=== PATIENT | male | born 1965 | race Two or more races ===

== ENCOUNTER 2020-07-07 10:06 | Outpatient (REF) | payer OTHER, SELFPAY | END 2020-07-07 10:07 | disposition home or self-care (01) | LOC: HO.LAB 10:06 | PROVIDERS: Visit Provider Internal Medicine | DX: Z20.822 Contact with and (suspected) exposure to COVID-19 (principal) | CPT/HCPCS: 36415; C9803; U0003; U0005 ==

== ENCOUNTER 2020-07-20 12:20 | Outpatient (REF) | payer OTHER, SELFPAY | END 2020-07-20 12:21 | disposition home or self-care (01) | LOC: HO.LAB 12:20 | PROVIDERS: Visit Provider Internal Medicine | DX: Z20.822 Contact with and (suspected) exposure to COVID-19 (principal) | CPT/HCPCS: 36415; C9803; U0003; U0005 ==

== ENCOUNTER 2020-08-21 09:00 | Outpatient (REF) | payer OTHER, SELFPAY ==
[2020-08-26 14:45] LABS: FIT Int Ctl YES; FIT1 NEGATIVE (NEGATIVE); FIT2 NEGATIVE (NEGATIVE)
== END 2020-08-21 09:01 | disposition home or self-care (01) ==
LOC: HO.LNP 09:00
PROVIDERS: Visit Provider Internal Medicine Gastroenterology
DX: R19.5 Other fecal abnormalities (principal)
CPT/HCPCS: 82274

== ENCOUNTER → 2021-01-26 15:12 | Outpatient (BNVA) | payer OTHER, SELFPAY | PROVIDERS: Referring Provider Nurse Practitioner Family; Visit Provider Nurse Practitioner Family | DX: Z12.11 Encounter for screening for malignant neoplasm of colon (principal) | CPT/HCPCS: 99202 ==

== ENCOUNTER 2021-03-04 10:09 | Day surgery (SDC) | payer OTHER, SELFPAY ==
[2021-02-26 14:09] VITALS: BMI 26.2
--- NOTE | 2021-03-04 10:23 | MHC.SHP ---
Pre-Procedural Eval Section A Date of Service: 03/04/21 Section B Chief Complaint: screening Relevant Family History (Specify if Yes): No Relevant Social History: None Present Medications: see Short Stay Collaborative assessment Medical History: Significant History (DM) History of Previous Operations: Relevant previous surgery/procedure and date(s) (hernia ) Allergies: Allergies Allergy/AdvReac Type Severity Reaction Status Date / Time No Known Allergies Allergy Verified 01/26/21 15:24 Review of Systems Sugical H&P ROS: Negative: Constitution, Cardiovascular, Respiratory, Neurological, Psychiatric, Hem-Onc, Allergic/Immunologic, Gastrointestinal, Genitourinary, Musculoskeletal, Integumentary, Endocrine and Eyes/Ears/Nose/Throat Exam Surgical H&P Exam: Normal: HEENT, Normal: Heart, Normal: Lungs, Normal: Extremities, Normal: Abdomen, Normal: Skin and Normal: Neurological Plan Diagnosis/Plan: Unchanged I have reviewed the history and physical and performed a pertinent physical examination on my patient. No changes have occurred unless specified.
--- NOTE | 2021-03-04 10:34 | HO.ANESPROP2 ---
[facility] Past Medical History Medical History (Updated 02/26/21 @ 14:09 by Nani Peters RN) Diabetes Elevated cholesterol History of COVID-19 Functional capacity: independent ambulation Family History Family History (Updated 01/26/21 @ 15:35 by Key Colbert) Mother HTN (hypertension) Diabetes Heart disease Family history of problems with anesthesia: No Surgical History Surgical History H/O colonoscopy Hernia History of Problems with Anesthesia: No Social History Social History Household Members: Family Alcohol intake: current Alcohol intake frequency: holidays/special occasions only Patient Tobacco Use Status: Never used Tobacco Use of substances other than those prescribed or required for medical reasons: No Advance Directives Information Provided: Yes (informational brochure mailed) Advance Directives on File: No Meds Allergies Allergy/AdvReac Type Severity Reaction Status Date / Time No Known Allergies Allergy Verified 01/26/21 15:24 Home Medications Medication Instructions Recorded Confirmed Last Taken Type metformin 500 mg tablet,extended 1,000 mg PO BID 01/26/21 02/26/21 Unknown History release 24 hr rosuvastatin 10 mg tablet 10 mg PO BEDTIME 01/26/21 02/26/21 Unknown History Exam Exam Date and Time: March 04, 2021 1034 Height,Weight and Vital Signs: Height 6 ft 3 in Weight 95.254 kg Airway Mallampati Class: II TM Dist: >3cm Neck ROM: Full Heart: RRR Lungs: CTA Assessment and Plan Final Anesthetic Review Family History of Problems with Anesthesia: No History of Problems with Anesthesia: No
[2021-03-04 10:40] VITALS: BP 119/84; PULSE 72; RESP 16; TEMP 36.2; O2SAT 97
[2021-03-04 10:43] LABS: Glucose, Whole Blood 135 mg/dL (60-115)
[2021-03-04] MEDS: Lactated Ringers 1,000 ML 999 ML IV (10:48)
--- NOTE | 2021-03-04 10:51 | PM.OP ---
Brief Operative Note Date of Service: 03/04/21 Pre-op diagnosis: colon screening Post-op diagnosis: same Procedure: see op note Surgeon: Raul Xie MD Anesthesia: MAC Was an Audio Visual Technician used for this Procedure?: No Estimated blood loss (mL): 0 Condition: stable Disposition: PACU
--- NOTE | 2021-03-04 10:51 | W.PM.OPN ---
Operative Note Operative Note Date of Service: 03/04/21 Narrative: Operative Information Procedure Description: Colonoscopy COLONOSCOPY Instrument: Olympus variable stiffness pediatric scope 190L Colonoscopy Monitoring: Vital signs and clinical assessment, continuous EKG monitoring, Pulse oximetry, Carbon Dioxide monitoring and blood pressure monitoring were done throughout the procedure. Colon withdrawal time was 13 minutes. Procedure: The patient was placed in the left lateral decubitis position and pre-procedure medications were administered. After a digital rectal examination of the ano-rectum, the video colonoscope was inserted into the rectum and advanced through the colon to the cecum/TI. The colonoscope was slowly withdrawn in a retrograde panoramic fashion and the colon mucosa was carefully examined including a retroflexed view of the rectum. Findings and interventions are described below. Procedure Difficulty:easy Findings: Terminal Ileum-normal Cecum:normal Ascending Colon: normal Transverse Colon -normal Descending Colon:normal Sigmoid Colon: x 3 sessile polyps 9-10 mm removed with cold snare and retrieved Rectum: Retroflexion with small internal hemorrhoids, grade I Anorectum - normal Colon preparation: [place] Bowel Preparation Scale Right colon; 2 (some staining of cecum not fully cleanable) Transverse colon: 3 Left colon; 3 (0 = Unprepared colon segment with mucosa not seen due to solid stool that cannot be cleared. 1 = Portion of mucosa of the colon segment seen, but other areas of the colon segment not well seen due to staining, residual stool and/or opaque liquid. 2 = Minor amount of residual staining, small fragments of stool and/or opaque liquid, but mucosa of colon segment seen well. 3 = Entire mucosa of colon segment seen well with no residual staining, small fragments of stool or opaque liquid) Impression and Post Procedure Diagnosis: polyps internal hemorrhoids Plan: High fiber diet leaflet Avoid straining at stool, epsom salts and sitz bath, anusol supps or cream Repeat Colonoscopy in 3-5 years due to polyps or earlier if clinically indicated Above findings were reviewed with the patient and relevant handouts were provided if indicated.
[2021-03-04 11:24] VITALS: BP 102/66; PULSE 60; RESP 16; TEMP 36.3; O2SAT 98
[2021-03-04 11:42] VITALS: BP 109/76; PULSE 61; RESP 20; TEMP 36.3; O2SAT 99
--- NOTE | 2021-03-04 12:49 | HO.POSTANES ---
Post Anesthesia Evaluation Post Anesthesia Evaluation Vital Signs: Vital Signs Temp Pulse Resp BP Pulse Ox 03/04/21 11:42 97.4 F 61 20 109/76 99 03/04/21 11:24 97.4 F 60 16 102/66 98 03/04/21 10:40 97.1 F 72 16 119/84 97 Anesthesia: Monitored Mental Status: Awake Pain Control: Satisfactory Hydration: Adequate Anesthesia-Related Issues: No Anes. Related Issues
== END 2021-03-04 12:02 | disposition home or self-care (01) ==
PROVIDERS: PCP Nurse Practitioner Family; Visit Provider Internal Medicine Gastroenterology
PROC: 0DJD8ZZ Inspection of Lower Intestinal Tract, Via Natural or Artificial Opening Endoscopic (ICD-10-PCS; CPT 45378; principal; 2021-03-04 11:40)
DX: Z12.11 Encounter for screening for malignant neoplasm of colon (principal); D12.5 Benign neoplasm of sigmoid colon; K64.0 First degree hemorrhoids; E11.9 Type 2 diabetes mellitus without complications; Z79.84 Long term (current) use of oral hypoglycemic drugs
CPT/HCPCS: 45385; 82947; 88305

== ENCOUNTER → 2021-03-26 11:04 | Outpatient (BNVA) | payer OTHER, SELFPAY | PROVIDERS: Visit Provider Nurse Practitioner Family ==

== ENCOUNTER 2022-01-24 13:05 | Outpatient (REF) | payer OTHER, SELFPAY ==
--- NOTE | ~2022-01-24 | XR_ITS ---
EXAMINATION: XR LUMBOSACRAL SPINE WITH OBLIQUES CLINICAL INFORMATION: Low back pain COMPARISON: None TECHNIQUE: AP, both oblique, and lateral views of the lumbar spine. Lateral view of the lumbosacral junction. FINDINGS: Bone alignment is normal. No fracture or dislocation is seen. Disc spaces are normal. There is mild lower lumbar spine facet arthritis at L5-S1. No pars defect is seen. XR/XR lumbar spine 4V min IMPRESSION: Mild lower lumbar spine facet arthritis.
--- NOTE | ~2022-01-24 | XR_ITS ---
EXAMINATION: BILATERAL HAND X-RAY CLINICAL INFORMATION: Pain COMPARISON: None TECHNIQUE: 3 views of each hand FINDINGS: Bone alignment is normal. No fracture or dislocation is seen. Joint spaces are normal. Soft tissues are normal. XR/XR hand LT min 3V IMPRESSION: Unremarkable exam.
--- NOTE | ~2022-01-24 | XR_ITS ---
EXAMINATION: BILATERAL HAND X-RAY CLINICAL INFORMATION: Pain COMPARISON: None TECHNIQUE: 3 views of each hand FINDINGS: Bone alignment is normal. No fracture or dislocation is seen. Joint spaces are normal. Soft tissues are normal. XR/XR hand RT min 3V IMPRESSION: Unremarkable exam.
== END 2022-01-24 13:06 | disposition home or self-care (01) ==
LOC: HO.XRAY 13:05
PROVIDERS: PCP Registered Nurse; Visit Provider Registered Nurse
DX: M79.641 Pain in right hand (principal); M79.642 Pain in left hand; M54.50 Low back pain, unspecified
CPT/HCPCS: 72110; 73130

== ENCOUNTER 2023-06-30 13:44 | Outpatient (REF) | payer OTHER, SELFPAY ==
[2023-06-30 16:33] LABS: Estimated Average Glucose 183 mg/dL
[2023-06-30 16:35] LABS: Alanine Aminotransferase 23 U/L (0-40); Albumin Level 4.3 g/dL (3.5-5.0); Alkaline Phosphatase 60 U/L (39-117); Anion Gap 11 (12-20); Aspartate Amino Transferase 14 U/L (5-37); Bilirubin Total 0.3 mg/dL (0.0-1.0); Blood Urea Nitrogen 20 mg/dL (9-16); Calcium 9.4 mg/dL (8.4-10.2); Carbon Dioxide 31 mmol/L (22-29); Chloride 103 mmol/L (96-108); Cholesterol 225 mg/dL (<200); Estimated Glomerular Filt Rate > 60; Glucose Random 167 mg/dL (60-115); HDL Cholesterol 36 mg/dL (>40); LDL Cholesterol Calculated 121 mg/dL (<100); Potassium 4.6 mmol/L (3.3-5.1); Sodium 140 mmol/L (135-145); Total Protein 7.5 g/dL (6.5-8.0); Triglycerides 340 mg/dL (<150)
[2023-06-30 16:55] LABS: Prostate Specific Antigen 0.41 ng/mL (<0.05-4.0)
[2023-06-30 17:07] LABS: Creatinine Urine 100.79 mg/dL; Microalbumin Urine < 5.0 mg/L
== END 2023-06-30 13:45 | disposition home or self-care (01) ==
LOC: HO.HHCL 13:44
PROVIDERS: Visit Provider Registered Nurse
DX: Z00.00 Encounter for general adult medical examination without abnormal findings (principal); E11.65 Type 2 diabetes mellitus with hyperglycemia; Z12.5 Encounter for screening for malignant neoplasm of prostate
CPT/HCPCS: 36415; 80053; 80061; 82043; 82570; 83036; 84153

== ENCOUNTER 2023-07-21 10:14 | Outpatient (REF) | payer OTHER, SELFPAY ==
--- NOTE | ~2023-07-21 | XR_ITS ---
EXAMINATION: XR SHOULDER, LEFT CLINICAL INFORMATION: Left shoulder pain. Patient states pain over a month, denies injury, worse when sleeping on it. COMPARISON: None available. TECHNIQUE: 5 views of the left shoulder. FINDINGS: Moderate degenerative changes in the acromioclavicular joint with joint space narrowing and hypertrophic change. Glenohumeral alignment is preserved. XR/XR shoulder LT min 2V IMPRESSION: Moderate degenerative changes in the acromioclavicular joint.
[2023-07-27 11:53] LABS: Testosterone, Total 262 ng/dL (250-1100)
== END 2023-07-21 10:15 | disposition home or self-care (01) ==
LOC: HO.HHCL 10:14
PROVIDERS: Visit Provider Registered Nurse
DX: M25.512 Pain in left shoulder (principal); G89.29 Other chronic pain; N52.9 Male erectile dysfunction, unspecified
CPT/HCPCS: 36415; 73030; 84403; 84443

== ENCOUNTER 2023-09-26 14:45 | Outpatient (AMB) | payer OTHER, SELFPAY ==
--- NOTE | 2023-09-26 15:10 | MHC.OFFVIS ---
Intake Visit Reasons: erectile dysfunction Intake Note: New Patient presents for initial visit for erectile dysfunction Urology Medications: none Blood Thinner: none Deputy Sheriff Required: No Accompanied by: Self / Same As Patient Allergies No Known Allergies Allergy (Verified 09/26/23 17:21) Medication List - Last Reconciled 09/26/23 by MARTIN Naidu ibuprofen 600 mg PO Q6H PRN metformin ER 1,000 mg PO BID rosuvastatin 20 mg PO BEDTIME sildenafil (Viagra) 25 - 50 mg PO tadalafil (Cialis) 5 mg PO DAILY 90 days HPI Comments Details: Ascencion is a very pleasant 58-year-old male patient of Dr. Rizzo. He has a past medical history of hypercholesteremia and type 2 diabetes. He presents to the office today as a new patient for low libido. In discussion with the patient today he reports having followed up with his PCP has he has noted worsening libido issues over the last 6 months to a year. He reports initially he thought he was experiencing erectile dysfunction however he has had no issues with obtaining and maintaining erections. He reports feeling his sexual desire is significantly decreased. 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 He reports getting last November. He also discusses his struggle with maintaining his hemoglobin A1c. He reports initially upon diagnosis of his diabetes he had a hemoglobin A1c of 14 however he was able to get it down to 6 however has noted over the last 6-8 months he continues with elevated A1c most recently in July 2023 hemoglobin A1c 8.0. He otherwise denies any bothersome urinary issues or concerns. He denies urinary urgency, urinary frequency, incontinence, nocturia, hematuria, dysuria, foul smelling urine, changes to urinary stream, flank pain, fever, and or chills. He is happy with his current voiding parameters. In review of patient's chart it appears testosterone and PSA levels were ordered and obtained. These results reviewed with the patient today. PSA 07/08 0.4 Total testosterone 08/05 262 Discussed at length potential causes of low libido as well as lifestyle modifications to assist with low libido. He otherwise offers no other issues or concerns at this time. [facility] Medical History Tubular adenoma Elevated cholesterol History of COVID-19 Diabetes Surgical History H/O colonoscopy Hernia Family History Mother HTN (hypertension) Diabetes Heart disease Social History Household Members: Family Alcohol intake: current Alcohol intake frequency: holidays/special occasions only Patient Tobacco Use Status: Never used Tobacco Review of Systems Const All systems reviewed & are unremarkable except as noted in HPI and below Physical Exam Const General: cooperative, healthy appearing, comfortable, no acute distress, well developed, alert and awake Orientation/consciousness: patient oriented x3 Limitations: no limitations HEENT Head: Yes normal to inspection, Yes normocephalic and Yes atraumatic Ears: hearing grossly normal bilaterally Eyes General: appearance normal, both eyes and all related structures Neck Neck: Yes normal visual inspection and Yes trachea midline Chest Chest palpation & inspection: normal inspection of the chest Resp Effort & Inspection: normal respiratory effort and able to speak in complete sentences Cardio Rate: regular rate GI Inspection: Yes normal to inspection General: Yes no CVA tenderness Back/Spine/Pelvis Back: no CVA tenderness Skin General skin exam: no rashes or lesions noted Neuro General: patient oriented x3 Extrem General: Yes normal to inspection Psych Appearance: grossly normal and well kempt Mental Status: mental status grossly normal Speech and movement: Normal speech and movement present and Clear speech present Affect: normal affect Attitude: cooperative Thought process: Normal thought process present Thought content: Normal thought content present Insight: Fair insight present (Psych) Judgement: Fair judgement present (Psych) Results AMB Urinalysis, Automated UA Leukoctes 0 Ladi/uL Last Edit by [employer] Roberta on 09/26/23 15:26 UA Nitrite Negative Last Edit by [employer] Roberta on 09/26/23 15:26 UA Urobilinogen 0.2 mg/dL Last Edit by [employer] on 09/26/23 15:26 UA Protein 0 mg/dL Last Edit by [employer] on 09/26/23 15:26 UA pH 5.0 Last Edit by [employer] on 09/26/23 15:26 UA Blood 0 Mando/uL Last Edit by Beba Lamgen on 09/26/23 15:26 UA Specific [place] 1.030 Last Edit by Beba Carolegen on 09/26/23 15:26 UA Ketone Negative Last Edit by Beba Carolegen on 09/26/23 15:26 UA Bilirubin 0 mg/dL Last Edit by Beba Carolegen on 09/26/23 15:26 UA Glucose 0 mg/dL Last Edit by Beba Carolegen on 09/26/23 15:26 Results Reviewed Results Reviewed: Laboratory Last Values Urine pH (Auto) 5.0 09/26/23 15:24 Specific [place] (Auto) 1.030 09/26/23 15:24 Urine Protein (Auto) 0 mg/dL 09/26/23 15:24 Glucose (UA)(Auto) 0 mg/dL 09/26/23 15:24 Urine Ketones (Auto) Negative 09/26/23 15:24 Urine Blood (Auto) 0 Mando/uL 09/26/23 15:24 Urine Nitrite (Auto) Negative 09/26/23 15:24 Urine Bilirubin (Auto) 0 mg/dL 09/26/23 15:24 Urine Urobilinogen (Auto) 0.2 mg/dL 09/26/23 15:24 Leukocyte Esterase (Auto) 0 Ladi/uL 09/26/23 15:24 Assessment & Plan Assessment & Plan (1) Low libido: Code(s): R68.82 - Decreased libido Category: Medical Plan In office urinalysis results reviewed with the patient today; as noted above. Recent PSA and testosterone results reviewed with the patient today; as noted above. Discussed at length potential causes of low libido as well as further treatment options. Start low-dose Cialis 5 mg as discussed and prescribed. Patient currently denies any bothersome urinary issues or concerns. He reports be happy with current voiding parameters. Discussed at length importance of managing diabetes for improvement in overall health and well-being as well as low libido. Will obtain testosterone free and total in 3 months. Follow-up in 3 months with lab to be completed prior; or sooner with any issues, concerns, and or questions. Orders: Orders AMB Urinalysis Automated Today Z13.9 - Encounter for screening, unspecified Testosterone, Free/Total 3 Months E11.69 - Type 2 diabetes mellitus with other specified complication, N52.1 - Erectile dysfunction due to diseases classified elsewhere Medications: New tadalafil (Cialis) [id number] [facility] [id number] Member [id number] 5 mg PO DAILY 90 days 90 tabs 0RF Patient Instructions: The patient had an opportunity to ask questions regarding the treatment plan. All questions were answered. Physical exam, labs, and imaging were discussed and reviewed in detail. As well as risks, benefits, and discussion of treatment choices. No major barriers to understanding were identified. The patient expressed understanding and agreement with the above treatment plan. The patient was made aware they should contact our office by phone for worsening of their current condition, the appearance of new symptoms, or with any questions or concerns. Compliance is encouraged with any medications and follow up testing that is ordered. It is a privilege to be allowed the opportunity to participate in? your urological care.? Again, if you have any questions or concerns If you have any questions or concerns please do not hesitate to contact me. The office is [phone]. This note is constructed using voice recognition software. While every effort has been made to ensure accuracy stone gang sawyer errors may have been included. Yours sincerely, MARTIN Naidu Coding Level of Care Code New Pt Level 4 (60740) Diagnoses Low libido R68.82
== END 2023-09-26 15:57 | disposition home or self-care (01) ==
PROVIDERS: PCP Registered Nurse; Visit Provider Nurse Practitioner Family
DX: R68.82 Decreased libido (principal); Z13.9 Encounter for screening, unspecified
CPT/HCPCS: 99204

== ENCOUNTER → 2023-09-26 14:45 | Outpatient (BNVA) | payer OTHER, SELFPAY | PROVIDERS: PCP Registered Nurse; Visit Provider Nurse Practitioner Family | DX: R68.82 Decreased libido (principal); E11.69 Type 2 diabetes mellitus with other specified complication; N52.1 Erectile dysfunction due to diseases classified elsewhere | CPT/HCPCS: 81003; 99202 ==

== ENCOUNTER 2023-11-14 09:51 | Outpatient (AMB) | payer OTHER, SELFPAY ==
--- NOTE | 2023-11-14 10:08 | A.OFFVIS_ITS ---
Vital Signs 11/14/23 10:13 Height 6 ft 3 in Weight 214 lb 11.684 oz BMI 26.8 BP 124/68 Blood Pressure Location Lt brachial Position Sitting Pulse 66 Pulse Source Pulse Oximeter Pulse Oximetry (%) 98 Oxygen Delivery Method Room Air Intake Visit Reasons: 3 year recall Colonoscopy Intake Note: Ascencion presents in office for a scheduled 3 year FUV for recall colo s/p CC; Pt reports that they have remained stable since their previous colo s/p. Pt denies any sx or signifcant concerns at this time. 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 Patient will need to have her colonoscopy screening done in 3 years. As mentioned above in HPI patient denies any him melena, hematochezia, unintentional weight loss or ribbon like stools. Discussed with him early colorectal screening in blood relatives. Patient will call us sooner if he will have any symptoms. Status post colonoscopy As mentioned above in HPI patient denies any ill effects from the prep, anesthesia or procedure itself. Tubular adenoma without dysplasia or carcinoma found. Colorectal screening in 3 years. Patient will call us sooner if he will have any symptoms. Patient denies any GI symptoms moving his bowels normally. He is agreeable to plan of care and verbalizes understanding of instructions. He was given the opportunity to ask questions all questions answered TODAY'S VISIT: Patient reports that he has been feeling well since last time we have seen him. Last colonoscopy showed tubular adenoma without high-grade dysplasia or carcinoma and 3 years recommendation was made for colonoscopy. Patient denies any melena, hematochezia, unintentional weight loss or ribbon like stools. No issues with anesthesia in the past. No history of sleep apnea. Patient tolerate prep and procedure last time. Patient denies any family history of colorectal cancer COUNT INCLUDES [facility] Medical History Tubular adenoma Elevated cholesterol History of COVID-19 Diabetes Surgical History H/O colonoscopy Hernia Family History Mother HTN (hypertension) Diabetes Heart disease Social History Household Members: Family Alcohol intake: current Alcohol intake frequency: holidays/special occasions only Patient Tobacco Use Status: Never used Tobacco Review of Systems Const Denies weight gain and Denies weight loss ENT Reports no additional complaints, Denies dysphagia and Denies odynophagia Card Reports no additional complaints Resp Reports no additional complaints GI Denies abdominal pain, Denies belching, Denies melena, Denies bloating, Denies change in bowel habits, Denies dysphagia, Denies excessive flatus, Denies dyspepsia, Denies heartburn, Denies diarrhea, Denies loose stools, Denies nausea, Denies odynophagia and Denies vomiting Reports no additional complaints Musc Reports no additional complaints Neuro Reports no additional complaints Psych Reports no additional complaints Endo Reports no additional complaints Physical Exam Vital Signs: Last Vital Signs Pulse 66 11/14/23 10:13 BP 124/68 11/14/23 10:13 Pulse Ox 98 11/14/23 10:13 Oxygen Delivery Method Room Air 11/14/23 10:13 BMI result Body Mass Index 26.8 Const General: healthy appearing, no acute distress and well developed Nutritional Appearance: well nourished Orientation/consciousness: patient oriented x3 Resp Effort & Inspection: normal respiratory effort, able to speak in complete sen tences, no tracheal deviation and symmetric chest movement Auscultation: clear to auscultation bilaterally Cardio Rate: regular rate GI Inspection: Yes normal to inspection and No distended Palpation (GI): Soft to palpation, not firm, nontender and No hepatosplenomegaly present Auscultation: normal bowel sounds General: Yes no CVA tenderness Back/Spine/Pelvis Back: no CVA tenderness Skin General skin exam: elasticity normal, turgor normal and dry skin Neuro General: patient oriented x3 Psych Appearance: grossly normal Mental Status: mental status grossly normal Assessment & Plan Assessment & Plan (1) Tubular adenoma: Code(s): D36.9 - Benign neoplasm, unspecified site Category: Medical (2) Screen for colon cancer: Code(s): Z12.11 - Encounter for screening for malignant neoplasm of colon Plan What to expect before during and after procedure discussed with patient. Patient will have split MiraLax prep and Dulcolax. Stressed the importance about good bowel prep and clear liquid diet day before procedure. Patient denies any cardiac or respiratory symptoms. No history of sleep apnea. No issues with anesthesia in the past. Not on any anticoagulation medication. Patient will follow-up in the office after the procedure, sooner on as needed basis. He is agreeable to this plan and verbalizes understanding of instructions. He was given the opportunity to ask questions and all questions answered. Thank you for allowing me participate in his care Medications: New bisacodyl (Dulcolax (bisacodyl)) take 4 tabs at noon the day before your colonoscopy 20 mg (4 x 5 mg) PO ONCE 4 tabs 0RF 1 day Z12.11 - Encounter for screening for malignant neoplasm of colon polyethylene glycol 3350 (Miralax) As directed by gastroenterology department at [facility] 238 grams PO ONCE 238 grams 0RF Z12.11 - Encounter for screening for malignant neoplasm of colon Coding Level of Care Code Est Pt Level 3 (72936) Diagnoses Tubular adenoma D36.9 Screen for colon cancer Z12.11 Time Spent (min) 30 Comment 20 minutes spent with patient and additional 10 minutes spent reviewing his records
[2023-11-14 10:13] VITALS: BP 124/68; PULSE 66; O2SAT 98; BMI 26.8
== END 2023-11-14 10:58 | disposition home or self-care (01) ==
PROVIDERS: PCP Registered Nurse; Visit Provider Nurse Practitioner Family
DX: D36.9 Benign neoplasm, unspecified site (principal); Z12.11 Encounter for screening for malignant neoplasm of colon
CPT/HCPCS: 99213

== ENCOUNTER → 2023-11-14 09:51 | Outpatient (BNVA) | payer OTHER, SELFPAY | PROVIDERS: PCP Registered Nurse; Visit Provider Nurse Practitioner Family | DX: Z12.11 Encounter for screening for malignant neoplasm of colon (principal); D36.9 Benign neoplasm, unspecified site | CPT/HCPCS: 99212 ==

== ENCOUNTER 2023-12-22 09:06 | Outpatient (REF) | payer OTHER, SELFPAY ==
[2023-12-29 11:34] LABS: Testosterone, Free 56.9 pg/mL (35.0-155.0); Testosterone, Total 262 ng/dL (250-1100)
== END 2023-12-22 09:07 | disposition home or self-care (01) ==
LOC: HO.HHCL 09:06
PROVIDERS: Visit Provider Nurse Practitioner Family
DX: E11.69 Type 2 diabetes mellitus with other specified complication (principal); N52.1 Erectile dysfunction due to diseases classified elsewhere
CPT/HCPCS: 36415; 84402; 84403

== ENCOUNTER 2024-01-08 08:49 | Outpatient (AMB) | payer OTHER, SELFPAY ==
--- NOTE | 2024-01-08 08:49 | A.OFFVIS_ITS ---
Intake Visit Reasons: follow up labs Intake Note: Patient presents for tele visit follow up on: erectile dysfunction and testosterone lab results Testosterone: 262 Free Testosterone: 56.9 Urology Medications: sildenafil and tadalafil Blood Thinner: none Necktie Centralizing Machine Operator Required: No Accompanied by: Self / Same As Patient Allergies No Known Allergies Allergy (Verified 01/08/24 09:04) Medication List - Last Reconciled 01/08/24 by MARTIN Naidu bisacodyl (Dulcolax (bisacodyl)) 20 mg (4 x 5 mg) PO ONCE 1 day ibuprofen 600 mg PO Q6H PRN metformin ER 1,000 mg PO BID polyethylene glycol 3350 (Miralax) 238 grams PO ONCE rosuvastatin 20 mg PO BEDTIME sildenafil (Viagra) 25 - 50 mg PO tadalafil (Cialis) 5 mg PO DAILY 90 days HPI Comments Details: Ascencion is a very pleasant 58-year-old male patient of Dr. Rizzo. He has a past medical history of hypercholesteremia and type 2 diabetes. He is being follow-up on today via telehealth. Of note, patient was seen approximately 3 months ago as a new patient for low libido at which time low-dose Cialis was prescribed and labs were ordered for further assessment evaluation. These results reviewed with the patient today as noted and trended below. In discussion with the patient today he reports feeling low-dose Cialis has been helpful with obtaining morning erections and also feels this has helped him with his libido. He discusses continuing to eat healthier to lower his A1c. He otherwise denies any bothersome urinary issues or concerns. He denies urinary urgency, urinary frequency, incontinence, nocturia, hematuria, dysuria, foul smelling urine, changes to urinary stream, flank pain, fever, and or chills. He is happy with his current voiding parameters. Labs are as follows: PSA 07/08 0.4 Total testosterone 08/05 262, 01/05 262 Free testosterone 01/05 56.9 Discussed at length potential causes of low libido as well as lifestyle modifications to assist with low libido. He otherwise offers no other issues or concerns at this time. [facility] Medical History Tubular adenoma Elevated cholesterol History of COVID-19 Diabetes Surgical History H/O colonoscopy Hernia Family History Mother HTN (hypertension) Diabetes Heart disease Social History Household Members: Family Alcohol intake: current Alcohol intake frequency: holidays/special occasions only Patient Tobacco Use Status: Never used Tobacco Review of Systems Const All systems reviewed & are unremarkable except as noted in HPI and below Physical Exam Const General: cooperative Orientation/consciousness: patient oriented x3 Resp Effort & Inspection: able to speak in complete sentences Neuro General: patient oriented x3 Psych Speech and movement: Clear speech present Thought process: Normal thought process present Thought content: Normal thought content present Insight: Fair insight present (Psych) Judgement: Fair judgement present (Psych) Telehealth Telehealth Telehealth Platform: Our[employer] Location of provider rendering services: practice address Location of patient: address on file Patient Identification confirmed using: Name, : Yes Telehealth method: video Patient verbally consented to treatment: Yes Patient verbally consented to billing insurance company: Yes Patient informed of any privacy concerns related to visit: Yes Minutes spent on Phone/Video with Pt.: 15 Assessment & Plan Assessment & Plan (1) Low libido: Code(s): R68.82 - Decreased libido Category: Medical Plan Recent labs reviewed with the patient today; as noted above. Will continue 5 mg of Cialis daily; refill provided. Patient currently denies any bothersome urinary issues or concerns. He reports be happy with current voiding parameters. Will obtain testosterone free and total as well as hemoglobin A1c in 3 months. Follow-up in 3 months with labs to be completed prior; or sooner with any issues, concerns, and or questions. Orders: Orders Testosterone, Free/Total 3 Months R68.82 - Decreased libido Hemoglobin A1c Today E11.9 - Type 2 diabetes mellitus without complications Medications: Refilled tadalafil (Cialis) [id number] [facility] [id number] Member [id number] 5 mg PO DAILY 90 days 90 tabs 3RF Patient Instructions: The patient had an opportunity to ask questions regarding the treatment plan. All questions were answered. Physical exam, labs, and imaging were discussed and reviewed in detail. As well as risks, benefits, and discussion of treatment choices. No major barriers to understanding were identified. The patient expr essed understanding and agreement with the above treatment plan. The patient was made aware they should contact our office by phone for worsening of their current condition, the appearance of new symptoms, or with any questions or concerns. Compliance is encouraged with any medications and follow up testing that is ordered. It is a privilege to be allowed the opportunity to participate in? your urological care.? Again, if you have any questions or concerns If you have any questions or concerns please do not hesitate to contact me. The office is [phone]. This note is constructed using voice recognition software. While every effort has been made to ensure accuracy pulpwood dealer errors may have been included. Yours sincerely, MARTIN Naidu Coding Level of Care Code Tele Est Pt Level 3 (07468) Diagnoses Low libido R68.82
== END 2024-01-08 12:35 | disposition home or self-care (01) ==
LOC: HO.HUSH 08:49
PROVIDERS: PCP Registered Nurse; Visit Provider Nurse Practitioner Family
DX: R68.82 Decreased libido (principal)
CPT/HCPCS: 99213

== ENCOUNTER → 2024-01-08 08:49 | Outpatient (BNVA) | payer OTHER, SELFPAY | PROVIDERS: PCP Registered Nurse; Visit Provider Nurse Practitioner Family ==

== ENCOUNTER 2024-04-08 07:59 | Outpatient (REF) | payer OTHER, SELFPAY ==
--- NOTE | ~2024-04-08 | XR_ITS ---
EXAMINATION: XR HAND, RIGHT CLINICAL INFORMATION: nodule COMPARISON: None available. TECHNIQUE: PA, lateral, and oblique views of the right hand. FINDINGS: No displaced fracture or dislocation. Alignment is anatomic. Joint spaces are maintained. No erosions or soft tissue calcifications. XR/XR hand RT min 3V IMPRESSION: No acute abnormality. Electronically signed by: Bony Westbrook MD 04/08/2024 11:34 AM GERARDO
[2024-04-15 14:04] LABS: Testosterone, Total 290 ng/dL (250-1100)
== END 2024-04-08 08:00 | disposition home or self-care (01) ==
LOC: HO.HHCL 07:59
PROVIDERS: Visit Provider Nurse Practitioner Family
DX: R68.82 Decreased libido (principal); R22.31 Localized swelling, mass and lump, right upper limb
CPT/HCPCS: 36415; 73130; 84402; 84403

== ENCOUNTER 2024-04-23 08:45 | Outpatient (AMB) | payer OTHER, SELFPAY ==
--- NOTE | 2024-04-23 08:37 | A.OFFVIS_ITS ---
Intake Visit Reasons: 3m/labs(testosterone pending) Intake Note: Patient presents for tele visit follow up on: erectile dysfunction, low libido, and testosterone lab results Testosterone: 290 Free Testosterone: 67 Urology Medications: sildenafil and tadalafil Blood Thinner: none Grades 9 Thru 12 Visiting Teacher Required: No Accompanied by: Self / Same As Patient Allergies No Known Allergies Allergy (Verified 04/23/24 08:46) Medication List - Last Reconciled 04/23/24 by MARTIN Naidu bisacodyl (Dulcolax (bisacodyl)) 20 mg (4 x 5 mg) PO ONCE 1 day ibuprofen 600 mg PO Q6H PRN metformin ER 1,000 mg PO BID polyethylene glycol 3350 (Miralax) 238 grams PO ONCE rosuvastatin 20 mg PO BEDTIME sildenafil (Viagra) 25 - 50 mg PO tadalafil (Cialis) 5 mg PO DAILY 90 days HPI Comments Details: Ascencion is a very pleasant 58-year-old male patient of Dr. Rizzo. He has a past medical history of hypercholesteremia and type 2 diabetes. He is being follow-up on today via video telehealth. In discussion with the patient today he reports to be doing and feeling well. He reports significant improvement in his libido as well as erections with daily dosing of tadalafil. Recent testosterone results reviewed with the patient today. We discussed continuing lifestyle modifications to assist with erectile dysfunction. He otherwise denies any bothersome urinary issues or concerns. He denies urinary urgency, urinary frequency, incontinence, nocturia, hematuria, dysuria, foul smelling urine, changes to urinary stream, flank pain, fever, and or chills. He is happy with his current voiding parameters. Labs are as follows: PSA 07/08 0.4 Total testosterone 08/05 262, 01/05 262, 04/07 290 Free testosterone 01/05 56.9. 04/07 67.0 Discussed at length potential causes of low libido as well as lifestyle modifications to assist with low libido. He otherwise offers no other issues or concerns at this time. [facility] Medical History Tubular adenoma Elevated cholesterol History of COVID-19 Diabetes Surgical History H/O colonoscopy Hernia Family History Mother HTN (hypertension) Diabetes Heart disease Social History Household Members: Family Alcohol intake: current Alcohol intake frequency: holidays/special occasions only Patient Tobacco Use Status: Never used Tobacco Review of Systems Const All systems reviewed & are unremarkable except as noted in HPI and below Physical Exam Const General: cooperative, healthy appearing, comfortable, no acute distress, well developed, alert and awake Orientation/consciousness: patient oriented x3 Resp Effort & Inspection: normal respiratory effort and able to speak in complete sentences Neuro General: patient oriented x3 Psych Appearance: grossly normal Mental Status: mental status grossly normal Speech and movement: Clear speech present Affect: normal affect Attitude: cooperative Thought process: Normal thought process present Thought content: Normal thought content present Insight: Fair insight present (Psych) Judgement: Fair judgement present (Psych) Telehealth Telehealth Telehealth Platform: Telephone Location of provider rendering services: practice address Location of patient: address on file Patient Identification confirmed using: Name, : Yes Telehealth method: video Patient verbally consented to treatment: Yes Patient verbally consented to billing insurance company: Yes Patient informed of any privacy concerns related to visit: Yes Minutes spent on Phone/Video with Pt.: 15 Assessment & Plan Assessment & Plan (1) Low libido: Code(s): R68.82 - Decreased libido Category: Medical Plan Recent labs reviewed with the patient today; as noted above. Will continue 5 mg of Cialis daily; refill provided. Patient currently denies any bothersome urinary issues or concerns. He reports be happy with current voiding parameters. Will obtain testosterone free and total as well as hemoglobin A1c in 4-6 months. Follow-up in 4-6 months with labs to be completed prior; or sooner with any issues, concerns, and or questions. Orders: Orders Testosterone, Free/Total 4 Months E11.69 - Type 2 diabetes mellitus with other specified complication, N52.1 - Erectile dysfunction due to diseases classified elsewhere Hemoglobin A1c 4 Months E11.9 - Type 2 diabetes mellitus without complications Medications: Refilled tadalafil (Cialis) [id number] [facility] [id number] Member [id number] 5 mg PO DAILY 90 days 90 tabs 2RF Patient Instructions: The patient had an opportunity to ask questions regarding the treatment plan. All questions were answered. Physical exam, labs, and imaging were discussed and reviewed in detail. As well as risks, benefits, and discussion of treatment choices. No major barriers to understanding were identified. The patient expressed understanding and agreement with the above treatment plan. The patient was made aware they should contact our office by phone for worsening of their current condition, the appearance of new symptoms, or with any questions or concerns. Compliance is encouraged with any medications and follow up testing that is ordered. It is a privilege to be allowed the opportunity to participate in? your urological care.? Again, if you have any questions or concerns If you have any questions or concerns please do not hesitate to contact me. The office is [phone]. This note is constructed using voice recognition software. While every effort has been made to ensure accuracy engine oiler errors may have been included. Yours sincerely, MARTIN Naidu Coding Level of Care Code Tele Est Pt Level 3 (33703) Diagnoses Low libido R68.82
== END 2024-04-23 09:46 | disposition home or self-care (01) ==
LOC: HO.HUSH 08:45
PROVIDERS: PCP Registered Nurse; Visit Provider Nurse Practitioner Family
DX: R68.82 Decreased libido (principal)
CPT/HCPCS: 99213

== ENCOUNTER 2024-05-17 13:52 | Outpatient (REF) | payer OTHER, SELFPAY ==
--- NOTE | ~2024-05-17 | XR_ITS ---
CLINICAL HISTORY: Chronic left shoulder pain 4 view left shoulder Comparison: None Findings: Bones intact. No dislocations. Mild cystic change of the AC joint involving both distal clavicle and acromion. No significant loss of joint space or osteophytes. Intact glenohumeral joint. No erosions. No radiopaque foreign body. IMPRESSION: Mild arthrosis AC joint. This document has been electronically signed by: Niles Ramos MD on 05/20/2024 12:59:36
== END 2024-05-17 13:53 | disposition home or self-care (01) ==
LOC: HO.XRAY 13:52
PROVIDERS: PCP Registered Nurse; Visit Provider Registered Nurse
DX: M25.512 Pain in left shoulder (principal); G89.29 Other chronic pain
CPT/HCPCS: 73030

== ENCOUNTER → 2024-05-17 13:56 | Outpatient (BNV) | payer OTHER, SELFPAY | PROVIDERS: PCP Registered Nurse; Visit Provider Radiology Diagnostic Radiology | DX: M25.512 Pain in left shoulder (principal) | CPT/HCPCS: 73030 ==

== ENCOUNTER 2024-06-03 08:51 | Outpatient (AMB) | payer OTHER, SELFPAY ==
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
[2024-06-03 09:04] VITALS: BMI 26.7
== END 2024-06-03 09:39 | disposition home or self-care (01) ==
PROVIDERS: PCP Registered Nurse
DX: M67.441 Ganglion, right hand (principal); M18.11 Unilateral primary osteoarthritis of first carpometacarpal joint, right hand
CPT/HCPCS: 99204

== ENCOUNTER → 2024-06-03 08:51 | Outpatient (BNVA) | payer OTHER, SELFPAY | PROVIDERS: PCP Registered Nurse | DX: M67.441 Ganglion, right hand (principal); M18.11 Unilateral primary osteoarthritis of first carpometacarpal joint, right hand | CPT/HCPCS: 99202 ==

== ENCOUNTER 2024-07-02 08:29 | Day surgery (SDC) | payer OTHER, SELFPAY ==
[2024-06-27 13:56] VITALS: BMI 26.7
[2024-07-02 08:47] VITALS: BMI 26.1
--- NOTE | 2024-07-02 08:52 | P.HPSUR_ITS ---
Pre-Procedural Eval Section A - 24 Hr Update-Section A only Date of Service: 07/02/24 Section B - Complete if H&P > 30 days Chief Complaint: Encounter for screening for malignant neoplasm of Relevant Family History (Specify if Yes): No Relevant Social History: None Present Medications: see Short Stay Collaborative assessment Medical History: Significant History (Tubular adenoma Elevated cholesterol His tory of COVID-19 Diabetes) History of Previous Operations: Relevant previous surgery/procedure and date(s) (H/O colonoscopy Hernia) Allergies: Allergies Allergy/AdvReac Type Severity Reaction Status Date / Time No Known Allergies Allergy Verified 06/03/24 09:04 Review of Systems Sugical H&P ROS: Negative: Constitution, Cardiovascular, Respiratory, Neurological, Psychiatric, Hem-Onc, Allergic/Immunologic, Gastrointestinal, Genitourinary, Musculoskeletal, Integumentary, Endocrine and Eyes/Ears/Nose/Throat Exam Surgical H&P Exam: Normal: HEENT, Normal: Heart, Normal: Lungs, Normal: Extremities, Normal: Abdomen, Normal: Skin and Normal: Neurological Plan Diagnosis/Plan: Unchanged I have reviewed the history and physical and performed a pertinent physical examination on my patient. No changes have occurred unless specified. Time Spent With Patient Time: Total time managing care of this patient today ____ minutes.
[2024-07-02 08:56] VITALS: BP 148/85; PULSE 73; RESP 16; TEMP 37.1; O2SAT 98
[2024-07-02] MEDS: Lactated Ringers 1,000 ML 80 ML IVCONT (09:14)
[2024-07-02 09:23] LABS: Glucose, Whole Blood 124 mg/dL (60-115)
--- NOTE | 2024-07-02 09:36 | HO.ANESPROP2 ---
HPI - Anesthesia Eval Consult details Narrative: For colonoscopy PMFSH Active Problems Active Problems: All Active Problems Arthritis of carpometacarpal (CMC) joint of right thumb (Acute) Ganglion cyst of finger of right hand (Acute) Low libido (Acute) Tubular adenoma (Acute) Past Medical History Medical History Tubular adenoma Elevated cholesterol History of COVID-19 Diabetes Family History Family History Mother HTN (hypertension) Diabetes Heart disease Family history of problems with anesthesia: No Surgical History Surgical History H/O colonoscopy Hernia History of Problems with Anesthesia: No Social History Social History (Updated 06/03/24 @ 09:05 by NUHA Ibarra) Household Members: Family Alcohol intake: current Alcohol intake frequency: holidays/special occasions only Patient Tobacco Use Status: Never used Tobacco Use of substances other than those prescribed or required for medical reasons: No Are you DNR?: No Advance Directives: No Advance Directives Information Provided: Yes Nutrition Risks: No Nutritional Risk Poor oral hygiene: No Current occupational status: employed 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 Allergies Allergy/AdvReac Type Severity Reaction Status Date / Time No Known Allergies Allergy Verified 06/03/24 09:04 Active Medications: Current Medications Lactated Ringer's (Lr) 1,000 mls @ 80 mls/hr IVCONT .[id number] MENA Last Admin: 07/02/24 09:14 Dose: 80 mls/hr Home Medications ?Medication ?Instructions ?Recorded ?Confirmed ?Last Taken ?Type metformin 500 mg tablet,extended 1,000 mg PO BID 01/26/21 04/23/24 Unknown History release 24 hr ibuprofen 600 mg tablet 600 mg PO Q6H PRN 09/26/23 04/23/24 Unknown History rosuvastatin 20 mg tablet 20 mg PO BEDTIME 09/26/23 04/23/24 Unknown History sildenafil 25 mg tablet (Viagra) 25 - 50 mg PO 09/26/23 04/23/24 Unknown History Exam Height,Weight and Vital Signs: Height 6 ft 3 in Weight 94.7 kg Last Vital Signs Temp 98.8 F 07/02/24 08:56 Pulse 73 07/02/24 08:56 Resp 16 07/02/24 08:56 BP 148/85 H 07/02/24 08:56 Pulse Ox 98 07/02/24 08:56 O2 Del Method Room Air 07/02/24 08:56 Pertinent Lab Results Pertinent Lab Results: Laboratory Tests 07/02/24 09:20 POC Glucose 124 H Airway Mallampati Class: I TM Dist: <=3cm Neck ROM: Full Loose/Missing/Broken Teeth: No Heart: ok Lungs: ok Assessment and Plan Assessment Anesthesia Assessment: Anesthesia Plan Discussed and Chart Reviewed Final Anesthetic Review Family History of Problems with Anesthesia: No History of Problems with Anesthesia: No NPO: Yes ASA Class: II Final Preanesthetic Review: No Changes in Pt Med Stat, Meds/Allgs Chart Reviewed, Consent Obtained/Reviewed and Anes Risks/Benef Reviewed Patient Risk: Intermediate Procedure Risk: Low Anesthetic Plan Anesthetic Plan: MAC: and Agree w/ Assess. and Plan Disposition: Standard PACU
--- NOTE | 2024-07-02 10:49 | HO.OPN-COLON ---
Colonoscopy Operative Note Operative Note Date of Service: 07/02/24 Narrative: Operative Information Procedure Description: Colonoscopy Indication: screening Anesthesia: MAC COLONOSCOPY Instrument: Olympus variable stiffness pediatric scope 190L Colonoscopy Monitoring: Vital signs and clinical assessment, continuous EKG monitoring, Pulse oximetry, Carbon Dioxide monitoring and blood pressure monitoring were done throughout the procedure. Colon withdrawal time was 16 minutes. Procedure: The patient was placed in the left lateral decubitis position and pre-procedure medications were administered. After a digital rectal examination of the ano-rectum, the video colonoscope was inserted into the rectum and advanced through the colon to the cecum/TI. The colonoscope was slowly withdrawn in a retrograde panoramic fashion and the colon mucosa was carefully examined including a retroflexed view of the rectum. Findings and interventions are described below. Procedure Difficulty: easy Findings: Terminal Ileum-normal Cecum:normal Ascending Colon: 6-8 mm sessile polyp removed with cold forceps and x 2 clips applied for hemostasis Transverse Colon -normal Descending Colon:normal Sigmoid Colon: 6-9 mm sessile polyp removed with cold snare Rectum: Retroflexion with small internal hemorrhoids seen, grade I Anorectum - normal Intervention: cold forceps, cold snare Colon preparation: [place] Bowel Preparation Scale Right colon; 1-2 Transverse colon: 2 Left colon; 2 (0 = Unprepared colon segment with mucosa not seen due to solid stool that cannot be cleared. 1 = Portion of mucosa of the colon segment seen, but other areas of the colon segment not well seen due to staining, residual stool and/or opaque liquid. 2 = Minor amount of residual staining, small fragments of stool and/or opaque liquid, but mucosa of colon segment seen well. 3 = Entire mucosa of colon segment seen well with no residual staining, small fragments of stool or opaque liquid) Impression and Post Procedure Diagnosis: colon polyps internal hemorrhoids Plan: High fiber diet leaflet Avoid straining at stool, epsom salts and sitz bath, anusol supps or cream Repeat Colonoscopy in 3 years due to areas of fair prep on right and polyps or earlier if clinically indicated Above findings were reviewed with the patient and relevant handouts were provided if indicated.
[2024-07-02 10:57] VITALS: BP 93/56; PULSE 58; RESP 16; TEMP 36.3; O2SAT 94
[2024-07-02 11:11] VITALS: BP 110/78; PULSE 58; RESP 18; TEMP 36.6; O2SAT 96
== END 2024-07-02 11:53 | disposition home or self-care (01) ==
PROVIDERS: PCP Registered Nurse; Visit Provider Internal Medicine Gastroenterology
PROC: 0DJD8ZZ Inspection of Lower Intestinal Tract, Via Natural or Artificial Opening Endoscopic (ICD-10-PCS; CPT 45378; principal; 2024-07-02 11:50)
DX: Z12.11 Encounter for screening for malignant neoplasm of colon (principal); D12.5 Benign neoplasm of sigmoid colon; K63.5 Polyp of colon; K64.0 First degree hemorrhoids; E78.00 Pure hypercholesterolemia, unspecified; E11.9 Type 2 diabetes mellitus without complications; Z79.1 Long term (current) use of non-steroidal anti-inflammatories (NSAID); Z79.84 Long term (current) use of oral hypoglycemic drugs; Z79.899 Other long term (current) drug therapy; Z98.890 Other specified postprocedural states
CPT/HCPCS: 45385; 45380; 82947; 88305; J2003; J2704

== ENCOUNTER → 2024-07-02 08:29 | Outpatient (BNV) | payer OTHER, SELFPAY | PROVIDERS: PCP Registered Nurse; Visit Provider Internal Medicine Gastroenterology | DX: Z12.11 Encounter for screening for malignant neoplasm of colon (principal); D12.5 Benign neoplasm of sigmoid colon; K63.5 Polyp of colon; K64.0 First degree hemorrhoids | CPT/HCPCS: 45380; 45385 ==

== ENCOUNTER 2024-07-31 13:53 | Outpatient (AMB) | payer OTHER, SELFPAY ==
[2024-07-31 14:20] VITALS: BMI 26.0
--- NOTE | 2024-07-31 14:20 | MHC.OFFVIS ---
Vital Signs 07/31/24 14:20 Height 6 ft 3 in Weight 208 lb BMI 26.0 Intake Visit Reasons: Preop RT RF retinacular cyst exc 08/19/24 AR Intake Note: Ascencion is a 59 year old - hand dominant male who presents today for his pre operative visit for his scheduled right ring finger retinacular cyst excision w/ Dr Lucy Guidry scheduled for 08/19/24. Allergies No Known Allergies Allergy (Verified 07/31/24 14:26) HPI HPI Preop RT RF retinacular cyst exc 08/19/24 AR: Details: Ascencion is a 59 year old right hand dominant man who presents to discuss his right ring finger volar retinacular cyst. He complains of a mass at the base of his right ring finger, which has been present for several months. He says this has been changing in size and causes him pain with gripping activities. 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 Review of Systems Const All systems reviewed & are unremarkable except as noted in HPI and below Physical Exam Vital Signs: BMI result Body Mass Index 26.0 Const General: cooperative, healthy appearing and no acute distress Orientation/consciousness: patient oriented x3 HEENT Head: Yes normocephalic and Yes atraumatic Eyes EOM: EOMs intact bilaterally Resp Effort & Inspection: normal respiratory effort and able to speak in complete sentences Cardio Jugular venous distension: no JVD Skin General skin exam: turgor normal Rashes: no rashes Neuro General: patient oriented x3 Extrem Other: Evaluation of Right Upper Extremity: The patient is alert, oriented, and in no acute distress Neuro: Median, Ulnar, Radial nerves motor and sensory intact and sensation is normal to the tips of all digits Vascular: Cap refill brisk ROM: He can make a fist and extend all his digits No locking or catching Skin: No lacerations or abrasions. General: No Ecchymosis. No Erythema or evidence of infection. There is a mass just distal to the palmar digital crease, over the flexor tendon sheath of the ring finger, measuring ~5mm in diameter. This is most consistent with a volar retinacular ganglion Radiographs: 3 views of the right hand form 04/08/24 were reviewed by me today in clinic. They show no fractures or dislocations. There is basal joint arthritis with joint space narrowing, subchondral sclerosis, and osteophyte formation. Psych Appearance: grossly normal Affect: normal affect Attitude: cooperative Assessment & Plan Assessment & Plan (1) Ganglion cyst of finger of right hand: Comment: RF Code(s): M67.441 - Ganglion, right hand Category: Medical (2) Arthritis of carpometacarpal (CMC) joint of right thumb: Code(s): M18.11 - Unilateral primary osteoarthritis of first carpometacarpal joint, right hand Category: Medical (3) Diabetes: Comment: new dx per HGI note-taking metformin Code(s): E11.9 - Type 2 diabetes mellitus without complications Category: Medical Plan Assessment & Plan: 1. Right ring finger volar retinacular cyst Volar MCP joint Measuring ~5mm in diameter I educated him about this condition I discussed operative and non-operative treatment options The patient would like to proceed with surgery The risks and benefits of operative treatment were discussed with the patient and the patient wishes to proceed with surgery. These risks include, but are not limited to risk of damage to blood vessels, nerves, tendons, infection, recurrence, incomplete relief of preoperative symptoms, persistent pain, possible need for further surgery and the risks associated with regional blocks and anesthesia. The plan is to take the patient to the operating room sometime on 08/19/24 for the following procedures: 1. Right ring finger mass excision, under local All of the preoperative paperwork including the consent was reviewed today. All the patient's questions were answered. The patient understands that they will be contacted by our physician assistant surgery soon to schedule this procedure. He is open to having srgery sooner if possible He denies blood thinners, asthma, heart, lung, kidney issues He is a Diabetic, he says his most recent HgA1c was 6.7% 2. Right basal joint arthritis No complaints today Scribed for Lucy Guidry MD by Huey Isaac, medical sales consultant, on 07/31/24 at 2:50 PM, EST. Coding Level of Care Code Est Pt Level 4 (75582) Diagnoses Ganglion cyst of finger of right hand M67.441 Arthritis of carpometacarpal (CMC) joint of right thumb M18.11 Diabetes E11.9
== END 2024-07-31 14:57 | disposition home or self-care (01) ==
LOC: HO.HOS 13:53
PROVIDERS: PCP Registered Nurse; Visit Provider Orthopaedic Surgery
DX: M67.441 Ganglion, right hand (principal); M18.11 Unilateral primary osteoarthritis of first carpometacarpal joint, right hand; E11.9 Type 2 diabetes mellitus without complications
CPT/HCPCS: 99024

== ENCOUNTER 2024-08-12 07:51 | Day surgery (SDC) | payer OTHER, SELFPAY ==
--- NOTE | 2024-08-09 10:14 | P.CONAN_ITS ---
HPI - Anesthesia Eval Consult details Narrative: 59yo M for Right Ring Finger Retinacular Excision Cyst s/p colo 06/2024 with MAC PMFSH Active Problems Active Problems: All Active Problems Diabetes (Acute) Arthritis of carpometacarpal (CMC) joint of right thumb (Acute) Ganglion cyst of finger of right hand (Acute) Low libido (Acute) Tubular adenoma (Acute) Past Medical History Medical History (Updated 07/31/24 @ 14:41 by Huey Isaac) Tubular adenoma Elevated cholesterol History of COVID-19 Diabetes Family History Family History Mother HTN (hypertension) Diabetes Heart disease Family history of problems with anesthesia: No Surgical History Surgical History H/O colonoscopy Hernia History of Problems with Anesthesia: No Social History Social History Household Members: Family Alcohol intake: current Alcohol intake frequency: holidays/special occasions only Patient Tobacco Use Status: Never used Tobacco Current occupational status: employed 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 Meds Allergies Allergy/AdvReac Type Severity Reaction Status Date / Time No Known Allergies Allergy Verified 07/31/24 14:26 Home Medications ?Medication ?Instructions ?Recorded ?Confirmed ?Last Taken ?Type metformin 500 mg tablet,extended 1,000 mg PO BID 01/26/21 04/23/24 Unknown History release 24 hr ibuprofen 600 mg tablet 600 mg PO Q6H PRN 09/26/23 04/23/24 Unknown History rosuvastatin 20 mg tablet 20 mg PO BEDTIME 09/26/23 04/23/24 Unknown History sildenafil 25 mg tablet (Viagra) 25 - 50 mg PO 09/26/23 04/23/24 Unknown History Assessment and Plan Assessment Anesthesia Assessment: Chart Reviewed Final Anesthetic Review Family History of Problems with Anesthesia: No History of Problems with Anesthesia: No
[2024-08-09 14:10] VITALS: BMI 25.4
[2024-08-12 08:21] VITALS: BP 137/83; PULSE 83; RESP 16; TEMP 36.8; O2SAT 96; BMI 25.7
--- NOTE | 2024-08-12 11:37 | P.OP_ITS ---
Operative Note Operative Note Date of Service: 08/12/24 Narrative: Operative Note Preop diagnosis: 1. Right ring finger retinacular cyst Postop diagnosis: same Procedure: 1. right ring finger excision of retinacular cyst Surgeon: Lucy Guidry MD Metallurgist Process: none Anesthesia: digital block using 1% lidocaine with epinephrine Findings: 4 mm volar retinacular ganglion found attached to the flexor tendon sheath. Filled with clear viscous fluid consistent with a ganglion. EBL: Less than 5 mL Tourniquet time: None Specimens: None Complications: None Disposition: Brought to recovery room in stable condition Plan: Follow-up for 7-10 days for wound check and suture removal and to check pathology Indications: The patient is 59 years old, with right ring finger retinacular cyst . The risks and benefits of operative treatment including but not limited to risk of damage to blood vessels, nerves, tendons, infection, persistent pain, persistent symptoms, recurrence or possible need for additional surgery were discussed with the patient and the patient wishes to proceed with surgery. Procedure: Once consent was obtained a digital block was performed in the preop area using a combination of 1% lidocaine with epinephrine. The patient was then brought back to the operating suite and placed on the operative table in supine position. The right upper extremity was prepped and draped in a standard surgical fashion. Once assured that we had a good block, I made a 1 cm oblique incision over the right ring finger retinacular cyst just distal to the palmar digital crease. The incision was made through the skin the subcutaneous tissues using a 15. Blade. I then dissected down to the level of the retinacular cyst using tenotomy and iris scissors. The retinacular cyst measured approximately 4 mm in diameter, and was attached to the flexor tendon sheath. The cyst was removed using iris scissors and was filled with clear viscous fluid consistent with a ganglion cyst. No further masses were appreciated. The patient was able to actively flex and extend the finger with no locking or catching. Once satisfied with Right ring finger retinacular cyst excision the wound was copiously irrigated with normal saline and hemostasis was obtained with a brief period of local pressure. The skin edges were reapproximated with some 5.0 nylon suture material and a sterile dressing was applied. The patient appears to have tolerated the procedure well and with no complications. All digits were well vascularized at the conclusion of the case.
--- NOTE | 2024-08-12 11:37 | MHC.SHP ---
Pre-Procedural Eval Section A - 24 Hr Update-Section A only Date of Service: 08/12/24 The patient is an INPATIENT: No Changes since office visit: No Cold of Flu in the past 2 weeks, No New Medical Problems, No Changes in Medication and No Patient answered all questions The patient has been examined within 24 hours of the surgical procedure. The History & Physical has been completed within 30 days and I have reviewed it.: Yes Section B - Complete if H&P > 30 days Chief Complaint: Ganglion, right hand Allergies: Allergies Allergy/AdvReac Type Severity Reaction Status Date / Time No Known Allergies Allergy Verified 08/12/24 08:19 Plan Diagnosis/Plan: Unchanged I have reviewed the history and physical and performed a pertinent physical examination on my patient. No changes have occurred unless specified. Time Spent With Patient Time: Total time managing care of this patient today ____ minutes.
[2024-08-12 12:26] VITALS: BP 120/74; PULSE 94; RESP 20; O2SAT 94
== END 2024-08-12 12:34 | disposition home or self-care (01) ==
PROVIDERS: PCP Registered Nurse; Visit Provider Orthopaedic Surgery
PROC: (CPT 26160; principal; 2024-08-12 10:10)
DX: M67.441 Ganglion, right hand (principal); M18.11 Unilateral primary osteoarthritis of first carpometacarpal joint, right hand; E78.00 Pure hypercholesterolemia, unspecified; E11.9 Type 2 diabetes mellitus without complications
CPT/HCPCS: 26160; J2004

== ENCOUNTER → 2024-08-12 07:51 | Outpatient (BNV) | payer OTHER, SELFPAY | PROVIDERS: PCP Registered Nurse; Visit Provider Orthopaedic Surgery | DX: M67.441 Ganglion, right hand (principal) | CPT/HCPCS: 26160 ==

== ENCOUNTER 2024-08-27 12:51 | Outpatient (AMB) | payer OTHER, SELFPAY ==
--- NOTE | 2024-08-27 12:52 | A.OFFVIS_ITS ---
Vital Signs 08/27/24 12:55 Height 6 ft 3 in Weight 203 lb 6 oz BMI 25.4 Handedness Right Intake Visit Reasons: PO RT RF retinacular cyst exc 08/12/24 AR Intake Note: Ascencion is a 59 year old right hand dominant male who presents today for a post operative visit s/p right ring finger excision of retinacular cyst DOS: 08/12/[address] Lucy Guidry. Patient reports pain with use of right hand. Denies any discharge. Denies numbness and tingling. His only concern today is the tightness he is having in the right ring finger. Sutures removed and steri strips applied. Patient had extreme tenderness with suture removal. Allergies No Known Allergies Allergy (Verified 08/27/24 12:57) HPI HPI PO RT RF retinacular cyst exc 08/12/24 AR: Details: Ascencion is a 59 year old right hand dominant male who presents today for a post operative visit s/p right ring finger excision of retinacular cyst DOS: 08/12/[address] Lucy Guidry. Patient reports pain with use of right hand. Denies any discharge. Denies numbness and tingling. His only concern today is the tightness he is having in the right ring finger. Sutures removed and steri strips applied. Patient had extreme tenderness with suture removal. 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 Neuro: Normal sensation of the tips of all digits of the right hand at this time Vascular: Cap refill brisk Pain: [id number] tenderness to palpation of the right ring finger at the level of the incision ROM: Patient is able to make a closed fist and extend all digits of the right hand fully and without difficulty Skin: Well-approximated incision site noted on the volar aspect of the right ring finger at the level of the proximal phalanx General: There is some mild erythema surrounding the incision site Psych: Appears grossly normal Affect normal Attitude cooperative Assessment & Plan Assessment & Plan (1) Ganglion cyst of finger of right hand: Comment: RF Code(s): M67.441 - Ganglion, right hand Category: Medical Plan 1. Status post right ring finger retinacular cyst excision DOS 08/12/2024 Patient appears to be recovering fairly well postoperatively Patient was educated about the typical recovery course At this time, patient was prescribed a one-week course of Augmentin out of an abundance of caution for potential superficial surgical site infection Follow-up in 1 week for wound check Patient was amenable to this plan Medications: New amoxicillin-pot clavulanate 875-125 mg 1 tab PO BID 7 days 14 tabs 0RF Coding Level of Care Code Global (50757) Diagnoses Ganglion cyst of finger of right hand M67.441
[2024-08-27 12:55] VITALS: BMI 25.4
--- OUTSIDE RECORDS SUMMARY | 2024-08-27 15:41 | XMS_ITS | Encounter Summary ---
Author Organization [employer] Address [address] [facility] 7 [place] [address] Care Team Providers Care Outside Parts Sales Name Role Phone [facility] Primary Care Provider [phone] Reason for Visit * Reason Onset Date Comments Med Refill 08/13/2023 Encounter Details Date Type Department Care Team ([facility] st Contact Info) Description 08/13/2023 Refill [facility] MED & PEDS [address] [place], [place] [phone] [facility] [address] [place], [place] [phone] Type 2 diabetes mellitus without complication, without long-term current use of insulin ([facility]) Social History Tobacco Use Types Packs/Day Years Used Date Smoking Tobacco: Never Smokeless Tobacco: Never Alcohol Use Standard Drinks/Week Comments Never 0 (1 standard drink = 0.6 oz pur e alcohol) Depression Answer Date Recorded Patient Health Questionnaire-9 Score 0 07/21/2023 Patient Health Questionnaire-9 Score 0 07/21/2023 Last PHQ-9: Questionnaire Data Not on file 0 07/21/2023 Housing Stability Answer Date Recorded What is your housing situation today? I have cleo swift 06/19/[address] you li ve. Do you have problems with any of the following? None of the above 06/19/2023 Food Insecurity Answer Date Recorded Within the past 12 months, y ou worried that your food would run out before you got money to buy more: Never True 06/19/2023 Within the past 12 months,th e food you bought just didn't last and you didn't have enough money to get more: Never True 09/2023 Transportation Answer Date Recorded In the past 12 months, has l ack of transportation kept you from medical appts, meetings, work or from getting things needed for daily living? No 06/19/2023 Utilities Answer Date Recorded In the past 12 months, has t he electric, gas, oil or water company threatened to shut off services in your home? No 06/19/2023 Depression Answer Date Recorded Patient Health Questionnaire-2 Score 0 07/21/2023 Sex and Gender Information Value Date Recorded Sex Assigned at Male 03/14/2022 10:37 AM EDT Legal Sex Male 10:37 AM EDT Gender Identity Male 03/14/2022 10:37 AM EDT Sexual Orientation Straight 03/14/2022 10 :37 AM EDT documented as of this encounter Plan of Treatment Not on file documented as of this encounter Visit Diagnoses Diagnosis Type 2 diabetes mellitus without complication, without long-term current use of insulin ([facility]) documented in this encounter Additional Health Concerns Assessment Noted Time PHQ-9 Depression Total Score: 0 07/21/19 24 9:18 AM EST documented as of this encounter Care Teams Outside Parts Sales Relationship Specialty Start Date End Date Kala Rizzo FNP [address] [place] [id number] PCP - General Family Medicine 10/22/21 documented as of this encounter
--- OUTSIDE RECORDS SUMMARY | 2024-08-27 15:41 | XMS_ITS | Encounter Summary ---
Author Organization [employer] Address [address] [facility] 7 [place] [address] Care Team Providers Care Return To Vendor Name Role Phone [facility] Primary Care Provider [phone] Reason for Visit * Reason Comments Med Change Request Encounter Details Date Type Department Care Team ([facility] st Contact Info) Description 08/10/2023 Refill [facility] MEDICINE [address] [place], [place] [phone] [facility] [address] [place], [place] [phone] Type 2 diabetes mellitus without complication, without long-term current use of insulin ([facility]) Social History Tobacco Use Types Packs/Day Years [...] complication, without long-term current use of insulin ([facility]) documented in this encounter Additional Health Concerns Assessment Noted Time PHQ-9 Depression Total Score: 0 07/21/19 24 9:18 AM EST documented as of this encounter Care Teams Return To Vendor Relationship Specialty Start Date End Date Kala Rizzo FNP [address] [place] [id number] PCP - General Family Medicine 10/22/21 documented as of this encounter
--- OUTSIDE RECORDS SUMMARY | 2024-08-27 15:41 | XMS_ITS | Encounter Summary ---
Author Organization [employer] Address [address] [facility] 7 [place] [address] Care Team Providers Care Automation Qa Lead Name Role Phone [facility] Primary Care Provider [phone] Reason for Visit * Reason Onset Date Comments Med Refill 06/29/2024 Encounter Details Date Type Department Care Team (Late st Contact Info) Description 06/29/2024 Refill [facility] MEDICINE [address] [place], [place] [phone] [facility] [address] [place], [place] [phone] Social History Tobacco Use Types Packs/Day Years Used Date Smoking Tobacco: Never Smokeless Tobacco: Never Alcohol Use Standard Drinks/Week Comments Never 0 (1 standard drink = 0.6 oz pur e alcohol) Depression Answer Date Recorded Patient Health Questionnaire-9 Score 0 01/26/2024 Patient Health Questionnaire-9 Score 0 01/26/2024 Last PHQ-9: Questionnaire Data Not on file 0 01/26/2024 Housing Stability Answer Date Recorded What is your housing situation today? I have cleo jamison 06/19/[address] you li [...] Date Recorded Patient Health Questionnaire-2 Score 0 01/26/2024 Internet Access Answer Date Recorded Internet Access Q1 Yes 01/26/2024 Internet Access Q2 Not on file 01/26/2024 Sex and Gender Information Value Date Recorded Sex Assigned at Male 03/14/2022 10:37 AM EDT Legal Sex Male 10:37 AM EDT Gender Identity Male 03/14/2022 10:37 AM EDT Sexual Orientation Straight 03/14/2022 10 :37 AM EDT documented as of this encounter Plan of Treatment Not on file documented as of this encounter Visit Diagnoses Not on filedocumented in this encounter Additional Health Concerns Assessment Noted Time PHQ-9 Depression Total Score: 0 01/26/20 24 9:15 AM EDT documented as of this encounter Care Teams Automation Qa Lead Relationship Specialty Start Date End Date Kala Rizzo FNP [address] [place] [id number] PCP - General Family Medicine 10/22/21 documented as of this encounter
--- OUTSIDE RECORDS SUMMARY | 2024-08-27 15:41 | XMS_ITS | Encounter Summary ---
Author Organization [employer] Address [address] [facility] 7 [place] [address] Care Team Providers Care Conche Loader And Unloader Name Role Phone [facility] Primary Care Provider [phone] Reason for Visit * Reason Onset Date Comments Med Refill 03/24/2024 Encounter Details Date Type Department Care Team (Late st Contact Info) Description 03/24/2024 Refill [facility] MED[facility] [address] [place], [place] [phone] [facility] [address] [place], [place] [phone] Mixed hyperlipidemia; Type 2 diabetes mellitus without complication, without long-term current use of insulin ([facility]); Erectile dysfunction, unspecified erectile dysfunction type Social History Tobacco Use Types Packs/Day Years [...] as of this encounter Visit Diagnoses Diagnosis Mixed hyperlipidemia Type 2 diabetes mellitus without complication, without long-term current use of insulin ([facility]) Erectile dysfunction, unspecified erectile dysfunction type documented in this encounter Additional Health Concerns Assessment Noted Time PHQ-9 Depression Total Score: 0 01/26/20 24 9:15 AM EDT documented as of this encounter Care Teams Conche Loader And Unloader Relationship Specialty Start Date End Date Kala Rizzo FNP [address] [place] [id number] PCP - General Family Medicine 10/22/21 documented as of this encounter
--- OUTSIDE RECORDS SUMMARY | 2024-08-27 15:41 | XMS_ITS | Clinical Summary ---
Author Organization [facility] Address [address] [place] [address] Care Team Providers Care Lubrication Servicer Name Role Phone Barrie Pink MD Primary Care Provider [phone] Allergies No known active allergies Medications multivitamin/ir on/folic acid (CENTRUM ORAL) Take 1 Tab by mouth daily. Active UNABLE TO FIND ELASTIC BANDAGES & SUPPORTS (WRIST BRACE DELUXE/RIGHT L-XL) MISC Active UNABLE TO FIND ELASTIC BANDAGES & SUPPORTS (WRIST BRACE DELUXE/LEFT L-XL) MISC Active Active Problems Problem Noted Date Diagnosed Date Bilateral inguinal hernia 09/04/2014 Immunizations Name Administration Dates Next Due Tdap Tetanus diptheria acell ular pertussis (Boostrix; Adacel) 7yo and older 11/05/2014 Surgical History Surgery Date Site/Laterality Comments COLONOSCOPY 2014 PROCEDURE: HISTORICAL COLONOSCOPY; COMMENT: 5 mm rectal polyps x 2: Tubular adenoma x2. Medical History Medical History Date Comments H/O hernia repair DX:H/O hernia repair Family History Medical History Relation Name Comments Diabetes Mother Heart attack Mother at age mid 70' Stroke Mother Diabetes Son 1 not sure if typ e1 or 2 Relation Name Status Comments Mother Son 1 Son 2 Social History Tobacco Use Types Packs/Day Years Used Date Smoking Tobacco: Never Alcohol Use Standard Drinks/Week Comments No 0 (1 standard drink = 0.6 oz pur e alcohol) Sex and Gender Information Value Date Recorded Sex Assigned at Not on file Legal Sex Male 4:18 AM EST Gender Identity Not on file Sexual Orientation Not on file Obstetrics History Plan of Treatment Health Maintenance Due Date Last Done Comments Pneumococcal Vaccine: 50+ Ye ars (1 of 1 - PCV) 2014 Zoster Vaccines (1 of 2) 2014 Cholesterol Screening (Lipid Panel) 04/17/2022 04/10/2015 Colorectal Cancer Screening: Colonoscopy 04/17/2022 12/22/2014 Social Influencers of Health Screening 04/17/2022 Depression Screening 04/29/2023 04/29/2022 COVID-19 Vaccine (1 - 2023-2 5 season) 2024 DTaP,Tdap,and Td Vaccines (2 - Td or Tdap) 11/05/2024 11/05/2014 Influenza Vaccine (Season Ended) 2025 RSV Immunization Adult Patie nts (1 - 1-dose 75+ series) 2039 HIV Screening Completed 02/23/2004 Hepatitis C Screening Completed 09/07/2015 HIB Vaccines Aged Out No longer eligi ble based on patient's age to complete this topic HPV Vaccines Aged Out No longer eligi ble based on patient's age to complete this topic Hepatitis A Vaccines Aged Out No long er eligible based on patient's age to complete this topic Hepatitis B Vaccines Aged Out No long er eligible based on patient's age to complete this topic IPV Vaccines Aged Out No longer eligi ble based on patient's age to complete this topic MMR Vaccines Aged Out No longer eligi ble based on patient's age to complete this topic Meningococcal ACWY Vaccine Aged Out N o longer eligible based on patient's age to complete this topic Meningococcal B Vaccine Aged Out No l onger eligible based on patient's age to complete this topic Pneumococcal Vaccine: Pediat rics (0 to 5 Years) and At-Risk Patients (6 to 64 Years) Aged Out No longer eligi ble based on patient's age to complete this topic RSV Immunization Patients Un eduar 20 months Aged Out No longer eligible b ased on patient's age to complete this topic Varicella Vaccines Aged Out No longer eligible based on patient's age to complete this topic Procedures Procedure Name Priority Date/Time Associated Diagnosis Comments HEPATITIS C SCREENING Routine 09/07/2015 LIPID PANEL Routine 04/10/2015 COLONOSCOPY Routine 12/22/2014 HIV SCREENING Routine 02/23/2004 from Last 3 Months or Most Recently Relevant to Health Maintenance Results * Hepatitis C Screening (09/07/2015) [facility] Hepatitis C Screening ABSTRACTED [facility] Provider HEALTH MAINTENANCE Final Result * (ABNORMAL) Lipid panel (04/10/2015) [facility] LDL/HDL Ratio 5(A) 0 - 4 Triglycerides 185(A) 0 - 150 mg/dL Cholesterol 184 0 - 200 mg/dL HDL 35(A) >=40 mg/dL LDL Cholesterol 112(A) 0 - 100 mg/dL Blood Venous blood specimen / Unknown [facility] Provider LAB BLOOD ORDERABLES Viridiana l Result * Colonoscopy (12/22/2014) [facility] Colonoscopy no interpretation , abstracted Anatomical Region Laterality Modality Other [facility] Provider HEALTH MAINTENANCE Final Result * HIV Screening (02/23/2004) [facility] HIV Screening ABSTRACTED [facility] Provider HEALTH MAINTENANCE Final Result from Last 3 Months or Most Recently Relevant to Health Maintenance Care Teams Lubrication Servicer Relationship Specialty Start Date End Date Barrie Pink MD [address] [place] [id number] PCP - General Internal Medicine 08/11/14
--- OUTSIDE RECORDS SUMMARY | 2024-08-27 15:41 | XMS_ITS | Encounter Summary ---
Author Organization [facility] Address [address] [place] [address] Care Team Providers Care Hospitality Intern Name Role Phone Kala Rizzo BOTTLE CLEANER Primary Care Provider [phone] Encounter Details Date Type Department Care Team ([facility] st Contact Info) Description 07/03/2024 Orders Only [facility] MEDICINE [address] [place] [address] Provider, MD Valerie Social History Tobacco Use Types Packs/Day Years [...] is your housing situation today? I have lceo swift 06/19/[address] you [...] on file documented as of this encounter Procedures Procedure Name Priority Date/Time Associated Diagnosis Comments HM COLONOSCOPY Routine 07/02/2024 2:27 PM EST documented in this encounter Results * Hm Colonoscopy (07/02/2024 2:27 PM EST) us Historical Provider HEALTH MAINTENANCE Final Result documented in this encounter Visit Diagnoses Not on filedocumented in this encounter Additional Health Concerns Assessment Noted Time PHQ-9 Depression Total Score: 0 01/26/20 24 9:15 AM EDT documented as of this encounter Care Teams Hospitality Intern Relationship Specialty Start Date End Date Kala Rizzo FNP [address] [place] [id number] PCP - General Family Medicine 10/22/21 documented as of this encounter
--- OUTSIDE RECORDS SUMMARY | 2024-08-27 15:41 | XMS_ITS | Encounter Summary ---
Author Organization [facility] Address [address] [place] [address] [address] [place] [address] Care Team Providers Care Seater Assembler Name Role Phone [facility] Primary Care Provider [phone] Reason for Visit * Reason Comments Med Refill Encounter Details Date Type Department Care Team (Late st Contact Info) Description 08/29/2022 Refill [facility] MED[facility]INE [address] [place], [place] [phone] [facility] [address], [place] [phone] Type 2 diabetes mellitus without complication, without long-term current use of insulin (CMS/HCC) Social History Tobacco Use Types Packs/Day Years Used Date Smoking Tobacco: Never Smokeless Tobacco: Never Alcohol Use Standard Drinks/Week Comments Never 0 (1 standard drink = 0.6 oz pur e alcohol) Depression Answer Date Recorded Patient Health Questionnaire-9 Score 0 04/29/2022 Depression Answer Date Recorded Patient Health Questionnaire-2 Score 0 04/29/2022 Sex and Gender Information Value Date Recorded [...] complication, without long-term current use of insulin (CMS/HCC) documented in this encounter Additional Health Concerns Assessment Noted Time PHQ-9 Depression Total Score: 0 04/29/20 22 2:01 PM EST documented as of this encounter Care Teams Seater Assembler Relationship Specialty Start Date End Date Kala Rizzo FNP [address] [place] [id number] PCP - General Family Medicine 10/22/21 documented as of this encounter
--- OUTSIDE RECORDS SUMMARY | 2024-08-27 15:41 | XMS_ITS | Clinical Summary ---
Author Organization [employer] Address [address] [facility] [address] [place] [address] Care Team Providers Care Collar Tailor Name Role Phone Kala Rizzo [facility] Primary Care Provider [phone] Allergies No known active allergies Medications Diclofenac Sodium (Voltaren) 1 % gel Apply 2 g topically every 6 (six) hours. 022 Active Lancets 28G misc Act mickie Blood Glucose Monitoring Suppl (FreeStyle Lite) device Inject under the skin if needed. Use as instructed Active Multiple Vitamin (MULTIVITAMIN ADULT PO) Take 1 tablet by mouth in the morning. Active empagliflozin (Jardiance) 10 MGIndications:Typ e 2 diabetes mellitus without complication, without long-term current use of insulin (CMS/[facility]) Take 1 tablet (10 mg) by mouth Once per day. 30 tablet 025 2025 Active tadalafil (Cialis) 5 MG tabletIndications :Erectile dysfunction, unspecified erectile dysfunction type Take 1 tablet (5 mg) by mouth 2 times daily. 180 tablet 025 2025 Active rosuvastatin (Crestor) 20 MG tabletIndications :Mixed hyperlipidemia TAKE 1 TABLET BY MOUTH ONCE DAILY IN THE MORNING 30 tablet 025 Active glucose blood (FREESTYLE TEST STRIPS) test stripIndications: Type 2 diabetes mellitus without complication, without long-term current use of insulin (CMS/HCC) USE TO TEST BLOOD SUGAR THREE TIMES A DAY 100 each 025 Active glucose blood (FREESTYLE TEST STRIPS) test stripIndications: Type 2 diabetes mellitus without complication, without long-term current use of insulin ([facility]) USE TO TEST BLOOD SUGAR THREE TIMES A DAY 100 each 3 024 2024 Discontinued(R eorder (will not trigger notification to Pharmacy)) Active Problems Problem Noted Date Diagnosed Date History of colon polyps 07/24/2023 Chronic low back pain 05/04/2022 Assessment & Plan (05/04/2022 1:44 PM EST): - Long hx of LBP r/t job requiring heavy lifting - Previously seen by chiropractor at [facility] - No numbness, tingling, loss of bowel/bladder function - No imaging on file Healthcare maintenance 04/29/2022 Overview (01/26/2024): C-Scope: Upcoming appt. 2024. Every 3 years-tubular adenoma. [facility] PSA:.41 06/2023 Vision Exam: Referred 07/2023 Dental Care: UTD Immunizations: UTD Assessment & Plan (07/24/2023 9:47 PM EDT): Referral to GI for repeat CRC screening Dental referral Vision referral Accepts updated COVID vaccine Assessment & Plan (05/04/2022 1:51 PM EST): C-Scope: 03/2021 at [facility], polpys repeat due 3-5 years PSA: Ordered today HCV Screen: Neg 2020 HIV Screen: Neg 2020 STI Screening: Declines Vision Exam: 05/2021 [facility] Dental Care: Will establish at [facility] Immunizations: Needs shingles in pharmacy. Otherwise UTD Type 2 diabetes mellitus wit hout complication, without long-term current use of insulin 04/29/2022 Overview (07/24/2023): Metformin monotherapy Foot Exam: Complete at follow up Eye Exam: Referral 07/2023 ASCVD: Calculate pending updated labs Statin: Yes ASA: No GEOVANI/ARB: No Encouraged regular aerobic exercise for improved glycemic control Encouraged daily foot checks Encouraged lean protein snacks and to avoid foods high in sugar and simple carbohydrates Treatment Goals: A1c goal: <7% FBG goal: <130 2 hour post prandial goal: <180 Assessment & Plan (07/24/2023 9:49 PM EDT): Lab Results Component Value Date HGBA1C 8.0 (H) 06/30/2023 RESTART metformin 500mg XR-->increase to b.I.d if tolerating well Referral to 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 BMP: Ordered today Microalbumin: Ordered today Foot Exam: 01/2022, Risk 0 Eye Exam: [facility] 05/2021 Lipid panel: Ordered today ASCVD: Calculate pending updated labs Statin: No ASA: No GEOVANI/ARB: No Encouraged regular aerobic exercise for improved glycemic control Encouraged daily foot checks Encouraged lean protein snacks and to avoid foods high in sugar and simple carbohydrates Treatment Goals: A1c goal: <7% FBG goal: <130 2 hour post prandial goal: <180 Mixed hyperlipidemia 04/19/2022 Overview (07/24/2023): Rosuvastatin 20mg daily Assessment & Plan (05/04/2022 1:41 PM EST): Previously on rosuvastatin, reports discontinued d/t improvement in cholesterol Bilateral inguinal hernia 09/04/2014 Resolved Problems Problem Noted Date Diagnosed Date Resolved Date Uncontrolled type 2 diabetes mellitus with hyperglycemia 04/19/2022 04/29/2022 Encounters Date Type Department Care Team Description 08/09/[address] [facility] [address] [place] [address] SoKala ascencio [facility] Type 2 diabetes mellitus without complication, without long-term current use of insulin (CMS/HCC) 07/20/[address] [facility] [address] [place] [address] Kala Rizzo FNP Mixed hyperlipidemia 07/15/2024 9:45 AM EST Office Visit [facility] [address] [place] [address] Kala Rizzo [facility] Type 2 diabetes mellitus without complication, without long-term current use of insulin (CMS/[facility]) (Primary Dx); Erectile dysfunction, unspecified erectile dysfunction type; Chronic left shoulder pain; Dietary counseling; Exercise counseling; Encounter for immunization 07/14/2024 Travel 07/03/2024 Orders Only [address] [address] ProviderValerie MD 07/02/2024 Orders Only GENERIC EXTERNAL DATA DEPARTMENT Provider, Bryon External Data 06/29/2024 Refill [facility] [address] [place] [address] LeetsdaleKala [facility] 06/26/2024 Travel from Last 3 Months Immunizations Name Administration Dates Next Due Influenza injectable quadriv alent preservative free 04/29/2022,05/22/2020 Influenza, seasonal, injecta ble, preservative free 01/26/2024 Moderna Covid-19 Vaccine 12+ 05/03/2021,09/19/19 21,08/21/2020 Pfizer Covid-19 Vaccine 12+ 07/15/2024, Pfizer Covid-19 Vaccine 12+ Bivalent 04/29/2022 Pneumococcal Conjugate PCV 20 07/15/2024 Tdap 05/22/2020,11/05/2014 Zoster, Recombinant 04/29/2022,01/24/2022 Family History Medical History Relation Name Comments cardiac di Brother Lung cancer Mother cardiac disease Mother Colon cancer Neg Hx Prostate cancer Neg Hx Relation Name Status Comments Brother Mother Social History Tobacco Use Types Packs/Day Years Used Date Smoking Tobacco: Never Smokeless Tobacco: Never Tobacco Cessation:Counseling Given: Not Answered Alcohol Use Standard Drinks/Week Comments Never 0 (1 standard drink = 0.6 oz pur e alcohol) Depression Answer Date Recorded Patient Health Questionnaire-9 Score 0 07/15/2024 Patient Health Questionnaire-9 Score 0 07/15/2024 Last PHQ-9: Questionnaire Data Not on file 0 07/15/2024 Housing Stability Answer Date Recorded What is [...] t he electric, gas, oil or water [employer] threatened to shut off services in your home? No 06/19/2023 Depression Answer Date Recorded Patient Health Questionnaire-2 Score 0 07/15/2024 Internet Access Answer Date Recorded Internet Access Q1 Yes 01/26/2024 Internet Access Q2 Not on file 01/26/2024 Sex and Gender Information Value Date Recorded Sex Assigned at Male 03/14/2022 10:37 AM EDT Legal Sex Male 10:37 AM EDT Gender Identity Male 03/14/2022 10:37 AM EDT Sexual Orientation Straight 03/14/2022 10 :37 AM EDT Last Filed Vital Signs Vital Sign Reading Time Taken Comments Blood Pressure 130/76 07/15/2024 9:31 AM EST Pulse 70 07/15/2024 9:31 AM EST Temperature 36.4 ??C (97.6 ??F) 07/15/2024 9:31 AM ES T Respiratory Rate 20 07/15/2024 9:31 AM EST Oxygen Saturation 99% 07/15/2024 9:31 AM EST Inhaled Oxygen Concentration - - Weight 96.7 kg (213 lb 3.2 oz) 07/15/2024 9:31 A M EST Height 190.5 cm (6' 3 ) 07/15/2024 9:31 AM EST Body Mass Index 26.65 07/15/2024 9:31 AM EST Plan of Treatment Health Maintenance Due Date Last Done Comments CT Colonography 1965 FIT DNA/Cologuard 1965 FIT 1965 FOBT 1965 Sigmoidoscopy 1965 Diabetes: Urine Protein Screening 06/30/2024 06/30/2023, 06/03/2020 Lipid Panel 06/30/2024 06/30/2023, 05/16, 03/10/2020 Diabetes: Hemoglobin A1C 10/15/2024 025, 01/26/2024, 10/25/2023, Additional history exists Alcohol/Substance Use Screening 10/24/2024 10/25/2023 Diabetes: Foot Exam 10/24/2024 10/25/2023, 10/25/2023, 10/25/2023, Additional history exists SDOH Screening 01/25/2025 01/26/2024 Depression Screening 07/15/2025 07/15/2024, 07/16/19 25 Tobacco Screening 07/15/2025 07/15/2024 Eye Exam 07/27/2025 07/28/2023, 05/2023, 05/15/2021 Colonoscopy 07/02/2027 07/02/2024, 03/26/2021 Colorectal Cancer Screening 07/02/2027 DTaP/Tdap/Td Vaccines (3 - Td or Tdap) 05/22/2030 05/22/2020, 11/05/2014 RSV Patients and Patients Aged 60 years or older (1 - 1-dose 75+ series) 2039 HIV Screening Discontinued 03/10/2020 Hepatitis C Screening Discontinued 03/10/2020 Zoster Vaccines Completed 04/29/2022, 01/24/2022 Influenza Vaccine Completed 01/26/2024, , 05/22/2020 COVID-19 Vaccine Completed 07/15/2024, 12/2023, 04/29/2022, Additional history exists Pneumococcal Vaccine: 50+ Years Completed 07/15/2024 HIB Vaccines Aged Out No longer eligi ble based on patient's age to complete this topic HPV Vaccines Aged Out No longer eligi ble based on patient's age to complete this topic Hepatitis A Vaccines Aged Out No long er eligible based on patient's age to complete this topic Hepatitis B Vaccines Discontinued IPV Vaccines Aged Out No longer eligi ble based on patient's age to complete this topic Meningococcal Vaccine Aged Out No royal radha eligible based on patient's age to complete this topic RSV under 20 months Aged Out No longe r eligible based on patient's age to complete this topic Rotavirus Vaccines Aged Out No longer eligible based on patient's age to complete this topic Procedures Procedure Name Priority Date/Time Associated Diagnosis Comments POCT GLUCOSE Routine 07/15/2024 9:33 AM EST Type 2 diabetes mellitus without complication, without long-term current use of insulin (CMS/HCC) POCT GLYCATED HEMOGLOBIN, TOTAL Routine 07/15/2024 9:33 AM EST Type 2 diabetes mellitus without complication, without long-term current use of insulin (CMS/HCC) HM COLONOSCOPY Routine 07/02/2024 2:27 PM EST HEMATOXYLIN AND EOSIN STAIN Routine 07/02/2024 10:40 AM EST GLUCOSE, WHOLE BLOOD Routine 07/02/2024 9:20 AM EST AMB REFERRAL TO OPTOMETRY Routine 07/28/2023 Type 2 diabetes mellitus without complication, without long-term current use of insulin (CMS/HCC) ALBUMIN, RANDOM URINE W/CREATININE Routine 06/30/2023 1:54 PM EST Type 2 diabetes mellitus with hyperglycemia, without long-term current use of insulin (CMS/HCC) LIPID PANEL, STANDARD Routine 06/30/2023 1:48 PM EST Type 2 diabetes mellitus with hyperglycemia, without long-term current use of insulin (CMS/HCC) ZZZ HISTORICAL HEPATITIS PANEL, ACUTE W/REFLEX TO CONFIRMATION Routine 03/10/2020 2:16 PM EDT HIV 1/2 ANTIGEN/ANTIBODY, FOURTH GENERATION W/RFL Routine 03/10/2020 2:16 PM EDT from Last 3 Months or Most Recently Relevant to Health Maintenance Results * (ABNORMAL) POCT HGB A1C (07/15/2024 9:33 AM EST) [facility] Hemoglobin A1C 7.1(A) 4.0 - 6.0 % QC Media Lot # [id number] Lot# Expiration Date Blood 07/15/2024 9:33 AM EST [facility] POINT OF CARE TEST ENTER/EDIT ORDERABLES Final Result * (ABNORMAL) POCT Glucose (07/15/2024 9:33 AM EST) [facility] Glucose Blood, POC 222(A) 60 - 200 mg/dL QC Media Lot # [id number] Lot# Expiration Date 025 Blood Capillary blood specimen / Unknown 07/15/2024 9:33 AM EST [facility] POINT OF CARE TEST ENTER/EDIT ORDERABLES Final Result * Hm Colonoscopy (07/02/2024 2:27 PM EST) [facility] Provider HEALTH MAINTENANCE Final Result * Hematoxylin and Eosin Stain (07/02/2024 10:40 AM EST) 07/02/2024 10:4 0 AM EST 07/02/2024 12:04 PM EST Narrative [facility] - 07/04/2024 9:08 AM EST ----- ------- Name: Ascencion Metcalf ?Age/Sex: 59/M ? : 1965 Unit#: [id number] ?? Attend Dr: Raul Xie MD ?Re07/02/24 ?Status: DEP SDC ? Location: HO.SSS ?Disch: ? ----- ------- SPEC : [id number] ?RECD: 07/02/24-1204 ? STATUS: ??SOUT ? REQ NUM: [id number] ? MICHELLE: 07/02/24-1040 ? SUBM DR: Raul Xie MD ? ENTERED: ??07/02/24-1218 ?SP TYPE: Surgical ? OTHR DR: Kala Rizzo LAY OUT TECHNICIAN ? ORDERED: ??HE Stain/6, Gross Micro L4/2 ? Diagnosis ?? A. ??Colon, ascending, polyp: ??Colonic mucosa with prominent reactive lymphoid follicles; ?? no adenomatous dysplasia seen. ? B. ??Colon, sigmoid, polyp: ??Tubular adenoma; negative for high-grade dysplasia and ?? carcinoma. ?Clinical History Pre-Op Dx: ??Screening Post-Op Dx: Colon polyps, internal hemorrhoids ?Microscopic Description Multiple microscopic sections reviewed. ? Material Received ?? A. Ascending colon polyp ?? B. Sigmoid colon polyp ? Gross Description Received in two parts. Part A: ??Received in formalin labeled ascending colon polyp? are 2 ludwig- pink irregular tissue fragments each measuring 0.3 cm, submitted in toto in a cassette labeled A. Part B: ??Received in formalin labeled sigmoid colon polyp? is a 0.35 cm hyperemic and congested, pink-red papular tissue fragment, submitted in toto in a cassette labeled B. CEDS Copies To: ?? Raul Xie MD ?? [facility] ?? [address] ?? [place] [address] ?? [phone] ? CONTINUED ON NEXT PAGE ----- ------- Name: Ascencion Metcalf ?Age/Sex: 59/M ? : 1965 Unit#: [id number] ?? Attend Dr: Raul Xie MD ?Re07/02/24 ?Status: DEP SDC ? Location: HO.SSS ?Disch: ? ----- ------- SPEC : [id number] ?RECD: 07/02/24-4 ? STATUS: ??SOUT ? REQ NUM: [id number] ? MICHELLE: 07/02/24-8100 ? SUBM DR: Raul Xie MD ? ENTERED: ??07/02/24-1215 ?SP TYPE: Surgical ? OTHR : Kala Rizzo LAY OUT TECHNICIAN ? ORDERED: ??HE Stain/6, Gross Micro L4/2 ? Copies To: ??(Continued) ?? Kala Rizzo LAY OUT TECHNICIAN ?? [address] [facility] ?? [place] [address] ?? [phone] ----- ------- Signed (signature on file) Irene Burleson 07/04/24 0908 ? ----- ------- ? END OF REPORT ? Generic External Data Provider LAB BLOOD ORDERAB LES Final Result Performing Organization Address [facility] Co de Phone Number [facility] [address] [place] [address] [phone] * (ABNORMAL) Glucose, Whole Blood (07/02/2024 9:20 AM EST) Glucose, Whole Blood 124(H) 60 - 115 mg/dL [facility] Comment:METER #: [id number] 07/02/2024 9:20 AM EST 07/02/2024 9:23 AM EST Generic External Data Provider LAB BLOOD ORDERAB LES Final Result Performing Organization Address [facility] Co de Phone Number [facility] [address] [place] [address] [phone] * Referral to Optometry (07/28/2023) [facility] OUTPATIENT REFERRAL ORDERABLE S Final Result * Albumin, Random Urine W/Creatinine (06/30/2023 1:54 PM EST) Creatinine, Urine 100.79 mg/dL [facility] Microalbumin Urine <5.0 mg/L [facility] Microalbum Creatinine Ratio Ur TNP <30 ug/mg cr [facility] Comment:Unable to calculate albumin/creatinine ratio due to lowmicroalbumin or creatinine result. Urine 06/30/2023 1:54 PM EST 06/30/2023 4:20 PM EST [facility] LAB URINE ORDERABLES Final Re sult Performing Organization Address [facility] de Phone Number [facility] [address] [place] [phone] * (ABNORMAL) Lipid Panel, Standard (06/30/2023 1:48 PM EST) Triglycerides 340(H) <150 mg/dL [facility] Comment:Desirable Triglyceri de: less than 150 mg/dLBorderline High Triglyceride 150-199 mg/dLHigh Triglyceride: 200-499 mg/dLVery High Triglyceride: greater than or equal to 5OO mg/dL Cholesterol 225(H) <200 mg/dL [facility] Comment:Desirable Cholestero l: less than 200 mg/dLBorderline High Cholesterol: 200-239 mg/dLHigh Cholesterol: greater than 239 mg/dL LDL Cholesterol Calculated 121(H) <100 mg/dL [facility] Comment:Desirable LDL: less than 100 mg/dLNear Optimal/Above Optimal LDL: 110- 129 mg/dLBorderline High LDL: 130-159 mg/dLHigh LDL: 160-189 mg/dLVery High LDL: greater than or equal to 190 mg/dL HDL Cholesterol 36(L) >40 mg/dL [facility] Comment:Desirable HDL: great er than 40 mg/dL Note: This HDL assay may give artificially low results in patients with liver disease. Blood Venous blood specimen / Unknown 06/30/2023 1:48 PM EST 06/30/2023 4:17 PM EST [facility] LAB BLOOD ORDERABLES Final Re sult Performing Organization Address [facility]/State/ZIP Co de Phone Number [facility] [address] [place] [phone] * HEPATITIS PANEL, ACUTE W/REFLEX TO CONFIRMATION (03/10/2020 2:16 PM EDT) HEPATITIS B CORE ANTIBODY (IGM) NON-REACT [facility] NON-REACT [facility] HEPATITIS B SURFACE ANTIGEN NON-REACT [facility] NON-[facility]ACT [facility] HEPATITIS A IGM NON-REACT [facility] NON-REACT [facility] Comment: ?? For additional information, please refer to ?? http://Peak.Moneero/faq/HMW919 ?? (This link is being provided for informational/ educational purposes only.) ?? HEPATITIS C ANTIBODY NON-REACT [facility] NON-REACT [facility] INDEX 0.01 <1.00 [facility] Comment: ?? HCV antibody was non-reactive. There is no laboratory ?? evidence of HCV infection. ?? In most cases, no further action is required. However, if recent HCV exposure is suspected, a test for HCV RNA (test code 34729) is suggested. ?? For additional information please refer to http://Echograph/faq/MOB12e8 (This link is being provided for informational/ educational purposes only.) ?? HEPATITIS B CORE ANTIBODY (IGM) NON-REACT [facility] NON-REACT [facility] HEPATITIS B CORE ANTIBODY (IGM) NON-REACT [facility] NON-[facility]ACT [facility] HEPATITIS B CORE ANTIBODY (IGM) NON-REACT [facility] NON-[facility]ACT [facility] HEPATITIS C ANTIBODY NON-REACT [facility] NON-REACT [facility] INDEX 0.01 <1.00 [facility] Comment: ?? HCV antibody was non-reactive. There is no laboratory ?? evidence of HCV infection. ?? In most cases, no further action is required. However, if recent HCV exposure is suspected, a test for HCV RNA (test code 12254) is suggested. ?? For additional information please refer to http://Echograph/faq/DBR03e6 (This link is being provided for informational/ educational purposes only.) ?? HEPATITIS A IGM NON-REACT [facility] NON-REACT [facility] Comment: ?? For additional information, please refer to ?? http://Echograph/faq/UFP068 ?? (This link is being provided for informational/ educational purposes only.) ?? HEPATITIS A IGM NON-REACT [facility] NON-[facility]ACT [facility] Comment: ?? For additional information, please refer to ?? http://Echograph/faq/YVI480 ?? (This link is being provided for informational/ educational purposes only.) ?? HEPATITIS B SURFACE ANTIGEN NON-REACT [facility] NON-REACT [facility] HEPATITIS B SURFACE ANTIGEN NON-REACT [facility] NON-[facility]ACT [facility] HEPATITIS C ANTIBODY NON-REACT [facility] NON-REACT [facility] INDEX 0.01 <1.00 [facility] Comment: ?? HCV antibody was non-reactive. There is no laboratory ?? evidence of HCV infection. ?? In most cases, no further action is required. However, if recent HCV exposure is suspected, a test for HCV RNA (test code 54919) is suggested. ?? For additional information please refer to http://Echograph/faq/MBC73y7 (This link is being provided for informational/ educational purposes only.) ?? HEPATITIS A IGM NON-REACT [facility] NON-REACT [facility] Comment: ?? For additional information, please refer to ?? http://Echograph/faq/PUC668 ?? (This link is being provided for informational/ educational purposes only.) ?? HEPATITIS B SURFACE ANTIGEN NON-REACT [facility] NON-[facility]ACT [facility] HEPATITIS C ANTIBODY NON-REACT [facility] NON-REACT [facility] INDEX 0.01 <1.00 [facility] Comment: ?? HCV antibody was non-reactive. There is no laboratory ?? evidence of HCV infection. ?? In most cases, no further action is required. However, if recent HCV exposure is suspected, a test for HCV RNA (test code 22619) is suggested. ?? For additional information please refer to http://Echograph/faq/RDT40v0 (This link is being provided for informational/ educational purposes only.) ?? 03/10/2020 2:16 PM EDT Micahantonia Culverneal Bentley LAY OUT TECHNICIAN HISTORICAL/NON ORDERA BLE LABS Final Result [facility] [address] [place] [address], * HIV 1/2 ANTIGEN/ANTIBODY,FOURTH GENERATION W/RFL (03/10/2020 2:16 PM EDT) HIV-1/2 ANTIGEN AND ANTIBODIES, 4TH GENERATION W/ REFLEX NON-REACT [facility] NON-REACT [facility] Comment: HIV-1 antigen and HIV-1/HIV-2 antibodies were not detected. There is no laboratory evidence of HIV infection. ?? PLEASE NOTE: This information has been disclosed to you from records whose confidentiality may be protected by state law. ??If your state requires such protection, then the state law prohibits you from making any further disclosure of the information without the specific written consent of the person to whom it pertains, or as otherwise permitted by law. A general authorization for the release of medical or other information is NOT sufficient for this purpose. ? For additional information please refer to http://Peak.Moneero/faq/SEU816 (This link is being provided for informational/ educational purposes only.) ? The performance of this assay has not been clinically validated in patients less than 2 years old. ?? HIV-1/2 ANTIGEN AND ANTIBODIES, 4TH GENERATION W/ REFLEX NON-REACT [facility] NON-REACT [facility] Comment: HIV-1 antigen and HIV-1/HIV-2 antibodies were not detected. There is no laboratory evidence of HIV infection. ?? PLEASE NOTE: This information has been disclosed to you from records whose confidentiality may be protected by state law. ??If your state requires such protection, then the state law prohibits you from making any further disclosure of the information without the specific written consent of the person to whom it pertains, or as otherwise permitted by law. A general authorization for the release of medical or other information is NOT sufficient for this purpose. ? For additional information please refer to http://Peak.Moneero/faq/AMR226 (This link is being provided for informational/ educational purposes only.) ? The performance of this assay has not been clinically validated in patients less than 2 years old. ?? HIV-1/2 ANTIGEN AND ANTIBODIES, 4TH GENERATION W/ REFLEX NON-REACT [facility] NON-REACT [facility] Comment: HIV-1 antigen and HIV-1/HIV-2 antibodies were not detected. There is no laboratory evidence of HIV infection. ?? PLEASE NOTE: This information has been disclosed to you from records whose confidentiality may be protected by state law. ??If your state requires such protection, then the state law prohibits you from making any further disclosure of the information without the specific written consent of the person to whom it pertains, or as otherwise permitted by law. A general authorization for the release of medical or other information is NOT sufficient for this purpose. ? For additional information please refer to http://Echograph/faq/AML791 (This link is being provided for informational/ educational purposes only.) ? The performance of this assay has not been clinically validated in patients less than 2 years old. ?? HIV-1/2 ANTIGEN AND ANTIBODIES, 4TH GENERATION W/ REFLEX NON-[facility]ACT [facility] Comment: HIV-1 antigen and HIV-1/HIV-2 antibodies were not detected. There is no laboratory evidence of HIV infection. ?? PLEASE NOTE: This information has been disclosed to you from records whose confidentiality may be protected by state law. ??If your state requires such protection, then the state law prohibits you from making any further disclosure of the information without the specific written consent of the person to whom it pertains, or as otherwise permitted by law. A general authorization for the release of medical or other information is NOT sufficient for this purpose. ? For additional information please refer to http://Peak.Moneero/faq/LJE895 (This link is being provided for informational/ educational purposes only.) ? The performance of this assay has not been clinically validated in patients less than 2 years old. ?? HIV-1/2 ANTIGEN AND ANTIBODIES, 4TH GENERATION W/ REFLEX NON-REACT [facility] Comment: HIV-1 antigen and HIV-1/HIV-2 antibodies were not detected. There is no laboratory evidence of HIV infection. ?? PLEASE NOTE: This information has been disclosed to you from records whose confidentiality may be protected by state law. ??If your state requires such protection, then the state law prohibits you from making any further disclosure of the information without the specific written consent of the person to whom it pertains, or as otherwise permitted by law. A general authorization for the release of medical or other information is NOT sufficient for this purpose. ? For additional information please refer to http://education.Moneero/faq/SUP040 (This link is being provided for informational/ educational purposes only.) ? The performance of this assay has not been clinically validated in patients less than 2 years old. ?? 03/10/2020 2:16 PM EDT Micah Bentley LAY OUT TECHNICIAN LAB BLOOD ORDERABLES Final Result Performing Organization Address City/State/[facility] Phone Number [facility] Anywhere [address] from Last 3 Months or Most Recently Relevant to Health Maintenance Insurance [facility] Care Teams Collar Tailor Relationship Specialty Start Date End Date LeetsdaleKala FNP [address] [place] [id number] PCP - General Family Medicine 10/22/21
--- OUTSIDE RECORDS SUMMARY | 2024-08-27 15:41 | XMS_ITS | Encounter Summary ---
Author Organization [employer] Address [address] 7t [place] [address] Care Team Providers Care Driver Medic Name Role Phone Kala Rizzo [facility] Primary Care Provider [phone] Encounter Details Date Type Department Care Team ([facility] st Contact Info) Description 03/31/2023 Abstract [facility] MEDICINE [address] [place] [address] Lori Mccray Social History Tobacco Use Types Packs/Day Years Used Date Smoking Tobacco: Never Smokeless Tobacco: Never Alcohol Use Standard Drinks/Week Comments Never 0 (1 standard drink = 0.6 oz pur e alcohol) Depression Answer Date Recorded Patient Health Questionnaire-9 Score 0 04/29/2022 Housing Stability Answer Date Recorded What is your housing situation today? I have [employer] 03/20/[address] you li ve. Do you have problems with any of the following? None of the above 03/20/2023 Food Insecurity Answer Date Recorded Within the past 12 months, y ou worried that your food would run out before you got money to buy more: Never True 03/20/2023 Within the past 12 months,th e food you bought just didn't last and you didn't have enough money to get more: Never True 10/2022 Transportation Answer Date Recorded In the past 12 months, has l ack of transportation kept you from medical appts, meetings, work or from getting things needed for daily living? No 03/20/2023 Utilities Answer Date Recorded In the past 12 months, has t he electric, gas, oil or water company threatened to shut off services in your home? No 03/20/2023 Depression Answer Date Recorded Patient Health Questionnaire-2 [...] Procedure Name Priority Date/Time Associated Diagnosis Comments COLONOSCOPY Routine 03/26/2021 documented in this encounter Results * Hm Colonoscopy (03/26/2021) Colonoscopy Normal Normal Narrative Lori Mccray - 03/26/2021 Repeat in 3 years us Historical Provider HEALTH MAINTENANCE Final Result documented in this encounter Visit Diagnoses Not on filedocumented in this encounter Additional Health Concerns Assessment Noted Time PHQ-9 Depression Total Score: 0 04/29/20 22 2:01 PM EST documented as of this encounter Care Teams Driver Medic Relationship Specialty Start Date End Date Kala Rizzo FNP [address] [place] [id number] PCP - General Family Medicine 10/22/21 documented as of this encounter
== END 2024-08-27 13:17 | disposition home or self-care (01) ==
LOC: HO.HOS 12:51
PROVIDERS: PCP Registered Nurse
DX: M67.441 Ganglion, right hand (principal)
CPT/HCPCS: 99024

== ENCOUNTER → 2024-08-27 12:51 | Outpatient (BNVA) | payer OTHER, SELFPAY | PROVIDERS: PCP Registered Nurse | DX: Z87.39 Personal history of other diseases of the musculoskeletal system and connective tissue (principal); Z98.890 Other specified postprocedural states | CPT/HCPCS: 99212 ==

== ENCOUNTER 2024-09-06 10:32 | Outpatient (AMB) | payer OTHER, SELFPAY ==
[2024-09-06 10:55] VITALS: BMI 25.4
--- NOTE | 2024-09-06 10:55 | A.OFFVIS_ITS ---
Vital Signs 09/06/24 10:55 Height 6 ft 3 in Weight 203 lb BMI 25.4 Intake Visit Reasons: PO RT RF retinacular cyst exc 08/12/24 AR Intake Note: Ascencion is a 59 year old right hand dominant male who presents today for a post operative visit and wound check s/p right ring finger excision of retinacular cyst DOS: 08/12/[address] Lucy Guidry. On 08/27/24 patient was prescribed a one-week course of Augmentin states he has completed his course of ABX. Allergies No Known Allergies Allergy (Verified 09/06/24 10:56) HPI HPI PO RT RF retinacular cyst exc 08/12/24 AR: Details: Ascencion is a 59 year old right hand dominant male who presents today for a post operative visit and wound check s/p right ring finger excision of retinacular cyst DOS: 08/12/[address] Lucy Guidry. On 08/27/24 patient was prescribed a one-week course of Augmentin states he has completed his course of ABX. 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 Neuro: Normal sensation of the tips of all digits of the right hand at this time Vascular: Cap refill brisk Pain: Xiam-te-qsdrsazq tenderness to palpation of the right ring finger at the level of the incision ROM: Patient is able to make a closed fist and extend all digits of the right hand fully and without difficulty Skin: Well-approximated incision site noted on the volar aspect of the right ring finger at the level of the proximal phalanx General: Erythema has resolved Psych: Appears grossly normal Affect normal Attitude cooperative Assessment & Plan Assessment & Plan (1) Ganglion cyst of finger of right hand: Comment: RF Code(s): M67.441 - Ganglion, right hand Category: Medical Plan 1. Status post right ring finger retinacular cyst excision DOS 08/12/2024 Patient appears to be recovering fairly well postoperatively Patient was educated about the typical recovery course No further antibiotics or acute follow-up for postoperative care needed Patient was amenable to this plan Coding Level of Care Code Global (77208) Diagnoses Ganglion cyst of finger of right hand M67.441
--- OUTSIDE RECORDS SUMMARY | 2024-09-06 11:07 | XMS_ITS | Clinical Summary ---
Author Organization [employer] [facility] Address [address] [place] [address] Care Team Providers Care Cotton Bag Clipper Name Role Phone Barrie Pink MD Primary Care Provider [phone] Allergies No known active allergies Medications multivitamin/ir [...] Maintenance Results * Hepatitis C Screening (09/07/2015) [facility] Hepatitis C Screening ABSTRACTED [facility] Provider HEALTH MAINTENANCE Final Result * (ABNORMAL) Lipid panel (04/10/2015) [facility] LDL/HDL Ratio 5(A) 0 - 4 Triglycerides 185(A) 0 - 150 mg/dL Cholesterol 184 0 - 200 mg/dL HDL 35(A) >=40 mg/dL LDL Cholesterol 112(A) 0 - 100 mg/dL Blood Venous blood specimen / Unknown [facility] Provider LAB BLOOD ORDERABLES Viridiana l Result * Colonoscopy (12/22/2014) [facility] Colonoscopy no interpretation , abstracted Anatomical Region Laterality Modality Other [facility] Provider HEALTH MAINTENANCE Final Result * HIV Screening (02/23/2004) [facility] HIV Screening ABSTRACTED [facility] Provider HEALTH MAINTENANCE Final Result from Last 3 Months or Most Recently Relevant to Health Maintenance Care Teams Cotton Bag Clipper Relationship Specialty Start Date End Date Barrie Pink MD [address] [place] [phone] PCP - General Internal Medicine 08/11/14
== END 2024-09-06 11:01 | disposition home or self-care (01) ==
LOC: HO.HOS 10:32
PROVIDERS: PCP Registered Nurse
DX: M67.441 Ganglion, right hand (principal)
CPT/HCPCS: 99024

== ENCOUNTER → 2024-09-06 10:32 | Outpatient (BNVA) | payer OTHER, SELFPAY | PROVIDERS: PCP Registered Nurse | DX: M67.441 Ganglion, right hand (principal) | CPT/HCPCS: 99212 ==

== ENCOUNTER 2024-10-29 09:39 | Outpatient (REF) | payer OTHER, SELFPAY ==
--- OUTSIDE RECORDS SUMMARY | 2024-10-29 10:38 | XMS_ITS | Encounter Summary ---
Author Organization [employer] Address [address] [facility] 7 [place] [address] Care Team Providers Care Car Detailer Name Role Phone [facility] Primary Care Provider [phone] Reason for Visit * Reason Onset Date Comments Med Refill 06/29/2024 Encounter Details Date Type Department Care Team (Late st Contact Info) Description 06/29/2024 Refill [facility] MEDICINE [address] [place], [place] [phone] [facility] [address] [place], [place] [phone] Social History Tobacco Use Types Packs/Day Years [...] documented as of this encounter Care Teams Car Detailer Relationship Specialty Start Date End Date Kala Rizzo FNP [address] [place] [phone] PCP - General Family Medicine 10/22/21 documented as of this encounter
[2024-10-29 12:12] LABS: Estimated Average Glucose 171 mg/dL; Hemoglobin A1c % 7.6 % (<6.0)
[2024-10-29 12:19] LABS: Anion Gap 12 (12-20); Blood Urea Nitrogen 19 mg/dL (9-16); Calcium 10.1 mg/dL (8.4-10.2); Carbon Dioxide 29 mmol/L (22-29); Chloride 106 mmol/L (96-108); Cholesterol 174 mg/dL (<200); Estimated Glomerular Filt Rate > 60; Glucose Random 135 mg/dL (60-115); HDL Cholesterol 51 mg/dL (>40); LDL Cholesterol Calculated 105 mg/dL (<100); Potassium 4.4 mmol/L (3.3-5.1); Sodium 143 mmol/L (135-145); Triglycerides 94 mg/dL (<150)
[2024-10-29 12:30] LABS: Creatinine Urine 70.46 mg/dL; Microalbumin Urine < 5.0 mg/L
[2024-11-01 05:43] LABS: TS Negative Control Passed; TS Panel A 0; TS Panel B 0; TS Positive Control Passed; TSpotTB Negative (Negative)
[2024-11-06 13:37] LABS: Testosterone, Free 35.5 pg/mL (35.0-155.0); Testosterone, Total 205 ng/dL (250-1100)
== END 2024-10-29 09:40 | disposition home or self-care (01) ==
LOC: HO.HHCL 09:39
PROVIDERS: PCP Registered Nurse; Referring Provider Nurse Practitioner Family; Visit Provider Registered Nurse
DX: E11.69 Type 2 diabetes mellitus with other specified complication (principal); N52.1 Erectile dysfunction due to diseases classified elsewhere
CPT/HCPCS: 36415; 80048; 80061; 82043; 82570; 83036; 84402; 84403; 86481

== ENCOUNTER 2024-12-18 07:19 | Outpatient (AMB) | payer OTHER, SELFPAY ==
--- NOTE | 2024-12-18 07:19 | MHC.OFFVIS ---
Intake Visit Reasons: follow up/labs(set) Intake Note: Patient presents for tele visit follow up on: erectile dysfunction, low libido, and testosterone lab results Testosterone: 205 Free Testosterone: 35.5 HgbA1c:7.6 Urology Medications: sildenafil and tadalafil Blood Thinner: none Reach Truck Operator Required: No Accompanied by: Self / Same As Patient Allergies No Known Allergies Allergy (Verified 12/18/24 07:59) Medication List - Last Reconciled 12/18/24 by OLIVE Naidu-JOSH empagliflozin (Jardiance) 10 mg PO DAILY rosuvastatin 20 mg PO QAM sildenafil (Viagra) 25 - 50 mg PO tadalafil (Cialis) 10 mg PO DAILY 90 days HPI Comments Details: Ascencion is a very pleasant 59-year-old male patient of Dr. Rizzo. He has a past medical history of hypercholesteremia and type 2 diabetes. He is being follow-up on today via telehealth for his low libido and hypogonadism. In discussion with the patient today he reports to be doing and feeling well. He reports compliance with daily dosing of tadalafil and feels this has been somewhat helpful however he does continue to experience issues with libido as well as his erections. He discusses continuing to work on his diabetes with portion control of his eating habits. 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 Recent testosterone results reviewed with the patient today. We did discussed further treatment options of low libido and hypogonadism in risks and benefits of these interventions. We discussed continuing lifestyle modifications to assist with erectile dysfunction. He does report episodes of urinary frequency however relates this to his Jardiance. He denies urinary urgency, incontinence, nocturia, hematuria, dysuria, foul smelling urine, changes to urinary stream, flank pain, fever, and or chills. He is happy with his current voiding parameters. Labs are as follows: PSA 07/08 0.4 Total testosterone 08/05 262, 01/05 262, 04/07 290, 11/06 205 Free testosterone 01/05 56.9. 04/07 67.0, 11/06 35.5 Discussed at length potential causes of low libido as well as lifestyle modifications to assist with low libido. He otherwise offers no other issues or concerns at this time. 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 Review of Systems Const All systems reviewed & are unremarkable except as noted in HPI and below Reports as per HPI Eyes Reports no additional complaints ENT Reports no additional complaints Card Reports as per HPI Resp Reports no additional complaints GI Denies abdominal pain and Denies nausea Musc Denies no additional complaints Neuro Reports no additional complaints Physical Exam Const General: cooperative Resp Effort & Inspection: able to speak in complete sentences Psych Attitude: cooperative Thought content: Normal thought content present Insight: Fair insight present (Psych) Judgement: Fair judgement present (Psych) Telehealth Telehealth Telehealth Platform: [employer] Location of provider rendering services: practice address Location of patient: address on file Patient Identification confirmed using: Name, : Yes Telehealth method: voice only Patient verbally consented to treatment: Yes Patient verbally consented to billing insurance company: Yes Patient informed of any privacy concerns related to visit: Yes Minutes spent on Phone/Video with Pt.: 20 Assessment & Plan Assessment & Plan (1) Hypogonadism in male: Code(s): E29.1 - Testicular hypofunction Category: Medical (2) Low libido: Code(s): R68.82 - Decreased libido Category: Medical Plan Recent labs reviewed with the patient today; as noted above. We did discussed further treatment options of hypogonadism and risks and benefits of these treatment options. Will obtain SHBG, FSH, estradiol, testosterone free and total, prolactin, LH, and PSA for further assessment evaluation. He does report noting urinary frequency however relates this to his Jardiance; will continue to monitor. We discussed importance of lifestyle modifications to assist with hypogonadism as well as low libido. We also discussed the importance of management and diabetes for improvement in overall health and well-being. Continue daily dosing of Cialis as discussed; refill provided Follow-up in 4-8 weeks with labs to be completed prior; or sooner with any issues, concerns, and or questions. Orders: Orders Sex Hormone Binding Globulin Today E29.1 - Testicular hypofunction Follicle Stimulating Hormone Today E29.1 - Testicular hypofunction Estrad Free (Tot Ultra + Free) Today E29.1 - Testicular hypofunction Testosterone, Free/Total Today E29.1 - Testicular hypofunction Prolactin Today E29.1 - Testicular hypofunction Lutenizing Hormone Today E29.1 - Testicular hypofunction Prostate Specific Antigen Today E29.1 - Testicular hypofunction Medications: New tadalafil (Cialis) [id number] [facility] [id number] Member [id number] 10 mg PO DAILY 90 tabs 1RF 90 days E29.1 - Testicular hypofunction Discontinued tadalafil (Cialis) [id number] [facility] [id number] Member [id number] Discontinued Reason: Doctor's Order 5 mg PO BID 90 days 180 tabs 2RF Patient Instructions: The patient had an opportunity to ask questions regarding the treatment plan. All questions were answered. Physical exam, labs, and imaging were discussed and reviewed in detail. As well as risks, benefits, and discussion of treatment choices. No major barriers to understanding were identified. The patient expressed understanding and agreement with the above treatment plan. The patient was made aware they should contact our office by phone for worsening of their current condition, the appearance of new symptoms, or with any questions or concerns. Compliance is encouraged with any medications and follow up testing that is ordered. It is a privilege to be allowed the opportunity to participate in? your urological care.? Again, if you have any questions or concerns If you have any questions or concerns please do not hesitate to contact me. The office is [phone]. This note is constructed using voice recognition software. While every effort has been made to ensure accuracy vocational rehabilitation technician errors may have been included. Yours sincerely, MARTIN Naidu Coding Level of Care Code Tele Est Pt Level 4 (55991) Diagnoses Hypogonadism in male E29.1 Low libido R68.82
--- OUTSIDE RECORDS SUMMARY | 2024-12-18 07:20 | XMS_ITS | Clinical Summary ---
Author Organization [employer] [facility] Address [address] [place] [address] Care Team Providers Care Audit Reviewer Name Role Phone Barrie Pink MD Primary Care Provider [phone] Allergies No known active allergies Medications multivitamin/ir [...] 12/22/2014 Social Influencers of Health Screening 04/17/2022 COVID-19 Vaccine (1 - 2023-2 5 season) 2024 Depression Screening 05/15/2024 DTaP,Tdap,and Td Vaccines (2 - Td or Tdap) 11/05/2024 11/05/2014 Influenza Vaccine (#1) 2025 RSV Immunization Adult Patie nts (1 [...] Maintenance Results * Hepatitis C Screening (09/07/2015) Hepatitis C Screening ABSTRACTED us Historical Provider HEALTH MAINTENANCE Final Result * (ABNORMAL) Lipid panel (04/10/2015) [facility] LDL/HDL Ratio 5(A) 0 - 4 Triglycerides 185(A) 0 - 150 mg/dL Cholesterol 184 0 - 200 mg/dL HDL 35(A) >=40 mg/dL LDL Cholesterol 112(A) 0 - 100 mg/dL Blood Venous blood specimen / Unknown Historical Provider LAB BLOOD ORDERABLES Viridiana l Result * Colonoscopy (12/22/2014) [facility] Colonoscopy no interpretation , abstracted Anatomical Region Laterality Modality Other [facility] Provider HEALTH MAINTENANCE Final Result * HIV Screening (02/23/2004) [facility] HIV Screening ABSTRACTED [facility] Provider HEALTH MAINTENANCE Final Result from Last 3 Months or Most Recently Relevant to Health Maintenance Care Teams Audit Reviewer Relationship Specialty Start Date End Date Barrie Pink MD [address] [place] [phone] PCP - General Internal Medicine 08/11/14
--- OUTSIDE RECORDS SUMMARY | 2024-12-18 07:20 | XMS_ITS | Encounter Summary ---
Author Organization [employer] Address [address] [place] [address] [address] [place] [address] Care Team Providers Care High Lighter Name Role Phone [facility] Primary Care Provider [phone] Reason for Visit * Reason Comments Med Refill Encounter Details Date Type Department Care Team (Late st Contact Info) Description 08/29/2022 Refill [facility] MEDICINE [address] [place], [place] [phone] [facility] [address] [place] [address] Type 2 diabetes mellitus without complication, without [...] documented as of this encounter Care Teams High Lighter Relationship Specialty Start Date End Date Kala Rizzo FNP [address] [place] [phone] PCP - General Family Medicine 10/22/21 documented as of this encounter
== END 2024-12-18 08:28 | disposition home or self-care (01) ==
LOC: HO.HUSH 07:19
PROVIDERS: PCP Registered Nurse; Visit Provider Nurse Practitioner Family
DX: E29.1 Testicular hypofunction (principal); R68.82 Decreased libido
CPT/HCPCS: 99214

== ENCOUNTER 2024-12-23 08:57 | Outpatient (REF) | payer OTHER, SELFPAY ==
--- OUTSIDE RECORDS SUMMARY | 2024-12-23 09:20 | XMS_ITS | Clinical Summary ---
Author Organization [facility] Address [address] [place] [address] Care Team Providers Care Visual Basic Developer Name Role Phone Barrie Pink MD Primary Care Provider [phone] Allergies No known active allergies Medications multivitamin/ir [...] Final Result * (ABNORMAL) Lipid panel (04/10/2015) [facility] LDL/HDL Ratio 5(A) 0 - 4 Triglycerides 185(A) 0 - 150 mg/dL Cholesterol 184 0 - 200 mg/dL HDL 35(A) >=40 mg/dL LDL Cholesterol 112(A) 0 - 100 mg/dL Blood Venous blood specimen / Unknown Historical Provider LAB BLOOD ORDERABLES Viridiana l Result * Colonoscopy (12/22/2014) [facility] Colonoscopy no interpretation , abstracted Anatomical Region Laterality Modality Other [facility] Provider HEALTH MAINTENANCE Final Result * HIV Screening (02/23/2004) [facility] HIV Screening ABSTRACTED [facility] Provider HEALTH MAINTENANCE Final Result from Last 3 Months or Most Recently Relevant to Health Maintenance Care Teams Visual Basic Developer Relationship Specialty Start Date End Date Barrie Pink MD [address] [place] [phone] PCP - General Internal Medicine 08/11/14
--- OUTSIDE RECORDS SUMMARY | 2024-12-23 09:20 | XMS_ITS | Encounter Summary ---
Author Organization [employer] Address [address] [place] [address] [address] [place] [address] Care Team Providers Care Senior Sales Operations Analyst Name Role Phone [facility] Primary Care Provider [phone] Reason for Visit * Reason Comments Med Refill Encounter Details Date Type Department Care Team (Late st Contact Info) Description 08/29/2022 Refill [facility] MEDICINE [address] [place], [place] [phone] [facility] [address] [place] [address] Type 2 diabetes mellitus without complication, without [...] documented as of this encounter Care Teams Senior Sales Operations Analyst Relationship Specialty Start Date End Date Kala Rizzo FNP [address] [place] [id number] PCP - General Family Medicine 10/22/21 documented as of this encounter
[2024-12-23 12:12] LABS: Prostate Specific Antigen 0.75 ng/mL (<0.05-4.0)
[2024-12-24 05:24] LABS: Follicle Stimulating Hormone 3.5 mIU/mL (1.4-12.8)
[2024-12-27 18:58] LABS: Testosterone, Free 55.6 pg/mL (35.0-155.0)
[2025-01-08 04:39] LABS: Estradiol Free 0.49 pg/mL; Estradiol, Ultrasensitive 21 pg/mL (< OR = 29)
== END 2024-12-23 08:58 | disposition home or self-care (01) ==
LOC: HO.HHCL 08:57
PROVIDERS: PCP Registered Nurse; Visit Provider Nurse Practitioner Family
DX: E29.1 Testicular hypofunction (principal)
CPT/HCPCS: 36415; 82670; 82681; 83001; 83002; 84146; 84153; 84270; 84402; 84403

== ENCOUNTER 2025-01-28 07:26 | Outpatient (AMB) | payer OTHER, SELFPAY ==
--- NOTE | 2025-01-28 07:26 | A.OFFVIS_ITS ---
Intake Visit Reasons: 1m/labs Intake Note: Patient presents for tele visit 1 mo follow up Free Testosterone: 55.6 Sex HB PSA:0.75 Estradiol:0.49 LH:3.4, FSH:3.5 PRO:3.8 Total testosterone : 266 Urology Medications: sildenafil and tadalafil Blood Thinner: none Milk Inspector Required: No Accompanied by: Self / Same As Patient Allergies No Known Allergies Allergy (Verified 01/28/25 07:51) Medication List - Last Reconciled 01/28/25 by OLIVE Naidu-JOSH empagliflozin (Jardiance) 10 mg PO DAILY rosuvastatin 20 mg PO QAM sildenafil (Viagra) 25 - 50 mg PO tadalafil (Cialis) 10 mg PO DAILY 90 days HPI Comments Details: Ascencion is a very pleasant 59-year-old male patient of Dr. Rizzo. He has a past medical history of hypercholesteremia and type 2 diabetes. He is being follow-up on today via telehealth for his low libido and hypogonadism. In discussion with the patient today he reports to be doing and feeling well. He reports compliance with daily dosing of tadalafil and feels this has been somewhat helpful however he does continue to experience issues with libido as well as his erections. Recent labs were reviewed with the patient today as noted and trended below: PSA 07/08 0.4, 01/06 0.8 Total testosterone 08/05 262, 01/05 262, 04/07 290, 11/06 205, 01/06 266 Free testosterone 01/05 56.9. 04/07 67.0, 11/06 35.5, 01/06 55.6 Estradiol:01/06 21 FSH: 01/06 3.5 LH: 01/06 3.4 Prolactin: 01/06 3.8 SHB/25 14 We did discuss potential causes of borderline hypogonadism as well as further treatment treatment options. Risks and benefits of these treatment options were discussed. We also discussed the importance of continuing to manage diabetes for improvement in urological conditions as well as overall health and well- being. We discussed continuing lifestyle modifications to assist with erectile dysfunction. He does report episodes of urinary frequency however relates this to his Jardiance. He denies urinary urgency, incontinence, nocturia, hematuria, dysuria, foul smelling urine, changes to urinary stream, flank pain, fever, and or chills. He is happy with his current voiding parameters. He otherwise offers no other issues or concerns at this time. 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 Review of Systems Const All systems reviewed & are unremarkable except as noted in HPI and below Reports as per HPI Eyes Reports no additional complaints ENT Reports no additional complaints Card Reports as per HPI Resp Reports no additional complaints GI Denies abdominal pain and Denies nausea Musc Denies no additional complaints Neuro Reports no additional complaints Physical Exam Const General: cooperative Orientation/consciousness: patient oriented x3 Resp Effort & Inspection: able to speak in complete sentences Neuro General: patient oriented x3 Psych Speech and movement: Clear speech present Attitude: cooperative Thought content: Normal thought content present Insight: Fair insight present (Psych) Judgement: Fair judgement present (Psych) Telehealth Telehealth Telehealth Platform: [facility] Location of provider rendering services: practice address Location of patient: address on file Patient Identification confirmed using: Name, : Yes Telehealth method: voice only Patient verbally consented to treatment: Yes Patient verbally consented to billing insurance company: Yes Patient informed of any privacy concerns related to visit: Yes Minutes spent on Phone/Video with Pt.: 20 Assessment & Plan Assessment & Plan (1) Hypogonadism in male: Code(s): E29.1 - Testicular hypofunction Category: Medical (2) Low libido: Code(s): R68.82 - Decreased libido Category: Medical Plan Recent labs were reviewed with the patient today; as noted above. We discussed at length potential causes of low libido, fatigue, and erectile dysfunction. We also discussed potential causes and further treatment options of borderline hypogonadism; we discussed risks and benefits of these treatment options All questions were answered Start clomiphene as discussed and prescribed We discussed importance of obtaining labs status post completion of 7 day treatment We also discussed the importance of lifestyle modifications We discussed the importance of management and diabetes in relation to urological issues as well as overall health and well-being. Will obtain testosterone and LH after completion of confirming Follow-up in 1-2 months with labs to be completed prior; or sooner with any issues, concerns, and or questions. Medications: New clomiphene citrate please get labs on the 8th day. [id number] [facility] GroupGDRX Member [id number] 100 mg (2 x 50 mg) PO DAILY 14 tabs 0RF 7 days E29.1 - Testicular hypofunction, R79.89 - Other specified abnormal findings of blood chemistry Patient Instructions: The patient had an opportunity to ask questions regarding the treatment plan. All questions were answered. Physical exam, labs, and imaging were discussed and reviewed in detail. As well as risks, benefits, and discussion of treatment choices. No major barriers to understanding were identified. The patient expressed understanding and agreement with the above treatment plan. The patient was made aware they should contact our office by phone for worsening of their current condition, the appearance of new symptoms, or with any questions or concerns. Compliance is encouraged with any medications and follow up testing that is ordered. It is a privilege to be allowed the opportunity to participate in? your urological care.? Again, if you have any questions or concerns If you have any questions or concerns please do not hesitate to contact me. The office is [phone]. This note is constructed using voice recognition software. While every effort has been made to ensure accuracy airfreight operations agent errors may have been included. Yours sincerely, MARTIN Naidu Coding Level of Care Code Tele Est Pt Level 4 (57722) Diagnoses Hypogonadism in male E29.1 Low libido R68.82
--- OUTSIDE RECORDS SUMMARY | 2025-01-28 07:28 | XMS_ITS | Encounter Summary ---
Author Organization [employer] Address [address] [facility] 7 [place] [address] Care Team Providers Care Sample Supervisor Name Role Phone [facility] Primary Care Provider [phone] Reason for Visit * Reason Onset Date Comments Med Refill 08/13/2023 Encounter Details Date Type Department Care Team (Late st Contact Info) Description 08/13/2023 Refill [facility] [address] [place], [place] [phone] [facility] [address] [place], [place] [phone] Type 2 diabetes mellitus without complication, without long-term current use of insulin ([facility]) Social History Tobacco Use Types Packs/Day Years [...] as of this encounter Plan of Treatment Upcoming Encounters Date Type Department Care Team (Late st Contact Info) Description 02/05/2025 9:15 AM EDT Office Visit [facility] [address] [place] [address] [place] [facility] [address] [place] [address] documented as of this encounter Visit Diagnoses Diagnosis Type 2 diabetes mellitus without complication, without long-term current use of insulin ([facility]) documented in this encounter Additional Health Concerns Assessment Noted Time PHQ-9 Depression Total Score: 0 07/21/19 24 9:18 AM EST documented as of this encounter Care Teams Sample Supervisor Relationship Specialty Start Date End Date [place] [facility] [address] [place] [address] PCP - General Family Medicine 10/22/21 documented as of this encounter
--- OUTSIDE RECORDS SUMMARY | 2025-01-28 07:28 | XMS_ITS | Clinical Summary ---
Author Organization [facility] Address [address] [place] [address] Care Team Providers Care Waterworks Supervisor Name Role Phone Barrie Pink MD Primary Care Provider [phone] Allergies No known active allergies Medications multivitamin/ir [...] Influencers of Health Screening 04/17/2022 Depression Screening 05/15/2024 DTaP,Tdap,and Td Vaccines (2 - Td or Tdap) 11/05/2024 11/05/2014 COVID-19 Vaccine (1 - 2023-2 5 season) 2025 Influenza Vaccine (#1) 2025 RSV Immunization Adult [...] Final Result * (ABNORMAL) Lipid panel (04/10/2015) [facility] LDL/HDL Ratio 5(A) 0 - 4 Triglycerides 185(A) 0 - 150 mg/dL Cholesterol 184 0 - 200 mg/dL HDL 35(A) >=40 mg/dL LDL Cholesterol 112(A) 0 - 100 mg/dL Blood Venous blood specimen / Unknown Historical Provider LAB BLOOD ORDERABLES Viridiana l Result * Colonoscopy (12/22/2014) [facility] Colonoscopy no interpretation , abstracted Anatomical Region Laterality Modality Other [facility] Provider HEALTH MAINTENANCE Final Result * HIV Screening (02/23/2004) [facility] HIV Screening ABSTRACTED [facility] Provider HEALTH MAINTENANCE Final Result from Last 3 Months or Most Recently Relevant to Health Maintenance Care Teams Waterworks Supervisor Relationship Specialty Start Date End Date Barrie Pink MD [address] [place] [address] PCP - General Internal Medicine 08/11/14
--- OUTSIDE RECORDS SUMMARY | 2025-01-28 07:28 | XMS_ITS | Encounter Summary ---
Author Organization [employer] Address [address] [place] [address] 7 [place] [address] Care Team Providers Care Auto Damage Adjuster Name Role Phone [facility] Primary Care Provider [phone] Reason for Visit * Reason Comments Med Refill Encounter Details Date Type Department Care Team (Late st Contact Info) Description 08/29/2022 Refill [facility] [address] [place] [address] [phone] [facility] [address] [place] [address] Type 2 diabetes mellitus without complication, without long-term current use of insulin ([facility]) Social History Tobacco Use Types Packs/Day Years [...] Description 02/05/2025 9:15 AM EDT Office Visit [facility] [address] [place] [address], [place] [address] Kala Rizzo FNP [address] [place] [address] documented as of this encounter Visit Diagnoses Diagnosis Type 2 diabetes mellitus without complication, without long-term current use of insulin ([facility]) documented in this encounter Additional Health Concerns Assessment Noted Time PHQ-9 Depression Total Score: 0 04/29/20 22 2:01 PM EST documented as of this encounter Care Teams Auto Damage Adjuster Relationship Specialty Start Date End Date Kala Rizzo FNP [address] [place] [address] PCP - General Family Medicine 10/22/21 documented as of this encounter
--- OUTSIDE RECORDS SUMMARY | 2025-01-28 07:28 | XMS_ITS | Encounter Summary ---
Author Organization [employer] Address [address] [facility] 7[address] [place] [address] Care Team Providers Care Hammer Shop Supervisor Name Role Phone Kala Rizzo CHANGE MANAGEMENT MANAGER Primary Care Provider [phone] Encounter Details Date Type Department Care Team (Late st Contact Info) Description 07/03/2024 Orders Only [facility] [address] [place] [address] Provider, MD Valerie Social History Tobacco Use [...] Description 02/05/2025 9:15 AM EDT Office Visit [facility] [address] [place] [address] Kala Rizzo FNP [address] [place] [address] documented as of this encounter Procedures Procedure Name Priority Date/Time Associated Diagnosis Comments HM COLONOSCOPY Routine 07/02/2024 2:27 PM EST documented in this encounter Results * Hm Colonoscopy (07/02/2024 2:27 PM EST) us Historical Provider HEALTH MAINTENANCE Final Result documented in this encounter Visit Diagnoses Not on filedocumented in this encounter Additional Health Concerns Assessment Noted Time PHQ-9 Depression Total Score: 0 01/26/20 9:15 AM EDT documented as of this encounter Care Teams Hammer Shop Supervisor Relationship Specialty Start Date End Date Kala Rizzo FNP [address] [place] [address] PCP - General Family Medicine 10/22/21 documented as of this encounter
--- OUTSIDE RECORDS SUMMARY | 2025-01-28 07:28 | XMS_ITS | Encounter Summary ---
Author Organization [employer] Address [address] [facility] 7t [place] [address] Care Team Providers Care Manager Of Investigations Name Role Phone Kala Rizzo [facility] Primary Care Provider [phone] Encounter Details Date Type Department Care Team ([facility] st Contact Info) Description 03/31/2023 Abstract [facility] [address] [place] [address] Lori Mccray Social History Tobacco Use Types [...] Description 02/05/2025 9:15 AM EDT Office Visit [facility] [address] [place] [address] Kala Rizzo FNP [address] [place] [address] documented as of this encounter Procedures Procedure [...] documented as of this encounter Care Teams Manager Of Investigations Relationship Specialty Start Date End Date Kala Rizzo FNP [address] [place] [address] PCP - General Family Medicine 10/22/21 documented as of this encounter
--- OUTSIDE RECORDS SUMMARY | 2025-01-28 07:28 | XMS_ITS | Encounter Summary ---
Author Organization [employer] Address [address] [facility] 7 [place] [address] Care Team Providers Care Pack Mule Worker Name Role Phone [facility] Primary Care Provider [phone] Reason for Visit * Reason Comments Med Change Request Encounter Details Date Type Department Care Team ([facility] st Contact Info) Description 08/10/2023 Refill [facility] [address] [place], [place] [phone] [facility] [address] [place], [place] [phone] Type 2 diabetes mellitus without complication, without long-term current use of insulin ([facility]) Social History Tobacco Use Types Packs/Day [...] Description 02/05/2025 9:15 AM EDT Office Visit [facility] [address] [place] [address] [place] [facility] [address] [place] [address] documented as of this encounter Visit Diagnoses Diagnosis Type 2 diabetes mellitus without complication, without long-term current use of insulin ([facility]) documented in this encounter Additional Health Concerns Assessment Noted Time PHQ-9 Depression Total Score: 0 07/21/19 24 9:18 AM EST documented as of this encounter Care Teams Pack Mule Worker Relationship Specialty Start Date End Date Kala Rizzo FNP [address] [place] [address] PCP - General Family Medicine 10/22/21 documented as of this encounter
--- OUTSIDE RECORDS SUMMARY | 2025-01-28 07:28 | XMS_ITS | Encounter Summary ---
Author Organization [employer] Address [address] [facility] 7 [place] [address] Care Team Providers Care Recycler Name Role Phone [facility] Primary Care Provider [phone] Reason for Visit * Reason Onset Date Comments Med Refill 06/29/2024 Encounter Details Date Type Department Care Team (Late st Contact Info) Description 06/29/2024 Refill [facility] [address] [place], [place] [phone] [facility] [address] [place], [place] [phone] Social History Tobacco Use Types Packs/Day Years [...] Description 02/05/2025 9:15 AM EDT Office Visit [facility] [address] [place] [address] [place] [address] [place] [address] documented as of this encounter Visit Diagnoses Not on filedocumented in this encounter Additional Health Concerns Assessment Noted Time PHQ-9 Depression Total Score: 0 01/26/20 9:15 AM EDT documented as of this encounter Care Teams Recycler Relationship Specialty Start Date End Date Kala Rizzo FNP [address] [place] [address] PCP - General Family Medicine 10/22/21 documented as of this encounter
--- OUTSIDE RECORDS SUMMARY | 2025-01-28 07:28 | XMS_ITS | Encounter Summary ---
Author Organization [employer] Address [address] [facility] 7 [place] [address] Care Team Providers Care Dye Worker Name Role Phone [facility] Primary Care Provider [phone] Reason for Visit * Reason Onset Date Comments Med Refill 03/24/2024 Encounter Details Date Type Department Care Team (Late st Contact Info) Description 03/24/[address] [facility] [address] [place], [place] [phone] [facility] [address] [place], [place] [phone] Mixed hyperlipidemia; Type 2 diabetes mellitus without complication, without long-term current use of insulin ([facility]); Erectile dysfunction, unspecified erectile dysfunction type Social [...] Description 02/05/2025 9:15 AM EDT Office Visit [facility] [address] [place] [address] Kala Rizzo FNP [address] [place] [address] documented as of this encounter Visit Diagnoses Diagnosis Mixed hyperlipidemia Type 2 diabetes mellitus without complication, without long-term current use of insulin ([facility]) Erectile dysfunction, unspecified erectile dysfunction type documented in this encounter Additional Health Concerns Assessment Noted Time PHQ-9 Depression Total Score: 0 01/26/20 24 9:15 AM EDT documented as of this encounter Care Teams Dye Worker Relationship Specialty Start Date End Date Kala Rizzo FNP [address] [place] [address] PCP - General Family Medicine 10/22/21 documented as of this encounter
--- OUTSIDE RECORDS SUMMARY | 2025-01-28 07:28 | XMS_ITS | Clinical Summary ---
Author Organization [employer] Address [address] [facility] 7 [place] [address] Care Team Providers Care Business Advisor Name Role Phone Kala Rizzo [facility] Primary Care Provider [phone] Allergies No known active allergies Medications Diclofenac [...] complication, without long-term current use of insulin (CMS/[facility]) Take 1 tablet (10 mg) [...] TIMES A DAY 100 each 025 Active ketoconazole (NIZOral) 2 % creamIndications: Tinea cruris Apply topically Once per day. For 14 days. 20 g 025 Active betamethasone valerate (Valisone) 0.1 % creamIndications: Tinea cruris Apply topically if needed in the morning and at bedtime (dryness/ithcin g twice daily as needed for up to 14 days apply ketoconazole first) for up to 14 days. 45 g 2 025 2024 Discontinued ketoconazole (NIZOral) 2 % creamIndications: Tinea cruris Apply topically Once per day. For 14 days. 20 g 025 2024 Discontinued betamethasone valerate (Valisone) 0.1 % creamIndications: Tinea cruris Apply topically if needed in the morning and at bedtime (dryness/ithcin g twice daily as needed for up to 14 days apply ketoconazole first) for up to 14 days. 45 g 2 025 2024 Active Problems Problem Noted Date Diagnosed Date Tinea cruris 01/10/2025 Assessment & Plan (01/10/2025 10:44 AM EDT): Suspect tinea significant itching and irritation, trial ketoconazole nightly, And prn betamethasone bid for itch. History of colon polyps 07/24/2023 Chronic low back pain 05/04/2022 Assessment & Plan (05/04/2022 1:44 PM EST): - Long hx of LBP r/t job requiring heavy lifting - Previously seen by chiropractor at - No numbness, tingling, loss of bowel/bladder function - No imaging on file Healthcare maintenance 04/29/2022 Overview (01/26/2024): C-Scope: Upcoming appt. 2024. Every 3 years-tubular adenoma. [facility] PSA:.41 06/2023 Vision Exam: Referred 07/2023 Dental Care: UTD Immunizations: UTD Assessment & Plan (07/24/2023 9:47 PM EDT): Referral to GI for repeat CRC screening Dental referral Vision referral Accepts updated COVID vaccine Assessment & Plan (05/04/2022 1:51 PM EST): C-Scope: 03/2021 at [facility], rachnas repeat due 3-5 years PSA: Ordered today HCV Screen: Neg 2019 HIV Screen: Neg 2019 STI Screening: Declines Vision Exam: 05/2021 [facility] Care: Will establish at [facility] Immunizations: Needs shingles in pharmacy. 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 [facility] BMP: Ordered today Microalbumin: Ordered today Foot Exam: 01/2022, Risk 0 Eye Exam: [facility] 05/2021 Lipid panel: Ordered today ASCVD: Calculate [...] Encounters Date Type Department Care Team Description 01/10/2025 10:30 AM EDT Office Visit [facility] [address] [place] [phone] Reyna Dutta NP Type 2 diabetes mellitus without complication, without long-term current use of insulin ([facility]) (Primary Dx); Enedelia boss 01/10/2025 Travel 01/09/2025 Travel 01/09/[address] [phone] Nohemi Cai [place] CHARTPREP 01/09/2025 Telephone [facility] [address] [place] [phone] Kala Rizzo FNP 12/23/2024 Orders Only GENERIC EXTERNAL DATA DEPARTMENT Provider, Generic External Data 11/04/2024 Telephone [facility] [address] [place] [phone] Kala Rizzo FNP Stable Lab Letter 11/04/2024 Results Follow-Up [facility] [address] [place] [phone] Kala Rizzo FNP Albumin, Random Urine W/Creatinine, Lipid Panel, Standard, Basic Metabolic Panel, T-SPOT .TB 10/29/2024 Orders Only GENERIC EXTERNAL DATA DEPARTMENT Provider, Generic External Data from Last 3 Months Immunizations Immunization Administration Dates Next Due Influenza injectable quadriv [...] Packs/Day Years Used Date Smoking Tobacco: Never Passive Smoke Exposure: Never Smokeless Tobacco: Never Tobacco Cessation:Counseling Given: [...] the past 12 months, has t he [employer], oil or water [employer] threatened to shut off services in your [...] Sign Reading Time Taken Comments Blood Pressure 138/76 01/10/2025 10:34 AM EDT Pulse 65 01/10/2025 10:34 AM EDT Temperature 36.9 C (98.4 F) 01/10/2025 10:34 AM EDT Respiratory Rate 16 01/10/2025 10:34 AM EDT Oxygen Saturation 98% 01/10/2025 10:34 AM EDT Inhaled Oxygen Concentration - - Weight 94 kg (207 lb 2 oz) 01/10/2025 10:34 AM E DT Height 190.5 cm (6' 3 ) 01/10/2025 10:34 AM EDT Body Mass Index 25.89 01/10/2025 10:34 AM EDT Plan of Treatment Upcoming Encounters Date Type Department Care Team (Late st Contact Info) Description 02/05/2025 9:15 AM EDT Office Visit [facility] [address] [place] [address] [facility] [address] [place] [address] Health Maintenance Due Date Last Done Comments CT Colonography 1964 FIT DNA/Cologuard 1964 FIT 1964 FOBT 1965 Sigmoidoscopy 1964 Diabetes: Foot Exam 10/24/2024 10/25/2023, 10/25/2023, 10/25/2023, Additional history exists Influenza Vaccine (#1) 2025 , 04/29/2022, 05/22/2020 SDOH Screening 01/25/2025 01/26/2024 Diabetes: Hemoglobin A1C 04/12/2025 025, 10/29/2024, 07/15/2024, Additional history exists Depression Screening 07/15/2025 07/15/2024, 07/16/19 Eye Exam 07/27/2025 07/28/2023, 05/2023, 05/15/2021 Diabetes: Urine Protein Screening 10/29/2025 10/29/2024, 06/30/2023, 06/03/2020 Lipid Panel 10/29/2025 10/29/2024, 06/15, 06/03/2020, Additional history exists Alcohol/Substance Use Screening 01/10/2026 01/10/2025 Disability Screening 01/10/2026 01/10/2025 Tobacco Screening 01/10/2026 01/10/2025 Colonoscopy 07/02/2027 07/02/2024, 03/26/2021 Colorectal Cancer Screening 07/02/2027 DTaP/Tdap/Td Vaccines (3 - Td or Tdap) 05/22/2030 05/22/2020, 11/05/2014 RSV Patients and Patients Aged 60 years or older (1 - 1-dose 75+ series) 2039 HIV Screening Discontinued 03/10/2020 Hepatitis C Screening Discontinued 03/10/2020 Zoster Vaccines Completed 04/29/2022, 01/24/2022 COVID-19 Vaccine Completed 07/15/2024, 12/2023, 04/29/2022, Additional [...] Name Priority Date/Time Associated Diagnosis Comments POCT GLYCATED HEMOGLOBIN, TOTAL Routine 01/10/2025 10:42 AM EDT Type 2 diabetes mellitus without complication, without long-term current use of insulin ([facility]) POCT GLUCOSE Routine 01/10/2025 10:36 AM EDT Type 2 diabetes mellitus without complication, without long-term current use of insulin ([facility]) ESTRADIOL, FREE Routine 12/23/2024 9:25 AM EDT TESTOSTERONE, FREE (DIALYSIS) AND TOTAL,MS Routine 12/23/2024 9:25 AM EDT SEX HORMONE BINDING GLOBULIN Routine 12/23/2024 9:25 AM EDT PROLACTIN Routine 12/23/2024 9:25 AM EDT LH Routine 12/23/2024 9:25 AM EDT FSH Routine 12/23/2024 9:25 AM EDT PSA, TOTAL Routine 12/23/2024 9:25 AM EDT TESTOSTERONE, FREE (DIALYSIS) AND TOTAL,MS Routine 10/29/2024 9:44 AM EDT HEMOGLOBIN A1C Routine 10/29/2024 9:44 AM EDT T-SPOT(R).TB Routine 10/29/2024 9:44 AM EDT Type 2 diabetes mellitus without complication, without long-term current use of insulin ([facility]) BASIC METABOLIC PANEL Routine 10/29/2024 9:44 AM EDT Type 2 diabetes mellitus without complication, without long-term current use of insulin ([facility]) LIPID PANEL, STANDARD Routine 10/29/2024 9:44 AM EDT Type 2 diabetes mellitus without complication, without long-term current use of insulin (CMS/HCC) ALBUMIN, RANDOM URINE W/CREATININE Routine 10/29/2024 9:44 AM EDT Type 2 diabetes mellitus without complication, without long-term current use of insulin (CMS/HCC) HM COLONOSCOPY Routine 07/02/2024 2:27 PM EST AMB REFERRAL TO OPTOMETRY Routine 07/28/2023 Type 2 diabetes mellitus without complication, without long-term current use of insulin (CMS/HCC) ZZZ HISTORICAL HEPATITIS PANEL, ACUTE W/REFLEX TO CONFIRMATION Routine 03/10/2020 2:16 PM EDT HIV 1/2 ANTIGEN/ANTIBODY, FOURTH GENERATION W/RFL Routine 03/10/2020 2:16 PM EDT from Last 3 Months or Most Recently Relevant to Health Maintenance Results * (ABNORMAL) POCT HGB A1C (01/10/2025 10:42 AM EDT) Hemoglobin A1C 7.4(A) 4.0 - 5.7 % QC Media Lot # [id number] Lot# Expiration Date 2,027 Blood 01/10/2025 10:4 2 AM EDT Reyna Dutta NP POINT OF CARE TEST ENTER/EDIT OR DERABLES Final Result * POCT Glucose (01/10/2025 10:36 AM EDT) Glucose Blood, POC 178 60 - 200 mg/dL QC Media Lot # [id number] Lot# Expiration Date 2251,026 Blood Capillary blood specimen / Unknown 01/10/2025 10:36 AM EDT Reyna Dutta NP POINT OF CARE TEST ENTER/EDIT OR DERABLES Final Result * (ABNORMAL) Estradiol, Free (12/23/2024 9:25 AM EDT) Pathologist [facility] Estradiol, Free 0.49(A) pg/mL [facility] Comment:Reference Range:ADUL TS: < OR = 0.45 Estradiol, Ultrasensitive, LC/MS 21 < OR = 29 pg/mL [facility] Comment:This test was develo ped and its analytical performancecharacteristics have been determined by [employer].It has not been cleared or approved by the FDA. This assayhas been validated pursuant to the CLIA regulations and isused for clinical purposes.THIS TEST WAS PERFORMED AT:[employer] [id number] [facility] [place] [address]NEWHKJIMENEZ LINDA MD,PHD,WENDY 12/23/2024 9:25 AM EDT 12/23/2024 11:18 AM EDT Generic External Data Provider LAB BLOOD ORDERAB LES Final Result Performing Organization Address [facility]/ZIP Co de Phone Number [facility] [address] [place] [address] [phone] * (ABNORMAL) Sex Hormone Binding Globulin (SHBG) (12/23/2024 9:25 AM EDT) [facility] Sex Hormone Binding Globulin 14(A) 22 - 77 nmol/L [facility] Comment:THIS TEST WAS PERFOR MED AT:[employer] [address] [phone] LAUGHLIN MD 12/23/2024 9:25 AM EDT 12/23/2024 11:18 AM EDT us Generic External Data Provider LAB BLOOD ORDERAB LES Final Result Performing Organization Address [facility] Co de Phone Number [facility] [address] [place] [address] [phone] * Prolactin (12/23/2024 9:25 AM EDT) [facility] Prolactin 3.8 2.0 - 18.0 ng/mL [facility] Comment:THIS TEST WAS PERFOR MED AT:[employer] [place] [id number] LAUGHLIN MD 12/23/2024 9:25 AM EDT 12/23/2024 11:18 AM EDT us Generic External Data Provider LAB BLOOD ORDERAB LES Final Result [facility] [address] [place] [address] [phone] * Testosterone, Free (Dialysis) And Total, MS (12/23/2024 9:25 AM EDT) Only the most recent of2 resultswithin the time period is included. Testosterone, Total 266 250 - 1100 ng/dL [facility] Comment:For additional infor zaina, please refer tohttp://education.[employer]/faq/ZcyxtOwawqimlbasrXKAOPRXLV678(This link is being provided for informational/educational purposes only.)This test was developed and its analytical performancecharacteristics have been determined by [employer] [facility] [place], [place]. It hasnot been cleared or approved by the U.S. Food and DrugAdministration. This assay has been validated pursuantto the CLIA regulations and is used for clinicalpurposes. Testosterone, Free 55.6 35.0 - 155.0 pg/mL [facility] Comment:This test was develo ped and its analytical performancecharacteristics have been determined by [employer] [place], [place]. It hasnot been cleared or approved by the U.S. Food and DrugAdministration. This assay has been validated pursuantto the CLIA regulations and is used for clinicalpurposes.THIS TEST WAS PERFORMED AT:[employer] [id number] [place] [address]BQNQPRYMICAH CALLAHAN MD,PHD 12/23/2024 9:25 AM EDT 12/23/2024 11:18 AM EDT us Generic External Data Provider LAB BLOOD ORDERAB LES Final Result Performing Organization Address [facility] Co de Phone Number [facility] [address] [place] [phone] * PSA,Total (12/23/2024 9:25 AM EDT) Prostate Specific Antigen 0.75 <0.05 - 4.0 ng/mL [facility] Comment:PSA methodology: Abb kaci Alinity i ChemiluminescentMicroparticle Immunoassay (CMIA) 12/23/2024 9:25 AM EDT 12/23/2024 11:22 AM EDT Generic External Data Provider LAB BLOOD ORDERAB LES Final Result Performing Organization Address [facility] Phone Number [facility] [address] [place] [phone] * LH (12/23/2024 9:25 AM EDT) Lutenizing Hormone 3.4 1.6 - 15.2 mIU/mL [facility] Comment:THIS TEST WAS PERFOR MED AT:[employer] [address] [address]SDAUDHAYLIE LAUGHLIN MD 12/23/2024 9:25 AM EDT 12/23/2024 11:18 AM EDT us Generic External Data Provider LAB BLOOD ORDERAB LES Final Result Performing Organization Address [facility] Co de Phone Number [facility] [address] [place] [phone] * FSH (12/23/2024 9:25 AM EDT) Follicle Stimulating Hormone 3.5 1.4 - 12.8 mIU/mL [facility] Comment:THIS TEST WAS PERFOR MED AT:[employer] [address] [address]ZWTBYHAYLIE LAUGHLIN MD 12/23/2024 9:25 AM EDT 12/23/2024 11:18 AM EDT us Generic External Data Provider LAB BLOOD ORDERAB LES Final Result [facility] [address] [place] [address] [phone] * T-SPOT??.TB (10/29/2024 9:44 AM EDT) [facility] T Spot TB Negative Negative [facility] Comment:A negative test resu lt does not exclude the possibilityof exposure to or infection with Mycobacteriumtuberculosis (M. tuberculosis). Patients with recentexposure to TB infected individuals exhibiting anegative T-SPOT.TB result should be considered forretesting within 6 weeks or if other relevant clinicalsymptoms indicate. Results from T-SPOT.TB testing mustbe used in conjunction with each individual'sepidemiological history, current medical status,and results of other diagnostic evaluations.The T-SPOT.TB test is qualitative and results arereported as positive, borderline, or negative, giventhat the test controls perform as expected. In linewith the Centers for Disease Control and Prevention's2010 recommendation to report quantitative measurementsalongside the qualitative result, the laboratoryprovides spot counts for informational purposes only.The T-SPOT.TB test should not be interpreted as aquantitative test. TS PANEL A 0 [facility] TS PANEL B 0 [facility] Negative Control Passed [facility] Positive Control Passed [facility] Comment:For additional infor mation, please refer tohttp://education.[employer]/faq/ZFU945(This link is being provided for informational/educational purposes only.)THIS TEST WAS PERFORMED AT:[employer]/[id number] [place] [address]UHGEZDKMICAH CALLAHAN MD,PHD 10/29/2024 9:44 AM EDT 10/29/2024 11:45 AM EDT [facility] LAB BLOOD ORDERABLES Final Re sult Performing Organization Address [facility] Co de Phone Number [facility] [address] [place] [phone] * Albumin, Random Urine W/Creatinine (10/29/2024 9:44 AM EDT) Creatinine, Urine 70.46 mg/dL [facility] Microalbumin Urine <5.0 mg/L [facility] Microalbum Creatinine Ratio Ur TNP <30 ug/mg cr [facility] Comment:Unable to calculate albumin/creatinine ratio due to lowmicroalbumin or creatinine result. Urine 10/29/2024 9:44 AM EDT 10/29/2024 11:32 AM EDT [facility] LAB URINE ORDERABLES Final Re sult Performing Organization Address [facility] de Phone Number [facility] [address] [place] [phone] * (ABNORMAL) Hemoglobin A1c (10/29/2024 9:44 AM EDT) Hemoglobin A1c 7.6(H) <6.0 % [facility] Comment:Hemoglobin A1C Refer ence Range Adults: 4.8 - 6.0 % Non diabetic: < 6.0 % Goal: < 7.0 %Additional Action Suggested: > 8.0 %Note: Hemoglobin A1c results are invalid for patients with abnormal amounts of HbF. Blood transfusions may impact the HbA1c concentration in the patient sample. Estimated Average Glucose 171 mg/dL [facility] Comment:eAG = Estimated ave rage glucose which is %A1C expressed asaverage glucose, using the formula of the N0U-NsiwvexEwxeqlo Glucose study (ADAG), Diabetes Care, Vol.31,#8,Dec. 2007 10/29/2024 9:44 AM EDT 10/29/2024 11:45 AM EDT us Generic External Data Provider LAB BLOOD ORDERAB LES Final Result Performing Organization Address [facility] Co de Phone Number [facility] [address] [place] [address] [phone] * (ABNORMAL) Lipid Panel, Standard (10/29/2024 9:44 AM EDT) Triglycerides 94 <150 mg/dL [facility] Comment:Desirable Triglyceri de: less than 150 mg/dLBorderline High Triglyceride 150-199 mg/dLHigh Triglyceride: 200-499 mg/dLVery High Triglyceride: greater than or equal to 5OO mg/dL Cholesterol 174 <200 mg/dL [facility] Comment:Desirable Cholestero l: less than 200 mg/dLBorderline High Cholesterol: 200-239 mg/dLHigh Cholesterol: greater than 239 mg/dL LDL Cholesterol Calculated 105(H) <100 mg/dL [facility] Comment:Desirable LDL: less than 100 mg/dLNear Optimal/Above Optimal LDL: 110- 129 mg/dLBorderline High LDL: 130-159 mg/dLHigh LDL: 160-189 mg/dLVery High LDL: greater than or equal to 190 mg/dL HDL Cholesterol 51 >40 mg/dL [facility] Comment:Desirable HDL: great er than 40 mg/dL Note: This HDL assay may give artificially low results in patients with liver disease. Blood Venous blood specimen / Unknown 10/29/2024 9:44 AM EDT 10/29/2024 11:45 AM EDT [facility] [employer] LAB BLOOD ORDERABLES Final Re sult Performing Organization Address City/[facility]/ZIP Co de Phone Number [facility] [address] [place] [address] [phone] * (ABNORMAL) Basic Metabolic Panel (10/29/2024 9:44 AM EDT) Sodium 143 135 - 145 mmol/L [facility] Potassium 4.4 3.3 - 5.1 mmol/L [facility] Chloride 106 96 - 108 mmol/L [facility] Carbon Dioxide 29 22 - 29 mmol/L [facility] Anion Gap 12 12 - 20 [facility] Urea Nitrogen (BUN) 19(H) 9 - 16 mg/dL [facility] Creatinine, Serum 1.07 0.5 - 1.4 mg/dL [facility] Estimated Glomerular Filt Rate >60 [facility] Comment:Chronic Kidney Disea se: Estimated GFR < 60 mL/min/1.92n8Gvyqld Kidney Disease: Estimated GFR < 15 mL/min/1.73m2 Glucose 135(H) 60 - 115 mg/dL [facility] Calcium 10.1 8.4 - 10.2 mg/dL [facility] Blood Venous blood specimen / Unknown 10/29/2024 9:44 AM EDT 10/29/2024 11:45 AM EDT [facility] LAB BLOOD ORDERABLES Final Re sult [facility] [address] [place] [phone] * Hm Colonoscopy (07/02/2024 2:27 PM EST) [facility] Provider HEALTH MAINTENANCE Final Result * Referral to Optometry (07/28/2023) [facility] OUTPATIENT REFERRAL ORDERABLE S Final Result * HEPATITIS PANEL, ACUTE W/REFLEX TO CONFIRMATION (03/10/2020 2:16 PM EDT) HEPATITIS B CORE ANTIBODY (IGM) NON-REACT [facility] NON-[facility]ACT [facility] HEPATITIS B SURFACE ANTIGEN NON-REACT [facility] NON-[facility] HEPATITIS A IGM NON-REACT [facility] NON-REACT [facility] Comment: For additional information, please refer to http://education.[employer]/faq/VIY929 (This link is being provided for informational/ educational purposes only.) HEPATITIS C ANTIBODY NON-REACT [facility] NON-REACT [facility] INDEX 0.01 <1.00 [facility] Comment: HCV antibody was non-reactive. There is no laboratory evidence of HCV infection. In most cases, no further action is required. However, if recent HCV exposure is suspected, a test for HCV RNA (test code 08345) is suggested. For additional information please refer to http://[employer]/faq/PQB42h0 (This link is being provided for informational/ educational purposes only.) HEPATITIS B CORE ANTIBODY (IGM) NON-REACT [facility] NON-REACT [facility] HEPATITIS B CORE ANTIBODY (IGM) NON-REACT [facility] NON-[facility]ACT [facility] HEPATITIS B CORE ANTIBODY (IGM) NON-REACT [facility] NON-[facility] HEPATITIS C ANTIBODY NON-REACT [facility] NON-REACT [facility] INDEX 0.01 <1.00 [facility] Comment: HCV antibody was non-reactive. There is no laboratory evidence of HCV infection. In most cases, no further action is required. However, if recent HCV exposure is suspected, a test for HCV RNA (test code 08079) is suggested. For additional information please refer to http://[employer]/faq/WWR33h6 (This link is being provided for informational/ educational purposes only.) HEPATITIS A IGM NON-REACT [facility] NON-REACT [facility] Comment: For additional information, please refer to http://[employer]/faq/UFK029 (This link is being provided for informational/ educational purposes only.) HEPATITIS A IGM NON-REACT [facility] NON-[facility] Comment: For additional information, please refer to http://[employer]/faq/XGJ075 (This link is being provided for informational/ educational purposes only.) HEPATITIS B SURFACE ANTIGEN NON-REACT [facility] NON-[facility]ACT [facility] HEPATITIS B SURFACE ANTIGEN NON-REACT [facility] NON-[facility]ACT [facility] HEPATITIS C ANTIBODY NON-REACT [facility] NON-[facility] INDEX 0.01 <1.00 [facility] Comment: HCV antibody was non-reactive. There is no laboratory evidence of HCV infection. In most cases, no further action is required. However, if recent HCV exposure is suspected, a test for HCV RNA (test code 56304) is suggested. For additional information please refer to http://[employer]/faq/ARV05l7 (This link is being provided for informational/ educational purposes only.) HEPATITIS A IGM NON-REACT [facility]ICKIE NON-REACT [facility] Comment: For additional information, please refer to http://[employer]/faq/PQX993 (This link is being provided for informational/ educational purposes only.) HEPATITIS B SURFACE ANTIGEN NON-REACT [facility] NON-[facility] HEPATITIS C ANTIBODY NON-REACT [facility] NON-REACT [facility] INDEX 0.01 <1.00 [facility] Comment: HCV antibody was non-reactive. There is no laboratory evidence of HCV infection. In most cases, no further action is required. However, if recent HCV exposure is suspected, a test for HCV RNA (test code 99993) is suggested. For additional information please refer to http://[employer]/faq/ZZI48r5 (This link is being provided for informational/ educational purposes only.) 03/10/2020 2:16 PM EDT us Micah Bentley [facility] HISTORICAL/NON ORDERA BLE LABS Final Result [facility] [address] [address] * HIV 1/2 ANTIGEN/ANTIBODY,FOURTH GENERATION W/RFL (03/10/2020 2:16 PM EDT) HIV-1/2 ANTIGEN AND ANTIBODIES, 4TH GENERATION W/ REFLEX NON-REACT MICKIE NON-REACT MICKIE [facility] Comment: HIV-1 antigen and HIV-1/HIV-2 antibodies were not detected. There is no laboratory evidence of HIV infection. PLEASE NOTE: This information has been disclosed to you from records whose confidentiality may be protected by state law. If your state requires such protection, then the state law prohibits you from making any further disclosure of the information without the specific written consent of the person to whom it pertains, or as otherwise permitted by law. A general authorization for the release of medical or other information is NOT sufficient for this purpose. For additional information please refer to http://[employer]/faq/CJK766 (This link is being provided for informational/ educational purposes only.) The performance of this assay has not been clinically validated in patients less than 2 years old. HIV-1/2 ANTIGEN AND ANTIBODIES, 4TH GENERATION W/ REFLEX NON-REACT MICKIE NON-REACT MICKIE [facility] Comment: HIV-1 antigen and HIV-1/HIV-2 antibodies were not detected. There is no laboratory evidence of HIV infection. PLEASE NOTE: This information has been disclosed to you from records whose confidentiality may be protected by state law. If your state requires such protection, then the state law prohibits you from making any further disclosure of the information without the specific written consent of the person to whom it pertains, or as otherwise permitted by law. A general authorization for the release of medical or other information is NOT sufficient for this purpose. For additional information please refer to http://Slinky/faq/SBH563 (This link is being provided for informational/ educational purposes only.) The performance of this assay has not been clinically validated in patients less than 2 years old. HIV-1/2 ANTIGEN AND ANTIBODIES, 4TH GENERATION W/ REFLEX NON-REACT MICKIE NON-REACT MICKIE [facility] Comment: HIV-1 antigen and HIV-1/HIV-2 antibodies were not detected. There is no laboratory evidence of HIV infection. PLEASE NOTE: This information has been disclosed to you from records whose confidentiality may be protected by state law. If your state requires such protection, then the state law prohibits you from making any further disclosure of the information without the specific written consent of the person to whom it pertains, or as otherwise permitted by law. A general authorization for the release of medical or other information is NOT sufficient for this purpose. For additional information please refer to http://[employer]/faq/LXC479 (This link is being provided for informational/ educational purposes only.) The performance of this assay has not been clinically validated in patients less than 2 years old. HIV-1/2 ANTIGEN AND ANTIBODIES, 4TH GENERATION W/ REFLEX NON-REACT MICKIE NON-REACT MICKIE [facility] Comment: HIV-1 antigen and HIV-1/HIV-2 antibodies were not detected. There is no laboratory evidence of HIV infection. PLEASE NOTE: This information has been disclosed to you from records whose confidentiality may be protected by state law. If your state requires such protection, then the state law prohibits you from making any further disclosure of the information without the specific written consent of the person to whom it pertains, or as otherwise permitted by law. A general authorization for the release of medical or other information is NOT sufficient for this purpose. For additional information please refer to http://[employer]/faq/NWI481 (This link is being provided for informational/ educational purposes only.) The performance of this assay has not been clinically validated in patients less than 2 years old. HIV-1/2 ANTIGEN AND ANTIBODIES, 4TH GENERATION W/ REFLEX NON-REACT MICKIE NON-REACT MICKIE [facility] Comment: HIV-1 antigen and HIV-1/HIV-2 antibodies were not detected. There is no laboratory evidence of HIV infection. PLEASE NOTE: This information has been disclosed to you from records whose confidentiality may be protected by state law. If your state requires such protection, then the state law prohibits you from making any further disclosure of the information without the specific written consent of the person to whom it pertains, or as otherwise permitted by law. A general authorization for the release of medical or other information is NOT sufficient for this purpose. For additional information please refer to http://[employer]/faq/PDJ781 (This link is being provided for informational/ educational purposes only.) The performance of this assay has not been clinically validated in patients less than 2 years old. 03/10/2020 2:16 PM EDT us Micah Bentley DRAFTER LAB BLOOD ORDERABLES Final Result [facility] [address] from Last 3 Months or Most Recently Relevant to Health Maintenance Insurance [facility] [phone] [facility] [address] Care Teams Business Advisor Relationship Specialty Start Date End Date Kala Rizzo FNP [address] [place] [phone] PCP - General Family Medicine 10/22/21
== END 2025-01-28 09:32 | disposition home or self-care (01) ==
LOC: HO.HUSH 07:26
PROVIDERS: PCP Registered Nurse; Visit Provider Nurse Practitioner Family
DX: E29.1 Testicular hypofunction (principal); R68.82 Decreased libido
CPT/HCPCS: 99214

== ENCOUNTER 2025-02-06 08:47 | Outpatient (REF) | payer OTHER, SELFPAY ==
--- OUTSIDE RECORDS SUMMARY | 2025-02-05 09:15 | XMS_ITS | Encounter Summary ---
Author Organization [employer] Address [address] [place] [address] [address] [place] [address] Care Team Providers Care Guard Driver Name Role Phone Kala Rizzo Primary Care Provider [phone] Reason for Referral * Consultation (Routine) - Authorized Specialty Diagnoses / Procedures Referred By Александр cruz Referred To Contact Family Medicine Diagnoses Skin lesion Kala Rizzo FNP [address] [place] [address] Phone: tel: fax: Referral ID Status Reason Start Date Expiration Date Visits Requested Visits Authorized [id number] Authorized Specialty Services Required 02/05/2025 02/05/2026 1 1 Reason for Visit * Reason Comments Follow-up Diabetes Encounter Details Date Type Department Care Team (Late st Contact Info) Description 02/05/2025 9:15 AM EDT Office Visit [facility] MEDICINE [address] [place] [address] Kala Rizzo FNP [address] [place], [place] [phone] Tinea pedis of both feet (Primary Dx); Type 2 diabetes mellitus without complication, without long-term current use of insulin (CMS/HCC); Skin lesion; Encounter for immunization Social History Tobacco Use Types Packs/Day Years Used Date Smoking Tobacco: Never Passive Smoke Exposure: Never Smokeless Tobacco: Never Tobacco Cessation:Counseling Given: Not Answered Alcohol Use Standard Drinks/Week Comments Never 0 (1 standard drink = 0.6 oz pur e alcohol) Depression Answer Date Recorded Patient Health Questionnaire-9 Score 0 02/05/2025 Patient Health Questionnaire-9 Score 0 02/05/2025 Last PHQ-9: Questionnaire Data Not on file 0 02/05/2025 Housing Stability Answer Date Recorded What is your housing situation today? I have [employer] 02/05/[address] you li ve. Do you have problems with any of the following? None of the above 02/05/2025 Food Insecurity Answer Date Recorded Within the past 12 months, y ou worried that your food would run out before you got money to buy more: Never True 02/05/2025 Within the past 12 months,th e food you bought just didn't last and you didn't have enough money to get more: Never True Transportation Answer Date Recorded In the past 12 months, has l ack of transportation kept you from medical appts, meetings, work or from getting things needed for daily living? No 02/05/2025 Utilities Answer Date Recorded In the past 12 months, has t he electric, gas, oil or water company threatened to shut off services in your home? No 02/05/2025 Depression Answer Date Recorded Patient Health Questionnaire-2 Score 0 02/05/2025 Internet Access Answer Date Recorded Internet Access Q1 Yes 02/05/2025 Internet Access Q2 Not on file 02/05/2025 Sex and Gender Information Value Date Recorded Sex Assigned at Male 03/14/2022 10:37 AM EDT Legal Sex Male 10:37 AM EDT Gender Identity Male 03/14/2022 10:37 AM EDT Sexual Orientation Straight 03/14/2022 10 :37 AM EDT documented as of this encounter Last Filed Vital Signs Vital Sign Reading Time Taken Comments Blood Pressure 118/80 02/05/2025 9:01 AM EDT Pulse 84 02/05/2025 9:01 AM EDT Temperature 36.2 C (97.2 F) 02/05/2025 9:01 AM EDT Respiratory Rate 20 02/05/2025 9:01 AM EDT Oxygen Saturation - - Inhaled Oxygen Concentration - - Weight 92.1 kg (203 lb) 02/05/2025 9:01 AM EDT Height 190.5 cm (6' 3 ) 02/05/2025 9:01 AM EDT Body Mass Index 25.37 02/05/2025 9:01 AM EDT documented in this encounter Functional Status * Over the past 2 weeks, how often have you been bothered by any of the following problems? Question Answer Date of Assessment Author Patient Health Questionnaire-2 Score 0 02/05/2025 9:14 AM EDT Marcella Horne MA * Little interest or pleasure in doing things Answer Date of Assessment Author Not at all 02/05/2025 9:14 AM EDT Marcella Claudio MA * Feeling down, depressed, or hopeless Answer Date of Assessment Author Not at all 02/05/2025 9:14 AM EDT Marcella Claudio MA * Trouble falling or staying asleep, or sleeping too much Answer Date of Assessment Author Not at all 02/05/2025 9:14 AM EDT Marcella Claudio MA * Feeling tired or having little energy Answer Date of Assessment Author Not at all 02/05/2025 9:14 AM EDT Marcella Claudio MA * Poor appetite or overeating Answer Date of Assessment Author Not at all 02/05/2025 9:14 AM FLORENCIOT Marcella Claudio MA * Feeling bad about yourself - or that you are a failure or have let yourself or your family down Answer Date of Assessment Author Not at all 02/05/2025 9:14 AM Marcella Luna MA * Trouble concentrating on things, such as reading the newspaper or watching television Answer Date of Assessment Author Not at all 02/05/2025 9:14 AM EDT Marcella Claudio MA * Moving or speaking so slowly that other people could have noticed? Or the opposite - being so fidgety or restless that you have been moving around a lot more than usual. Answer Date of Assessment Author Not at all 02/05/2025 9:14 AM Marcella Luna MA * Thoughts that you would be better off or hurting yourself in some way Answer Date of Assessment Author Not at all 02/05/2025 9:14 AM EDT Marcella Claudio MA * Patient Health Questionnaire-9 Score Answer Date of Assessment Author 0 02/05/2025 9:14 AM FLORENCIOT Marcella Claudio MA * Over the last 2 weeks, how often have you been bothered by any of the following problems? Question Answer Date of Assessment Author Feeling nervous, anxious, or on edge 0 02/05/2025 9:14 AM EDT Marcella Horne MA Not being able to stop or control worrying 0 02/05/2025 9:14 AM EDT Marcella Horne MA Worrying too much about different things 0 02/05/2025 9:14 AM EDT Marcella Horne MA Trouble relaxing 0 02/05/2025 9:14 AM EDT Marcella Burton MA Being so restless that it is hard to sit still 0 02/05/2025 9:14 AM EDT Marcella Horne MA Becoming easily annoyed or irritable 0 02/05/2025 9:14 AM EDT Marcella Horne MA Feeling afraid as if something awful might happen 0 02/05/2025 9:14 AM EDT Marcella Zamudio MA GLORIA-7 Total Score 0 02/05/2025 9:14 AM EDT Marcella Horne MA documented as of this encounter Plan of Treatment Scheduled Referrals Name Type Priority Associated Diagnoses Orde r Schedule Referral to [facility] Derm Skin Adult Outpatient Referral Routine Skin lesion Expected: 02/05/2025 (Approximate), Expires: 02/05/2026 documented as of this encounter Procedures Procedure Name Priority Date/Time Associated Diagnosis Comments POCT GLUCOSE Routine 02/05/2025 9:16 AM EDT Type 2 diabetes mellitus without complication, without long-term current use of insulin ([facility]) documented in this encounter Results * POCT Glucose (02/05/2025 9:16 AM EDT) Glucose Blood, POC 160 60 - 200 mg/dL QC Media Lot # [id number] Lot# Expiration Date ,833,026 Blood Capillary blood specimen / Unknown 02/05/2025 9:16 AM EDT [facility] POINT OF CARE TEST ENTER/EDIT ORDERABLES Final Result documented in this encounter Visit Diagnoses Diagnosis Tinea pedis of both feet- Primary Type 2 diabetes mellitus without complication, without long-term current use of insulin ([facility]) Skin lesion Unspecified disorder of skin and subcutaneous tissue Encounter for immunization documented in this encounter Additional Health Concerns Assessment Noted Time PHQ-9 Depression Total Score: 0 02/06/20 9:14 AM EDT documented as of this encounter Care Teams Guard Driver Relationship Specialty Start Date End Date [facility] OLIVE Armendariz [address] [place] [id number] PCP - General Family Medicine 10/22/21 documented as of this encounter
--- OUTSIDE RECORDS SUMMARY | 2025-02-06 09:24 | XMS_ITS | Encounter Summary ---
Author Organization [employer] Address [address] [facility] 7 [place] [address] Care Team Providers Care Steam Turbine Assembler Name Role Phone [facility] Primary Care Provider [phone] Reason for Visit * Reason Onset Date Comments Med Refill 03/24/2024 Encounter Details Date Type Department Care Team (Late st Contact Info) Description 03/24/2024 Refill [facility] MED[facility]INE [address] [place], [place] [phone] [facility] [address] [place], [place] [phone] Mixed hyperlipidemia; Type 2 diabetes mellitus without complication, without long-term current use of insulin ([facility]); Erectile dysfunction, unspecified erectile dysfunction type Social [...] complication, without long-term current use of insulin ([facility]) Erectile dysfunction, unspecified erectile dysfunction type documented in this encounter Additional Health Concerns Assessment Noted Time PHQ-9 Depression Total Score: 0 01/26/20 24 9:15 AM EDT documented as of this encounter Care Teams Steam Turbine Assembler Relationship Specialty Start Date End Date Kala Rizzo FNP [address] [place] [phone] PCP - General Family Medicine 10/22/21 documented as of this encounter
--- OUTSIDE RECORDS SUMMARY | 2025-02-06 09:24 | XMS_ITS | Encounter Summary ---
Author Organization [employer] Address [address] [facility] 7 [place] [address] Care Team Providers Care Financial Services Director Name Role Phone [facility] Primary Care Provider [phone] Reason for Visit * Reason Onset Date Comments Med Refill 06/29/2024 Encounter Details Date Type Department Care Team (Late st Contact Info) Description 06/29/2024 Refill [facility] MED[facility]INE [address] [place], [place] [phone] [facility] [address] [place], [place] [phone] Social History Tobacco Use Types Packs/Day Years [...] documented as of this encounter Care Teams Financial Services Director Relationship Specialty Start Date End Date Kala Rizzo FNP [address] [place] [id number] PCP - General Family Medicine 10/22/21 documented as of this encounter
--- OUTSIDE RECORDS SUMMARY | 2025-02-06 09:24 | XMS_ITS | Encounter Summary ---
Author Organization [employer] Address [address] [facility] 7t [place] [address] Care Team Providers Care Pediatric Occupational Therapist Name Role Phone Kala Rizzo [facility] Primary Care Provider [phone] Encounter Details Date Type Department Care Team ([facility] st Contact Info) Description 03/31/2023 Abstract [facility] MEDICINE [address] [place] [address] Lori Mccray Social History Tobacco Use Types [...] documented as of this encounter Care Teams Pediatric Occupational Therapist Relationship Specialty Start Date End Date Kala Rizzo FNP [address] [place] [phone] PCP - General Family Medicine 10/22/21 documented as of this encounter
--- OUTSIDE RECORDS SUMMARY | 2025-02-06 09:24 | XMS_ITS | Encounter Summary ---
Author Organization [employer] Address [address] [place] [address] 7 [place] [address] Care Team Providers Care Cooperage Shop Supervisor Name Role Phone [facility] Primary Care Provider [phone] Reason for Visit * Reason Comments Med Refill Encounter Details Date Type Department Care Team (Late st Contact Info) Description 08/29/2022 Refill [facility] [address] [place], [place] [phone] [facility] [address] [place] [address] Type 2 diabetes mellitus without complication, without [...] documented as of this encounter Care Teams Cooperage Shop Supervisor Relationship Specialty Start Date End Date Kala Rizzo FNP [address] [place] [id number] PCP - General Family Medicine 10/22/21 documented as of this encounter
--- OUTSIDE RECORDS SUMMARY | 2025-02-06 09:24 | XMS_ITS | Encounter Summary ---
Author Organization [employer] Address [address] [facility] 7t [place] [address] Care Team Providers Care Change Lead Name Role Phone Kala Rizzo [employer] Primary Care Provider [phone] Encounter Details Date Type Department Care Team (Late st Contact Info) Description 07/03/2024 Orders Only [facility] MEDICINE [address] [place] [address] Provider, MD Valerie Social History Tobacco Use [...] documented as of this encounter Care Teams Change Lead Relationship Specialty Start Date End Date Kala Rizzo FNP [address] [place] [phone] PCP - General Family Medicine 10/22/21 documented as of this encounter
--- OUTSIDE RECORDS SUMMARY | 2025-02-06 09:24 | XMS_ITS | Clinical Summary ---
Author Organization [facility] [facility] Address [address] [place] [address] Care Team Providers Care Otc Clerk Name Role Phone Barrie Pink MD Primary Care Provider [phone] Allergies No known active allergies Medications multivitamin/ir [...] Final Result * (ABNORMAL) Lipid panel (04/10/2015) [facility] LDL/HDL Ratio 5(A) 0 - 4 Triglycerides 185(A) 0 - 150 mg/dL Cholesterol 184 0 - 200 mg/dL HDL 35(A) >=40 mg/dL LDL Cholesterol 112(A) 0 - 100 mg/dL Blood Venous blood specimen / Unknown Historical Provider LAB BLOOD ORDERABLES Viridiana l Result * Colonoscopy (12/22/2014) [facility] Colonoscopy no interpretation , abstracted Anatomical Region Laterality Modality Other [facility] Provider HEALTH MAINTENANCE Final Result * HIV Screening (02/23/2004) [facility] HIV Screening ABSTRACTED [facility] Provider HEALTH MAINTENANCE Final Result from Last 3 Months or Most Recently Relevant to Health Maintenance Care Teams Otc Clerk Relationship Specialty Start Date End Date Barrie Pink MD [address] [place] [id number] PCP - General Internal Medicine 08/11/14
--- OUTSIDE RECORDS SUMMARY | 2025-02-06 09:24 | XMS_ITS | Encounter Summary ---
Author Organization [employer] Address [address] [facility] 7 [place] [address] Care Team Providers Care Director Of Sustainable Design Name Role Phone [facility] Primary Care Provider [phone] Reason for Visit * Reason Onset Date Comments chart prep 02/03/2025 Encounter Details Date Type Department Care Team ([facility] st Contact Info) Description 02/03/2025 Telephone [facility] MED[facility]INE [address] [place], [place] [phone] [facility] [address] [place], [place] [phone] chart prep Social History Tobacco Use Types Packs/Day Years Used Date Smoking Tobacco: Never Passive Smoke Exposure: Never Smokeless Tobacco: Never Alcohol Use Standard [...] AM EDT documented as of this encounter Miscellaneous Notes * Telephone Encounter - Marcella Horne MA - 02/03/2025 9:56 AM EDT Chart Prep Labs: done Images: done Referrals: complete Vaccines due: Flu Screenings: foot exam Overdue care gaps: Glucose, PHQ-9, and GLORIA-7 documented in this encounter Plan of Treatment Not on file documented as of this encounter Visit Diagnoses Not on filedocumented in this encounter Additional Health Concerns Assessment Noted Time PHQ-9 Depression Total Score: 0 07/16/19 25 9:40 AM EST documented as of this encounter Care Teams Director Of Sustainable Design Relationship Specialty Start Date End Date Kala Rizzo FNP [address] [place] [id number] PCP - General Family Medicine 10/22/21 documented as of this encounter
--- OUTSIDE RECORDS SUMMARY | 2025-02-06 09:24 | XMS_ITS | Encounter Summary ---
Author Organization [employer] Address [address] [facility] 7 [place] [address] Care Team Providers Care Boiler Repair Supervisor Name Role Phone [facility] Primary Care Provider [phone] Reason for Visit * Reason Onset Date Comments Med Refill 08/13/2023 Encounter Details Date Type Department Care Team (Late st Contact Info) Description 08/13/2023 Refill [facility] [address] [place], [place] [phone] [facility] 230 [place], [place] [phone] Type 2 diabetes mellitus without complication, without long-term current use of insulin ([facility]) Social History Tobacco Use Types [...] complication, without long-term current use of insulin ([facility]) documented in this encounter Additional Health Concerns Assessment Noted Time PHQ-9 Depression Total Score: 0 07/21/19 24 9:18 AM EST documented as of this encounter Care Teams Boiler Repair Supervisor Relationship Specialty Start Date End Date Kala Rizzo FNP [address] [place] [id number] PCP - General Family Medicine 10/22/21 documented as of this encounter
--- OUTSIDE RECORDS SUMMARY | 2025-02-06 09:24 | XMS_ITS | Encounter Summary ---
Author Organization [employer] Address [address] [facility] 7[address] [place] [address] Care Team Providers Care Sewer Line Photo Inspector Name Role Phone Kala Rizzo [facility] Primary Care Provider [phone] Encounter Details Date Type Department Care Team (Latest Contact Info) Description 02/05/2025 Travel Social History Tobacco Use Types Packs/Day Years [...] AM EDT documented as of this encounter Functional Status * Over the [...] 9:14 AM FLORENCIOT Marcella Claudio MA * Trouble falling or staying asleep, or sleeping too much Answer Date of Assessment Author Not at all 02/05/2025 9:14 AM Marcella Luna MA * Feeling tired or having little energy Answer Date of Assessment Author Not at all 02/05/2025 9:14 AM Marcella Luna MA * Poor appetite or overeating Answer Date of Assessment Author Not at all 02/05/2025 9:14 AM Marcella Luna MA * Feeling bad about yourself - or that you are a failure or have let yourself or your family down Answer Date of Assessment Author Not at all 02/05/2025 9:14 AM Marcella Luna MA * Trouble concentrating on things, such as reading the newspaper or watching television Answer Date of Assessment Author Not at all 02/05/2025 9:14 AM Marcella Luna MA * Moving or speaking so slowly that other people could have noticed? Or the opposite - being so fidgety or restless that you have been moving around a lot more than usual. Answer Date of Assessment Author Not at all 02/05/2025 9:14 AM EDT Marcella Claudio MA * Thoughts that you would be better off or hurting yourself in some way Answer Date of Assessment Author Not at all 02/05/2025 9:14 AM EDT Marcella Claudio MA * Patient Health Questionnaire-9 Score Answer Date of Assessment Author 0 02/05/2025 9:14 AM EDT Marcella Claudio MA * Over the last [...] documented as of this encounter Care Teams Sewer Line Photo Inspector Relationship Specialty Start Date End Date So OLIVE Armendariz [address] [place] [phone] PCP - General Family Medicine 10/22/21 documented as of this encounter
--- OUTSIDE RECORDS SUMMARY | 2025-02-06 09:24 | XMS_ITS | Clinical Summary ---
Author Organization [employer] Address [address] [facility] 7 [place] [address] Care Team Providers Care Auxiliary Operator Name Role Phone Kala Rizzo [facility] Primary Care Provider [phone] Allergies No known active allergies Medications Diclofenac [...] complication, without long-term current use of insulin (CMS/[facility]) Take 1 tablet (10 mg) by mouth [...] SUGAR THREE TIMES A DAY 100 each 11 03/28/2 025 Active ketoconazole (NIZOral) 2 % creamIndications: Tinea cruris Apply topically Once per day. For 14 days. 20 g Active empagliflozin (Jardiance) 25 MGIndications:Typ e 2 diabetes mellitus without complication, without long-term current use of insulin ([facility]) Take 1 tablet (25 mg) by mouth Once per day. 30 tablet 11 025 2025 Active clotrimazole (Lotrimin) 1 % creamIndications: Tinea pedis of both feet Apply topically 2 times daily for 28 days. 60 g 5 025 2024 Active betamethasone valerate (Valisone) 0.1 % creamIndications: [...] lifting - Previously seen by chiropractor at [facility] - No numbness, tingling, loss of bowel/bladder function - No imaging on file Healthcare maintenance 04/29/2022 Overview (01/26/2024): C-Scope: Upcoming appt. 2024. Every 3 years-tubular adenoma. [facility] PSA:.41 06/2023 Vision Exam: Referred 07/2023 Dental Care: UTD Immunizations: UTD Assessment & Plan (07/24/2023 9:47 PM EDT): Referral to GI for repeat CRC screening Dental referral Vision referral Accepts updated COVID vaccine Assessment & Plan (05/04/2022 1:51 PM EST): C-Scope: 03/2021 at [facility], polpys repeat due 3-5 years PSA: Ordered today HCV Screen: Neg 2019 HIV Screen: Neg 2019 STI Screening: Declines Vision Exam: 05/2021 [place] Dental Care: Will establish at [facility] Immunizations: Needs shingles in pharmacy. Otherwise UTD [...] to b.I.d if tolerating well Referral to [facility] Nutrition Assessment & Plan (06/23/2023 10:12 AM [...] - Working with DM RN Educator at [facility] BMP: Ordered today Microalbumin: Ordered today Foot Exam: 01/2022, Risk 0 Eye Exam: [place] 05/2021 Lipid panel: Ordered today ASCVD: Calculate [...] Encounters Date Type Department Care Team Description 02/05/2025 9:15 AM EDT Office Visit [facility] MEDICINE [address] [place] [phone] Kala Rizzo FNP Tinea pedis of both feet (Primary Dx); Type 2 diabetes mellitus without complication, without long-term current use of insulin ([facility]); Skin lesion; Encounter for immunization 02/05/2025 Travel 02/03/2025 Telephone [facility] MEDICINE [address] [place] [phone] Kala Rizzo FNP chart prep 01/29/2025 Patient Outreach [address] [phone] Kala Rizzo FNP Pre-visit Planning ((Unable to reach for PVP screening, LVM) to be completed in office ) 01/10/2025 10:30 AM EDT Office Visit [facility] MEDICINE [address] [place] [address] Reyna Dutta NP Type 2 diabetes mellitus without complication, without long-term current use of insulin ([facility]) (Primary Dx); Enedelia boss 01/10/2025 Travel 01/09/2025 Travel 01/09/2025 Telephone [facility] MEDICINE [address] [place] [address] Nohemi Cai [place] CHARTPREP 01/09/2025 Telephone [facility] MEDICINE [address] [place] [address] [facility], [facility] 12/23/2024 Orders Only GENERIC EXTERNAL DATA DEPARTMENT Provider, Generic External Data from Last 3 Months Immunizations Immunization Administration Dates Next Due Influenza injectable quadriv alent preservative free 04/29/2022,05/22/2020 Influenza, seasonal, injecta ble, preservative free 02/05/2025,01/26/2024 Moderna Covid-19 Vaccine 12+ 05/03/2021,09/19/19 21,08/21/2020 Pfizer [...] 20 02/05/2025 9:01 AM EDT Oxygen Saturation 98% 01/10/2025 10:34 AM EDT Inhaled Oxygen Concentration - - Weight 92.1 kg (203 lb) 02/05/2025 9:01 AM EDT Height 190.5 cm (6' 3 ) 02/05/2025 9:01 AM EDT Body Mass Index 25.37 02/05/2025 9:01 AM EDT Plan of Treatment Health Maintenance Due Date Last Done Comments CT Colonography 1964 FIT DNA/Cologuard 1964 FIT 1964 FOBT 1964 Sigmoidoscopy 1964 Diabetes: Foot Exam 10/24/2024 10/25/2023, 10/25/2023, 10/25/2023, Additional history exists Diabetes: Hemoglobin A1C 04/12/2025 025, 10/29/2024, 07/15/2024, Additional history exists Eye Exam 07/27/2025 07/28/2023, 05/2023, 05/15/2021 Diabetes: Urine Protein Screening 10/29/2025 10/29/2024, 06/30/2023, 06/03/2020 Lipid Panel 10/29/2025 10/29/2024, 06/15, 06/03/2020, Additional history exists Disability Screening 01/10/2026 01/10/2025 Alcohol/Substance Use Screening 02/05/2026 02/05/2025 Depression Screening 02/05/2026 02/05/2025, 02/06/20 25 SDOH Screening 02/05/2026 02/05/2025 Tobacco Screening 02/05/2026 02/05/2025 Colonoscopy 07/02/2027 07/02/2024, 03/26/2021 Colorectal Cancer Screening 07/02/2027 DTaP/Tdap/Td Vaccines (3 - Td or Tdap) 05/22/2030 05/22/2020, 11/05/2014 RSV Patients and Patients Aged 60 years or older (1 - 1-dose 75+ series) 2039 HIV Screening Discontinued 03/10/2020 Hepatitis C Screening Discontinued 03/10/2020 Zoster Vaccines Completed 04/29/2022, 01/24/2022 COVID-19 Vaccine Completed 07/15/2024, 12/2023, 04/29/2022, Additional history exists Pneumococcal Vaccine: 50+ Years Completed 07/15/2024 Influenza Vaccine Completed 02/05/2025, , 04/29/2022, Additional history exists HIB Vaccines Aged Out No longer eligi [...] complication, without long-term current use of insulin ([facility]) POCT GLYCATED HEMOGLOBIN, TOTAL Routine 01/10/2025 10:42 AM EDT Type 2 diabetes mellitus without complication, without long-term current use of insulin ([facility]) POCT GLUCOSE Routine 01/10/2025 10:36 AM EDT Type 2 diabetes mellitus without complication, without long-term current use of insulin ([facility]) ESTRADIOL, FREE Routine 12/23/2024 9:25 AM EDT TESTOSTERONE, FREE (DIALYSIS) AND TOTAL,MS Routine 12/23/2024 9:25 AM EDT SEX HORMONE BINDING GLOBULIN Routine 12/23/2024 9:25 AM EDT PROLACTIN Routine 12/23/2024 9:25 AM EDT LH Routine 12/23/2024 9:25 AM EDT FSH Routine 12/23/2024 9:25 AM EDT PSA, TOTAL Routine 12/23/2024 9:25 AM EDT ALBUMIN, RANDOM URINE W/CREATININE Routine 10/29/2024 9:44 AM EDT Type 2 diabetes mellitus without complication, without long-term current use of insulin (CMS/HCC) LIPID PANEL, STANDARD Routine 10/29/2024 9:44 AM [...] Recently Relevant to Health Maintenance Results * POCT Glucose (02/05/2025 9:16 AM EDT) Only the most recent of2 resultswithin the time period is included. Glucose Blood, POC 160 60 - 200 mg/dL QC Media Lot # [id number] Lot# Expiration Date [id number] Blood Capillary blood specimen / Unknown 02/05/2025 9:16 AM EDT [facility] MACHINE OPERATOR REPLANTER POINT OF CARE TEST ENTER/EDIT ORDERABLES Final Result * (ABNORMAL) POCT HGB A1C (01/10/2025 10:42 AM EDT) Hemoglobin A1C 7.4(A) 4.0 - 5.7 % QC Media Lot # [id number] Lot# Expiration Date [id number] Blood 01/10/2025 10:4 2 AM EDT Reyna Dutta NP POINT OF CARE TEST ENTER/EDIT OR DERABLES Final Result * (ABNORMAL) Estradiol, Free (12/23/2024 9:25 AM EDT) Estradiol, Free 0.49(A) pg/mL [facility] Comment:Reference Range:ADUL TS: < OR = 0.45 Estradiol, Ultrasensitive, LC/MS 21 < OR = 29 pg/mL [facility] Comment:This test was develo ped and its analytical performancecharacteristics have been determined by [facility].It has not been cleared or approved by the FDA. This assayhas been validated pursuant to the CLIA regulations and isused for clinical purposes.THIS TEST WAS PERFORMED AT:[facility] [id number] [place] [address]EYFFFJIMENEZ LINDA MD,PHD,WENDY 12/23/2024 9:25 AM EDT 12/23/2024 11:18 AM EDT Generic External Data Provider LAB BLOOD ORDERAB LES Final Result Performing Organization Address [facility] Co de Phone Number [facility] [address] [place] [phone] * (ABNORMAL) Sex Hormone Binding Globulin (SHBG) (12/23/2024 9:25 AM EDT) Sex Hormone Binding Globulin 14(A) 22 - 77 nmol/L [facility] Comment:THIS TEST WAS PERFOR MED AT:[facility] [address] [phone] LAUGHLIN MD 12/23/2024 9:25 AM EDT 12/23/2024 11:18 AM EDT Generic External Data Provider LAB BLOOD ORDERAB LES Final Result Performing Organization Address [facility] Co de Phone Number [facility] [address] [place] [phone] * Prolactin (12/23/2024 9:25 AM EDT) Prolactin 3.8 2.0 - 18.0 ng/mL [facility] Comment:THIS TEST WAS PERFOR MED AT:[facility] [place] [id number] LAUGHLIN MD 12/23/2024 9:25 AM EDT 12/23/2024 11:18 AM EDT us Generic External Data Provider LAB BLOOD ORDERAB LES Final Result [facility] [address] [place] [address] [phone] * Testosterone, Free (Dialysis) And Total, MS (12/23/2024 9:25 AM EDT) Testosterone, Total 266 250 - 1100 ng/dL [facility] Comment:For additional infor zaina, please refer tohttp://education.BioAx[employer] Therapeutic/faq/MnqefFitnyvkpqnpsNBQKREURO483(This link is being provided for informational/educational purposes only.)This test was developed and its analytical performancecharacteristics have been determined by [facility] [place], [place]. It hasnot been cleared or approved by the U.S. Food and DrugAdministration. This assay has been validated pursuantto the CLIA regulations and is used for clinicalpurposes. Testosterone, Free 55.6 35.0 - 155.0 pg/mL [facility] Comment:This test was develo ped and its analytical performancecharacteristics have been determined by [facility] [place], [place]. It hasnot been cleared or approved by the U.S. Food and DrugAdministration. This assay has been validated pursuantto the CLIA regulations and is used for clinicalpurposes.THIS TEST WAS PERFORMED AT:[facility] [id number] [place] [address]LROSBMJMICAH CALLAHAN MD,PHD 12/23/2024 9:25 AM EDT 12/23/2024 11:18 AM EDT us Generic External Data Provider LAB BLOOD ORDERAB LES Final Result Performing Organization Address [facility] Co de Phone Number [facility] [address] [place] [phone] * PSA,Total (12/23/2024 9:25 AM EDT) Prostate Specific Antigen 0.75 <0.05 - 4.0 ng/mL [facility] Comment:PSA methodology: Abb kcai Alinity i ChemiluminescentMicroparticle Immunoassay (CMIA) 12/23/2024 9:25 AM EDT 12/23/2024 11:22 AM EDT Generic External Data Provider LAB BLOOD ORDERAB LES Final Result Performing Organization Address [facility] Co de Phone Number [facility] [address] [place] [phone] * LH (12/23/2024 9:25 AM EDT) Lutenizing Hormone 3.4 1.6 - 15.2 mIU/mL [facility] Comment:THIS TEST WAS PERFOR MED AT:[facility] [place] [address]PWXIMHAYLIE LAUGHLIN MD 12/23/2024 9:25 AM EDT 12/23/2024 11:18 AM EDT Generic External Data Provider LAB BLOOD ORDERAB LES Final Result Performing Organization Address [facility] Co de Phone Number [facility] [address] [place] [phone] * FSH (12/23/2024 9:25 AM EDT) Follicle Stimulating Hormone 3.5 1.4 - 12.8 mIU/mL [facility] Comment:THIS TEST WAS PERFOR MED AT:[facility] [place] [address]EDISSHAYLIE LAUGHLIN MD 12/23/2024 9:25 AM EDT 12/23/2024 11:18 AM EDT Generic External Data Provider LAB BLOOD ORDERAB LES Final Result Performing Organization Address [facility] Co de Phone Number [facility] [address] [place] [phone] * Albumin, Random Urine W/Creatinine (10/29/2024 9:44 AM EDT) Creatinine, Urine 70.46 mg/dL [facility] Microalbumin Urine <5.0 mg/L [facility] Microalbum Creatinine Ratio Ur TNP <30 ug/mg cr [facility] Comment:Unable to calculate albumin/creatinine ratio due to lowmicroalbumin or creatinine result. Urine 10/29/2024 9:44 AM EDT 10/29/2024 11:32 AM EDT [facility] MACHINE OPERATOR REPLANTER LAB URINE ORDERABLES Final Re sult Performing Organization Address [facility] de Phone Number [facility] [address] [place] [phone] * (ABNORMAL) Lipid Panel, Standard (10/29/2024 9:44 AM EDT) Triglycerides 94 <150 mg/dL [facility] Comment:Desirable Triglyceri de: less than 150 mg/dLBorderline High Triglyceride 150-199 mg/dLHigh Triglyceride: 200-499 mg/dLVery High Triglyceride: greater than or equal to 5OO mg/dL Cholesterol 174 <200 mg/dL [facility] Comment:Desirable Cholestero l: less than 200 mg/dLBorderline High Cholesterol: 200-239 mg/dLHigh Cholesterol: greater than 239 mg/dL LDL Cholesterol Calculated 105(H) <100 mg/dL [facility] Comment:Desirable LDL: less than 100 mg/dLNear Optimal/Above Optimal LDL: 110- 129 mg/dLBorderline High LDL: 130-159 mg/dLHigh LDL: 160-189 mg/dLVery High LDL: greater than or equal to 190 mg/dL HDL Cholesterol 51 >40 mg/dL [facility] Comment:Desirable HDL: great er than 40 mg/dL Note: This HDL assay may give artificially low results in patients with liver disease. Blood Venous blood specimen / Unknown 10/29/2024 9:44 AM EDT 10/29/2024 11:45 AM EDT [facility] LAB BLOOD ORDERABLES Final Re sult [facility] [address] [place] [phone] * Hm Colonoscopy (07/02/2024 2:27 PM EST) [facility] Provider HEALTH MAINTENANCE Final Result * Referral to Optometry (07/28/2023) [facility] OUTPATIENT REFERRAL ORDERABLE S Final Result * HEPATITIS PANEL, ACUTE W/REFLEX TO CONFIRMATION (03/10/2020 2:16 PM EDT) HEPATITIS B CORE ANTIBODY (IGM) NON-REACT MICKIE NON-REACT MICKIE [facility] HEPATITIS B SURFACE ANTIGEN NON-REACT MICKIE NON-REACT MICKIE [facility] HEPATITIS A IGM NON-REACT MICKIE NON-REACT MICKIE [facility] Comment: For additional information, please refer to http://Notizza.BioAxone Therapeutic/faq/HFC442 (This link is being provided for informational/ educational purposes only.) HEPATITIS C ANTIBODY NON-REACT MICKIE NON-REACT MICKIE [facility] INDEX 0.01 <1.00 [facility] Comment: HCV antibody was non-reactive. There is no laboratory evidence of HCV infection. In most cases, no further action is required. However, if recent HCV exposure is suspected, a test for HCV RNA (test code 70296) is suggested. For additional information please refer to http://Notizza.BioAx[employer] Therapeutic/faq/GSR46o2 (This link is being provided for informational/ [...] a test for HCV RNA (test code 06977) is suggested. For additional information please refer to http://Notizza.BioAx[employer] Therapeutic/faq/APD70m6 (This link is being provided for informational/ educational purposes only.) HEPATITIS A IGM NON-REACT MICKIE NON-REACT MICKIE [facility] Comment: For additional information, please refer to http://Piki/faq/JHH584 (This link is being provided for informational/ educational purposes only.) HEPATITIS A IGM NON-REACT MICKIE NON-REACT MICKIE [facility] Comment: For additional information, please refer to http://Piki/faq/NVU209 (This link is being provided for informational/ [...] a test for HCV RNA (test code 52854) is suggested. For additional information please refer to http://Piki/faq/GVK99n9 (This link is being provided for informational/ educational purposes only.) HEPATITIS A IGM NON-REACT MICKIE NON-REACT MICKIE [facility] Comment: For additional information, please refer to http://Piki/faq/CES392 (This link is being provided for informational/ educational purposes only.) HEPATITIS B SURFACE ANTIGEN NON-REACT MICKIE NON-REACT MICKIE [facility] HEPATITIS C ANTIBODY NON-REACT MICKIE NON-REACT MICKIE [facility] INDEX 0.01 <1.00 [facility] Comment: HCV antibody was non-reactive. There is no laboratory evidence of HCV infection. In most cases, no further action is required. However, if recent HCV exposure is suspected, a test for HCV RNA (test code 33174) is suggested. For additional information please refer to http://Notizza.Bio[employer] Therapeutic/faq/PZZ20e6 (This link is being provided for informational/ educational purposes only.) 03/10/2020 2:16 PM EDT us Micah Bentley MACHINE OPERATOR REPLANTER HISTORICAL/NON ORDERA BLE LABS Final Result [facility] [address] * HIV 1/2 ANTIGEN/ANTIBODY,FOURTH GENERATION W/RFL (03/10/2020 2:16 PM EDT) HIV-1/2 ANTIGEN AND ANTIBODIES, 4TH GENERATION W/ REFLEX NON-REACT MICKIE NON-REACT MICKIE [facility] Comment: HIV-1 antigen and [...] purpose. For additional information please refer to http://Notizza.BioAxone Therapeutic/faq/CXU803 (This link is being provided for informational/ educational purposes only.) The performance of this assay has not been clinically validated in patients less than 2 years old. HIV-1/2 ANTIGEN AND ANTIBODIES, 4TH GENERATION W/ REFLEX NON-REACT MICKIE NON-REACT MICKIE [facility] Comment: HIV-1 antigen and HIV-1/HIV-2 [...] purpose. For additional information please refer to http://Notizza.BioAxone Therapeutic/faq/GTI001 (This link is being provided for informational/ educational purposes only.) The performance of this assay has not been clinically validated in patients less than 2 years old. HIV-1/2 ANTIGEN AND ANTIBODIES, 4TH GENERATION W/ REFLEX NON-REACT MICKIE NON-REACT MICKIE [facility] Comment: HIV-1 antigen and HIV-1/HIV-2 [...] purpose. For additional information please refer to http://Notizza.BookShout!.Overdog/faq/TUU826 (This link is being provided for informational/ educational purposes only.) The performance of this assay has not been clinically validated in patients less than 2 years old. HIV-1/2 ANTIGEN AND ANTIBODIES, 4TH GENERATION W/ REFLEX NON-REACT MICKIE NON-REACT MICKIE [facility] Comment: HIV-1 antigen and HIV-1/HIV-2 [...] purpose. For additional information please refer to http://education.BioAxone Therapeutic/faq/KEB736 (This link is being provided for informational/ educational purposes only.) The performance of this assay has not been clinically validated in patients less than 2 years old. HIV-1/2 ANTIGEN AND ANTIBODIES, 4TH GENERATION W/ REFLEX NON-REACT MICKIE NON-REACT MICKIE [facility] Comment: HIV-1 antigen and [...] purpose. For additional information please refer to http://Notizza.BioAxone Therapeutic/faq/NNJ355 (This link is being provided for informational/ educational purposes only.) The performance of this assay has not been clinically validated in patients less than 2 years old. 03/10/2020 2:16 PM EDT Micah Bentley MACHINE OPERATOR REPLANTER LAB BLOOD ORDERABLES Final Result Performing Organization Address City/State/[facility] Co de Phone Number [facility] [address] from Last 3 Months or Most Recently Relevant to Health Maintenance Insurance [facility] 3 Care Teams Auxiliary Operator Relationship Specialty Start Date End Date Kala Rizzo FNP [address] [place] [phone] PCP - General Family Medicine 10/22/21
--- OUTSIDE RECORDS SUMMARY | 2025-02-06 09:24 | XMS_ITS | Encounter Summary ---
Author Organization [employer] Address [address] [facility] 7 [place] [address] Care Team Providers Care Tallow Pumper Name Role Phone [facility] Primary Care Provider [phone] Reason for Visit * Reason Comments Med Change Request Encounter Details Date Type Department Care Team ([facility] st Contact Info) Description 08/10/2023 Refill [facility] MEDICINE [address] [place], [place] [phone] [facility] [address] [place], [place] [phone] Type 2 diabetes mellitus without complication, without long-term current use of insulin ([facility]) Social History Tobacco Use Types Packs/Day Years [...] ([facility]) documented in this encounter Additional Health Concerns Assessment Noted Time PHQ-9 Depression Total Score: 0 07/21/19 24 9:18 AM EST documented as of this encounter Care Teams Tallow Pumper Relationship Specialty Start Date End Date Kala Rizzo FNP [address] [place] [phone] PCP - General Family Medicine 10/22/21 documented as of this encounter
[2025-02-12 20:23] LABS: Testosterone, Free 114.4 pg/mL (35.0-155.0)
== END 2025-02-06 08:48 | disposition home or self-care (01) ==
LOC: HO.HHCL 08:47
PROVIDERS: PCP Registered Nurse; Visit Provider Urology
DX: R68.82 Decreased libido (principal); E29.1 Testicular hypofunction
CPT/HCPCS: 36415; 83002; 84402; 84403

== ENCOUNTER 2025-03-25 14:23 | Outpatient (AMB) | payer OTHER, SELFPAY ==
--- NOTE | 2025-03-25 14:23 | A.OFFVIS_ITS ---
Intake Visit Reasons: 2m/Labs Intake Note: Patient is present for 2M/LABS Urology Medication:SILDENAFIL,TADALAFIL, CLUMIPHERE Antibiotic Allergy:NONE Blood Thinner:NONE Rn Document Improvement Required: No Allergies No Known Allergies Allergy (Verified 03/25/25 14:50) Medication List - Last Reconciled 03/25/25 by OLIVE Naidu-JOSH clomiphene citrate 100 mg (2 x 50 mg) PO DAILY 7 days empagliflozin (Jardiance) 10 mg PO DAILY rosuvastatin 20 mg PO QAM sildenafil (Viagra) 25 - 50 mg PO tadalafil (Cialis) 10 mg PO DAILY 90 days HPI Comments Details: Ascencion is a very pleasant 59-year-old male patient of Dr. Rizzo. He has a past medical history of hypercholesteremia and type 2 diabetes. He is being follow-up on today via telehealth for his low libido and hypogonadism. In discussion with the patient today he reports to be doing and feeling well. He reports having completed stimulation testing of Clomid as prescribed. He does feel while he was taking the medication he felt in improvement in his overall mood and libido. He reports shortly after the 7 day course he did feel his symptoms of low libido and erectile dysfunction resurface. Most recent labs reviewed with the patient today as noted and trended below: PSA 07/08 0.4, 01/06 0.8 Total testosterone 08/05 262, 01/05 262, 04/07 290, 11/06 205, 01/06 266, 02/06 463 Free testosterone 01/05 56.9. 04/07 67.0, 11/06 35.5, 01/06 55.6. 02/06 114.4 Estradiol:01/06 21 FSH: 01/06 3.5 LH: 01/06 3.4, 02/06 5.6 Prolactin: 01/06 3.8 SHB/25 14 A1c: 11/06 7.6 We did discuss increase in testosterone and LH status post stimulation testing. We discussed further treatment options and risks and benefits of these treatment options. We also discussed the importance of continuing to manage diabetes for improvement in urological conditions as well as overall health and well-being. We discussed continuing lifestyle modifications to assist with erectile dysfunction. He denies urinary urgency, incontinence, nocturia, hematuria, dysuria, foul smelling urine, changes to urinary stream, flank pain, fever, and or chills. He is happy with his current voiding parameters. He otherwise offers no other issues or concerns at this time. 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 Review of Systems Const All systems reviewed & are unremarkable except as noted in HPI and below Reports as per HPI Eyes Reports no additional complaints ENT Reports no additional complaints Card Reports as per HPI Resp Reports no additional complaints GI Denies abdominal pain and Denies nausea Musc Denies no additional complaints Neuro Reports no additional complaints Physical Exam Const General: cooperative Orientation/consciousness: patient oriented x3 Resp Effort & Inspection: able to speak in complete sentences Neuro General: patient oriented x3 Psych Speech and movement: Clear speech present Attitude: cooperative Thought content: Normal thought content present Insight: Fair insight present (Psych) Judgement: Fair judgement present (Psych) Telehealth Telehealth Telehealth Platform: Telephone Location of provider rendering services: practice address Location of patient: address on file Patient Identification confirmed using: Name, : Yes Telehealth method: voice only Patient verbally consented to treatment: Yes Patient verbally consented to billing insurance company: Yes Patient informed of any privacy concerns related to visit: Yes Minutes spent on Phone/Video with Pt.: 15 Assessment & Plan Assessment & Plan (1) Low libido: Code(s): R68.82 - Decreased libido Category: Medical (2) Hypogonadism in male: Code(s): E29.1 - Testicular hypofunction Category: Medical Plan Most recent hypogonadism labs reviewed with the patient today; as noted above. We discussed further treatment options and risks and benefits of these treatment options. All questions were answered. Start low-dose Enclomphimene as discussed and prescribed. He currently denies any bothersome urinary issues. He reports be happy with current voiding parameters. We discussed obtaining testosterone, PSA, and A1c in 6 months. Follow-up in 6 months with labs to be completed prior; or sooner with any i ssues, concerns, and or questions. Orders: Orders Testosterone, Free/Total Today E29.1 - Testicular hypofunction, R68.82 - Decreased libido Hemoglobin A1c Today E11.9 - Type 2 diabetes mellitus without complications Lutenizing Hormone Today E29.1 - Testicular hypofunction, R68.82 - Decreased libido Prostate Specific Antigen Today E29.1 - Testicular hypofunction, R68.82 - Decreased libido Medications: New [enclomiphene] [facility] [place] Patient's cellphone number [phone] 6.25 mg PO DAILY 90 caps 1RF 90 days [enclomiphene] [facility] [place] Patient's cellphone number [phone] 6.25 mg PO DAILY 90 days 90 caps 1RF Discontinued clomiphene citrate please get labs on the 8th day. [id number] [facility] Member [id number] Discontinued Reason: Patient Completed Course 100 mg (2 x 50 mg) PO DAILY 7 days 14 tabs 0RF E29.1 - Testicular hypofunction, R79.89 - Other specified abnormal findings of blood chemistry Patient Instructions: The patient had an opportunity to ask questions regarding the treatment plan. All questions were answered. Physical exam, labs, and imaging were discussed and reviewed in detail. As well as risks, benefits, and discussion of treatment choices. No major barriers to understanding were identified. The patient expressed understanding and agreement with the above treatment plan. The patient was made aware they should contact our office by phone for worsening of their current condition, the appearance of new symptoms, or with any questions or concerns. Compliance is encouraged with any medications and follow up testing that is ordered. It is a privilege to be allowed the opportunity to participate in? your urological care.? Again, if you have any questions or concerns If you have any questions or concerns please do not hesitate to contact me. The office is [phone]. This note is constructed using voice recognition software. While every effort has been made to ensure accuracy legal support assistant errors may have been included. Yours sincerely, OLIVE Naidu-JOSH Coding Level of Care Code Tele Est Pt Level 3 (75747) Diagnoses Low libido R68.82 Hypogonadism in male E29.1
--- OUTSIDE RECORDS SUMMARY | 2025-03-25 16:04 | XMS_ITS | Clinical Summary ---
Author Organization [employer] Address [address] [place] [address] 7 [place] [address] Care Team Providers Care Wax Pattern Coater Name Role Phone Kala Rizzo [facility] Primary Care Provider [phone] Allergies No known active allergies Medications Diclofenac Sodium (Voltaren) 1 % gel Apply 2 g topically every 6 (six) hours. 01/25/20 22 Active Lancets 28G misc Act mickie Multiple Vitamin (MULTIVITAMIN ADULT PO) Take 1 tablet by mouth in the morning. Active rosuvastatin (Crestor) 20 MG tabletIndications: Mixed hyperlipidemia TAKE 1 TABLET BY MOUTH ONCE DAILY IN THE MORNING 30 tablet 07/23/19 25 Active glucose blood (FREESTYLE TEST STRIPS) test stripIndications:T ype 2 diabetes mellitus without complication, without long-term current use of insulin (HCC) USE TO TEST BLOOD SUGAR THREE TIMES A DAY 100 each 08/10/19 25 Active ketoconazole (NIZOral) 2 % creamIndications:T inea cruris Apply topically Once per day. For 14 days. 20 g 01/11/20 25 Active empagliflozin (Jardiance) 25 MGIndications:Type 2 diabetes mellitus without complication, without long-term current use of insulin (HCC) Take 1 tablet (25 mg) by mouth Once per day. 30 tablet 02/06/20 25 026 Active tadalafil (Cialis) 10 MG tablet Take 1 tablet by mouth Once per day. 12/19/19 25 Active Foot Care Products ([place] Cushions) padsIndications:Co rns and callus 1 each Once per day. 18 each 1 03/12/20 Active Blood Glucose Monitoring Suppl (FreeStyle Lite) device Inject under the skin if needed. Use as instructed Discontinu ed(Therapy completed) empagliflozin (Jardiance) 10 MGIndications:Type 2 diabetes mellitus without complication, without long-term current use of insulin (HCC) Take 1 tablet (10 mg) by mouth Once per day. 30 tablet 11 07/16/19 25 Discontinu ed(Dose adjustment ) tadalafil (Cialis) 5 MG tabletIndications: Erectile dysfunction, unspecified erectile dysfunction type Take 1 tablet (5 mg) by mouth 2 times daily. 180 tablet 3 07/16/19 Discontinu ed(Dose adjustment ) clotrimazole (Lotrimin) 1 % creamIndications:T inea pedis of both feet Apply topically 2 times daily for 28 days. 60 g 5 02/06/20 25 Active Problems Problem Noted Date Diagnosed Date Tubular adenoma 03/12/2025 Low libido 03/12/2025 Ganglion cyst of finger of right hand 03/12/2025 Overview (03/12/2025): RF Arthritis of carpometacarpal (CMC) joint of righ t thumb 03/12/2025 Tinea cruris 01/10/2025 Assessment & Plan (01/10/2025 10:44 AM EDT): Suspect tinea significant itching and irritation, trial ketoconazole nightly, And prn betamethasone bid for itch. History of colon polyps 07/24/2023 Chronic low back pain 05/04/2022 Assessment & Plan (05/04/2022 1:44 PM EST): - Long hx of LBP r/t job requiring heavy lifting - Previously seen by chiropractor at [facility] - No numbness, tingling, loss of bowel/bladder function - No imaging on file Healthcare maintenance 04/29/2022 Overview (01/26/2024): C-Scope: Upcoming appt. 2024. Every 3 years-tubular adenoma[address] [facility] PSA:.41 06/2023 Vision Exam: Referred 07/2023 Dental Care: UTD Immunizations: UTD Assessment & Plan (07/24/2023 9:47 PM EDT): Referral to GI for repeat CRC screening Dental referral Vision referral Accepts updated COVID vaccine Assessment & Plan (05/04/2022 1:51 PM EST): C-Scope: 03/[address] [facility], polpys repeat due 3-5 years PSA: Ordered today HCV Screen: Neg 2019 HIV Screen: Neg 2019 STI Screening: Declines Vision Exam: 05/2021 [place] Dental Care: Will establish at [facility] Immunizations: Needs shingles in pharmacy. Otherwise [...] b.I.d if tolerating well Referral to [facility] Nutrition Assessment & Plan (06/23/2023 10:12 [...] Working with DM RN Educator at [facility] BMP: Ordered today Microalbumin: Ordered today Foot Exam: 01/2022, Risk 0 Eye Exam: [place] 05/2021 Lipid panel: Ordered today ASCVD: Calculate [...] Encounters Date Type Department Care Team Description 03/12/2025 6:00 PM EDT Office Visit [facility] WALK-IN CENTER [address] [place] [phone] Priscila Helm MD Corns and callus (Primary Dx) 03/12/2025 Travel 02/06/2025 Orders Only GENERIC EXTERNAL DATA DEPARTMENT Provider, Generic External Data 02/05/2025 9:15 AM EDT Office Visit [facility] MEDICINE [address] [place] [phone] Kala Rizzo FNP Type 2 diabetes mellitus without complication, without long-term current use of insulin ([facility]) (Primary Dx); Tinea pedis of both feet; Skin lesion; Encounter for immunization 02/05/2025 Travel 02/03/[address] [address] Kala Rizzo FNP chart prep 01/29/2025 Patient Outreach [address] [place] [address] [facility] Pre-visit Planning ((Unable to reach for PVP screening, LVM) to be completed in office ) 01/10/2025 10:30 AM EDT Office Visit [address] [address] Reyna Dutta NP Type 2 diabetes mellitus without complication, without long-term current use of insulin ([facility]) (Primary Dx); Tinluis e burrelluris 01/10/2025 Travel 01/09/2025 Travel 01/09/[address] [address] Nohemi Cai [place] CHARTPREP 01/09/[address] [address] [facility] 12/23/2024 Orders Only GENERIC EXTERNAL DATA DEPARTMENT [...] Sign Reading Time Taken Comments Blood Pressure 137/76 03/12/2025 5:57 PM EDT Pulse 65 03/12/2025 5:57 PM EDT Temperature 36.9 C (98.4 F) 03/12/2025 5:57 PM EDT Respiratory Rate 20 03/12/2025 5:57 PM EDT Oxygen Saturation 98% 01/10/2025 10:34 AM EDT Inhaled Oxygen Concentration - - Weight 92.5 kg (204 lb) 03/12/2025 5:57 PM EDT Height 190.5 cm (6' 3 ) 02/05/2025 9:01 AM EDT Body Mass Index 25.5 02/05/2025 9:01 AM EDT Plan of Treatment Health Maintenance Due Date Last Done Comments CT Colonography 1964 FIT DNA/Cologuard 1964 FIT 1964 FOBT 1964 Sigmoidoscopy 1964 Diabetes: Hemoglobin A1C 04/12/2025 025, 10/29/2024, 07/15/2024, Additional history exists Eye Exam 07/27/2025 07/28/2023, 05/2023, 05/15/2021 Diabetes: Urine Protein Screening 10/29/2025 10/29/2024, 06/30/2023, 06/03/2020 Lipid Panel 10/29/2025 10/29/2024, 06/15, 06/03/2020, Additional history exists Disability Screening 01/10/2026 01/10/2025 Alcohol/Substance Use Screening 02/05/2026 02/05/2025 Depression Screening 02/05/2026 02/05/2025, 02/06/20 25 Diabetes: Foot Exam 02/05/2026 02/05/2025, 02/05/2025, 10/25/2023, Additional history exists SDOH Screening 02/05/2026 02/05/2025 Tobacco Screening 03/12/2026 03/12/2025 Colonoscopy 07/02/2027 07/02/2024, 03/26/2021 Colorectal Cancer Screening [...] Procedure Name Priority Date/Time Associated Diagnosis Comments TESTOSTERONE, TOTAL, MALES (ADULT), IA Routine 02/06/2025 8:49 AM EDT TESTOSTERONE, FREE (DIALYSIS) AND TOTAL,MS Routine 02/06/2025 8:49 AM EDT LH Routine 02/06/2025 8:49 AM EDT POCT GLUCOSE Routine 02/05/2025 9:16 AM EDT Type 2 diabetes mellitus without complication, without long-term current use of insulin ([facility]) POCT GLYCATED HEMOGLOBIN, TOTAL Routine 01/10/2025 10:42 AM EDT Type 2 diabetes mellitus without complication, without long-term current use of insulin ([facility]) POCT GLUCOSE Routine 01/10/2025 10:36 AM EDT Type 2 diabetes mellitus without complication, without long-term current use of insulin ([facility]) ESTRADIOL, FREE Routine 12/23/2024 9:25 [...] Recently Relevant to Health Maintenance Results * Testosterone, Free (Dialysis) And Total, MS (02/06/2025 8:49 AM EDT) Only the most recent of2 resultswithin the time period is included. Testosterone, Total 463 250 - 1100 ng/dL [facility] Comment:For additional infor zaina, please refer tohttp://education.Editas Medicine.MileIQ/faq/OcyphHilcwolhjkvxSMPQYONVY171(This link is being provided for informational/educational purposes only.)This test was developed and its analytical performancecharacteristics have been determined by [employer] [place], [place]. It hasnot been cleared or approved by the U.S. Food and DrugAdministration. This assay has been validated pursuantto the CLIA regulations and is used for clinicalpurposes. Testosterone, Free 114.4 35.0 - 155.0 pg/mL [facility] Comment:This test was develo ped and its analytical performancecharacteristics have been determined by [facility] [employer] [place], [place]. It hasnot been cleared or approved by the U.S. Food and DrugAdministration. This assay has been validated pursuantto the CLIA regulations and is used for clinicalpurposes.THIS TEST WAS PERFORMED AT:[id number] [place] [address]VXUGTYPMICAH CALLAHAN MD,PHD 02/06/2025 8:49 AM EDT 02/06/2025 10:57 AM EDT Generic External Data Provider LAB BLOOD ORDERAB LES Final Result Performing Organization Address City/[facility]/ZIP Co de Phone Number [facility] [address] [place] [phone] * Testosterone, Total, males (Adult), [place] (02/06/2025 8:49 AM EDT) Testosterone, Total TNP [facility] Comment:DUPLICATE 02/06/2025 8:49 AM EDT 02/06/2025 10:57 AM EDT Generic External Data Provider LAB BLOOD ORDERAB LES Final Result Performing Organization Address City/[facility]/ZIP Co de Phone Number [facility] [address] [place] [phone] * LH (02/06/2025 8:49 AM EDT) Only the most recent of2 resultswithin the time period is included. Lutenizing Hormone 5.6 1.6 - 15.2 mIU/mL [facility] Comment:THIS TEST WAS PERFOR MED AT:[facility] [address] [address]ZSVEZHAYLIE LAUGHLIN MD 02/06/2025 8:49 AM EDT 02/06/2025 10:57 AM EDT Generic External Data Provider LAB BLOOD ORDERAB LES Final Result [facility] [address] [place] [phone] [phone] * POCT Glucose (02/05/2025 9:16 AM EDT) Only the most recent of2 resultswithin the time period is included. Glucose Blood, POC 160 60 - 200 mg/dL [employer] Media Lot # [id number] Lot# Expiration Date , Blood Capillary blood specimen / Unknown 02/05/2025 9:16 AM EDT [facility] RESIDENTIAL ROOFER POINT OF CARE TEST ENTER/EDIT ORDERABLES Final Result * (ABNORMAL) POCT HGB A1C (01/10/2025 10:42 AM EDT) Hemoglobin A1C 7.4(A) 4.0 - 5.7 % QC Media Lot # [id number] Lot# Expiration Date , Blood 01/10/2025 10:4 2 AM EDT Reyna Dutta NP POINT OF CARE TEST ENTER/EDIT OR DERABLES Final Result * (ABNORMAL) Estradiol, Free (12/23/2024 9:25 AM EDT) Estradiol, Free 0.49(A) pg/mL [facility] Comment:Reference Range:ADUL TS: < OR = 0.45 Estradiol, Ultrasensitive, LC/MS 21 < OR = 29 pg/mL [facility] Comment:This test was develo ped and its analytical performancecharacteristics have been determined by [employer].It has not been cleared or approved by the FDA. This assayhas been validated pursuant to the CLIA regulations and isused for clinical purposes.THIS TEST WAS PERFORMED AT:[facility]/[place] [id number] [place] [address]QHCBUJIMENEZ LINDA MD,PHD,WENDY 12/23/2024 9:25 AM EDT 12/23/2024 11:18 AM EDT us Generic External Data Provider LAB BLOOD ORDERAB LES Final Result Performing Organization Address [facility]/ZIP Co de Phone Number [facility] [address] [place] [phone] * (ABNORMAL) Sex Hormone Binding Globulin (SHBG) (12/23/2024 9:25 AM EDT) Sex Hormone Binding Globulin 14(A) 22 - 77 nmol/L [facility] Comment:THIS TEST WAS PERFOR MED AT:[address] [place] [address]OEOTBHAYLIE LAUGHLIN MD 12/23/2024 9:25 AM EDT 12/23/2024 11:18 AM EDT us Generic External Data Provider LAB BLOOD ORDERAB LES Final Result Performing Organization Address [facility] Co de Phone Number [facility] [address] [place] [phone] * Prolactin (12/23/2024 9:25 AM EDT) Prolactin 3.8 2.0 - 18.0 ng/mL [facility] Comment:THIS TEST WAS PERFOR MED AT:[address] [place] [address]MJBTDTHOR LAUGHLIN MD 12/23/2024 9:25 AM EDT 12/23/2024 11:18 AM EDT us Generic External Data Provider LAB BLOOD ORDERAB LES Final Result Performing Organization Address [facility] de Phone Number [facility] [address] [place] [phone] * PSA,Total (12/23/2024 9:25 AM EDT) Pathologist [facility] Prostate Specific Antigen 0.75 <0.05 - 4.0 ng/mL [facility] Comment:PSA methodology: Ena Romero i ChemiluminescentMicroparticle Immunoassay (CMIA) 12/23/2024 9:25 AM EDT 12/23/2024 11:22 AM EDT us Generic External Data Provider LAB BLOOD ORDERAB LES Final Result Performing Organization Address [facility] Phone Number [facility] [address] [place] [phone] * FSH (12/23/2024 9:25 AM EDT) Pathologist [facility] Follicle Stimulating Hormone 3.5 1.4 - 12.8 mIU/mL [facility] Comment:THIS TEST WAS PERFOR MED AT:[facility] [address] [address]CTYWFHAYLIE LAUGHLIN MD 12/23/2024 9:25 AM EDT 12/23/2024 11:18 AM EDT us Generic External Data Provider LAB BLOOD ORDERAB LES Final Result Performing Organization Address [facility] Co de Phone Number [facility] [address] [place] [phone] * Albumin, Random Urine W/Creatinine (10/29/2024 9:44 AM EDT) Creatinine, Urine 70.46 mg/dL [facility] Microalbumin Urine <5.0 mg/L [facility] Microalbum Creatinine Ratio Ur TNP <30 ug/mg cr [facility] Comment:Unable to calculate albumin/creatinine ratio due to lowmicroalbumin or creatinine result. Urine 10/29/2024 9:44 AM EDT 10/29/2024 11:32 AM EDT [facility] LAB URINE ORDERABLES Final Re sult Performing Organization Address [facility] de Phone Number [facility] [address] [place] [phone] * (ABNORMAL) Lipid Panel, Standard (10/29/2024 9:44 AM EDT) Triglycerides 94 <150 mg/dL [facility] Comment:Desirable Triglyceri de: less than 150 mg/dLBorderline High Triglyceride 150-199 mg/dLHigh Triglyceride: 200-499 mg/dLVery High Triglyceride: greater than or equal to 5OO mg/dL Cholesterol 174 <200 mg/dL [facility] Comment:Desirable Cholestero l: less than 200 mg/dLBorderline High Cholesterol: 200-239 mg/dLHigh Cholesterol: greater than 239 mg/dL LDL Cholesterol Calculated 105(H) <100 mg/dL [facility] Comment:Desirable LDL: less than 100 mg/dLNear Optimal/Above Optimal LDL: 110- 129 mg/dLBorderline High LDL: 130-159 mg/dLHigh LDL: 160-189 mg/dLVery High LDL: greater than or equal to 190 mg/dL HDL Cholesterol 51 >40 mg/dL [facility] Comment:Desirable HDL: great er than 40 mg/dL Note: This HDL assay may give artificially low results in patients with liver disease. Blood Venous blood specimen / Unknown 10/29/2024 9:44 AM EDT 10/29/2024 11:45 AM EDT [facility] LAB BLOOD ORDERABLES Final Re sult Performing Organization Address [facility] Co de Phone Number [facility] [address] [place] [phone] * Hm Colonoscopy (07/02/2024 2:27 PM EST) Historical Provider HEALTH MAINTENANCE Final Result * Referral to Optometry (07/28/2023) [facility] OUTPATIENT REFERRAL ORDERABLE S Final Result * HEPATITIS PANEL, ACUTE W/REFLEX TO CONFIRMATION (03/10/2020 2:16 PM EDT) HEPATITIS B CORE ANTIBODY (IGM) NON-REACT [facility] NON-[facility]ACT [facility] HEPATITIS B SURFACE ANTIGEN NON-REACT [facility] NON-[facility]ACT [facility] HEPATITIS A IGM NON-REACT [facility] NON-REACT [facility] Comment: For additional information, please refer to http://Fetchmob.broadbandchoices/faq/YDI151 (This link is being provided for informational/ educational purposes only.) HEPATITIS C ANTIBODY NON-REACT [facility] NON-REACT [facility] INDEX 0.01 <1.00 [facility] Comment: HCV antibody was non-reactive. There is no laboratory evidence of HCV infection. In most cases, no further action is required. However, if recent HCV exposure is suspected, a test for HCV RNA (test code 75032) is suggested. For additional information please refer to http://Stand In/faq/MAG53u6 (This link is being provided for informational/ [...] a test for HCV RNA (test code 06821) is suggested. For additional information please refer to http://Fetchmob.broadbandchoices/faq/NQU67i2 (This link is being provided for informational/ educational purposes only.) HEPATITIS A IGM NON-REACT [facility] NON-REACT [facility] Comment: For additional information, please refer to http://Fetchmob.broadbandchoices/faq/ZUF323 (This link is being provided for informational/ educational purposes only.) HEPATITIS A IGM NON-REACT [facility] NON-REACT [facility] Comment: For additional information, please refer to http://Stand In/faq/AMM086 (This link is being provided for informational/ [...] a test for HCV RNA (test code 23168) is suggested. For additional information please refer to http://Stand In/faq/AEQ32d3 (This link is being provided for informational/ educational purposes only.) HEPATITIS A IGM NON-REACT [facility] NON-REACT [facility] Comment: For additional information, please refer to http://Stand In/faq/CNI329 (This link is being provided for informational/ [...] a test for HCV RNA (test code 39379) is suggested. For additional information please refer to http://Stand In/faq/QQF23t9 (This link is being provided for informational/ educational purposes only.) 03/10/2020 2:16 PM EDT us Micah Bentley [facility]IDENTIAL [facility] HISTORICAL/NON ORDERA BLE LABS Final Result [facility] [address] * HIV 1/2 ANTIGEN/ANTIBODY,FOURTH GENERATION W/RFL [...] purpose. For additional information please refer to http://Fetchmob.broadbandchoices/faq/NNU883 (This link is being provided for informational/ educational purposes only.) The performance of this assay has not been clinically validated in patients less than 2 years old. HIV-1/2 ANTIGEN AND ANTIBODIES, 4TH GENERATION W/ REFLEX NON-REACT MICKIE NON-REACT MICKIE [facility] Comment: HIV-1 antigen and HIV-1/HIV-2 [...] purpose. For additional information please refer to http://Fetchmob.broadbandchoices/faq/QUY693 (This link is being provided for informational/ educational purposes only.) The performance of this assay has not been clinically validated in patients less than 2 years old. HIV-1/2 ANTIGEN AND ANTIBODIES, 4TH GENERATION W/ REFLEX NON-REACT [facility] NON-REACT [facility] Comment: HIV-1 antigen and HIV-1/HIV-2 [...] purpose. For additional information please refer to http://Fetchmob.broadbandchoices/faq/LQR150 (This link is being provided for informational/ educational purposes only.) The performance of this assay has not been clinically validated in patients less than 2 years old. HIV-1/2 ANTIGEN AND ANTIBODIES, 4TH GENERATION W/ REFLEX NON-REACT [facility]IE NON-REACT [facility] Comment: HIV-1 antigen and HIV-1/HIV-2 [...] purpose. For additional information please refer to http://Fetchmob.Editas Medicine.MileIQ/faq/VEP426 (This link is being provided for informational/ educational purposes only.) The performance of this assay has not been clinically validated in patients less than 2 years old. HIV-1/2 ANTIGEN AND ANTIBODIES, 4TH GENERATION W/ REFLEX NON-REACT [facility]IE NON-REACT [facility] Comment: HIV-1 antigen and HIV-1/HIV-2 [...] purpose. For additional information please refer to http://education.Editas Medicine.MileIQ/faq/HYD973 (This link is being provided for informational/ educational purposes only.) The performance of this assay has not been clinically validated in patients less than 2 years old. 03/10/2020 2:16 PM EDT us Micah Bentley [facility] LAB BLOOD ORDERABLES Final Result [facility] [address] from Last 3 Months or Most Recently Relevant to Health Maintenance Insurance [facility] 3 Care Teams Wax Pattern Coater Relationship Specialty Start Date End Date Kala Rizzo FNP [address] [place] [phone] PCP - General Family Medicine 10/22/21
--- OUTSIDE RECORDS SUMMARY | 2025-03-25 16:04 | XMS_ITS | Encounter Summary ---
Author Organization [employer] Address [address] [facility] 7 [place] [address] Care Team Providers Care Program Manager Environmental Planning Name Role Phone [facility] Primary Care Provider [phone] Reason for Visit * Reason Comments Med Change Request Encounter Details Date Type Department Care Team ([facility] st Contact Info) Description 08/10/2023 Refill [facility] [address] [place], [place] [phone] [facility] [address] [place], [place] [phone] Type 2 diabetes mellitus without complication, without long-term current use of insulin ([facility]) Social History Tobacco Use Types Packs/Day Years [...] without long-term current use of insulin (HCC) documented in this encounter Additional Health Concerns Assessment Noted Time PHQ-9 Depression Total Score: 0 07/21/19 24 9:18 AM EST documented as of this encounter Care Teams Program Manager Environmental Planning Relationship Specialty Start Date End Date Kala Rizzo FNP [address] [place] [phone] PCP - General Family Medicine 10/22/21 documented as of this encounter
--- OUTSIDE RECORDS SUMMARY | 2025-03-25 16:04 | XMS_ITS | Encounter Summary ---
Author Organization [employer] Address [address] [facility] [address]t [place] [address] Care Team Providers Care Online Facilitator Name Role Phone Kala Rizzo FIELD REPRESENTATIVE Primary Care Provider [phone] Encounter Details Date Type Department Care Team (Late st Contact Info) Description 07/03/2024 Orders Only [facility]ICINE [address] [place] [address] Provider, MD Valerie Social History Tobacco Use [...] documented as of this encounter Care Teams Online Facilitator Relationship Specialty Start Date End Date Kala Rizzo FNP [address] [place] [phone] PCP - General Family Medicine 10/22/21 documented as of this encounter
--- OUTSIDE RECORDS SUMMARY | 2025-03-25 16:04 | XMS_ITS | Encounter Summary ---
Author Organization [employer] Address [address] [facility] 7t [place] [address] Care Team Providers Care Stone Mill Operator Name Role Phone Kala Rizzo [facility] Primary Care Provider Encounter Details Date Type Department Care Team ([facility] st Contact Info) Description 03/31/[address] [facility] MEDICINE [address] [place] [address] Lori Mccray Social History Tobacco Use Types [...] documented as of this encounter Care Teams Stone Mill Operator Relationship Specialty Start Date End Date Kala Rizzo FNP [address] [place] [id number] PCP - General Family Medicine 10/22/21 documented as of this encounter
--- OUTSIDE RECORDS SUMMARY | 2025-03-25 16:04 | XMS_ITS | Encounter Summary ---
Author Organization [employer] Address [address] [place] [address] 7 [place] [address] Care Team Providers Care Commercial Carpenter Name Role Phone [facility] Primary Care Provider Reason for Visit * Reason Comments Med Refill Encounter Details Date Type Department Care Team (Late st Contact Info) Description 08/29/2022 Refill [facility] MEDICINE [address] [place], [place] [phone] [facility] [address] [place] [address] Type 2 diabetes mellitus without complication, without long-term current use of insulin ([facility]) Social History Tobacco Use Types Packs/Day [...] complication, without long-term current use of insulin ([facility]) documented in this encounter Additional Health Concerns Assessment Noted Time PHQ-9 Depression Total Score: 0 04/29/20 22 2:01 PM EST documented as of this encounter Care Teams Commercial Carpenter Relationship Specialty Start Date End Date Kala Rizzo FNP [address] [place] [phone] PCP - General Family Medicine 10/22/21 documented as of this encounter
--- OUTSIDE RECORDS SUMMARY | 2025-03-25 16:04 | XMS_ITS | Clinical Summary ---
Author Organization [address] [facility] Address [address] [place] [address] Phone Care Team Providers Care Police Captain Precinct Name Role Phone [facility] Primary Care Provider [phone] Allergies No known active allergies Medications multivitamin/ir on/folic acid (CENTRUM ORAL) Take 1 Tab by mouth daily. Active UNABLE TO FIND ELASTIC BANDAGES & SUPPORTS (WRIST BRACE DELUXE/RIGHT L-XL) MISC Active UNABLE TO FIND ELASTIC BANDAGES & SUPPORTS (WRIST BRACE DELUXE/LEFT L-XL) MISC Active Active Problems Problem Noted Date Diagnosed Date Bilateral inguinal hernia 09/04/2014 Immunizations Immunization Administration Dates Next Due Tdap Tetanus diptheria [...] 2014 Zoster Vaccines (1 of 2) 2014 Colorectal Cancer Screening: Colonoscopy 12/23/2019 12/22/2014 Cholesterol Screening (Lipid Panel) 04/17/2022 04/10/2015 Social Influencers of Health Screening 04/17/2022 Depression Screening 05/15/2024 DTaP,Tdap,and Td Vaccines (2 - Td or Tdap) 11/05/2024 11/05/2014 COVID-19 Vaccine ( - 2024-2 6 season) 2025 Influenza Vaccine (#1) 2025 RSV [...] C Screening (09/07/2015) Hepatitis C Screening ABSTRACTED Historical Provider HEALTH MAINTENANCE Final Result * (ABNORMAL) Lipid panel (04/10/2015) LDL/HDL Ratio 5(A) 0 - 4 Triglycerides 185(A) 0 - 150 mg/dL Cholesterol 184 0 - 200 mg/dL HDL 35(A) >=40 mg/dL LDL Cholesterol 112(A) 0 - 100 mg/dL Blood Venous blood specimen / Unknown Historical Provider LAB BLOOD ORDERABLES Viridiana l Result * Colonoscopy (12/22/2014) Colonoscopy no interpretation , abstracted Anatomical Region Laterality Modality Other [facility] Provider HEALTH MAINTENANCE Final Result * HIV Screening (02/23/2004) Pathologist [facility] HIV Screening ABSTRACTED [facility] Provider HEALTH MAINTENANCE Final Result from Last 3 Months or Most Recently Relevant to Health Maintenance Insurance [facility] [employer] Care Teams Police Captain Precinct Relationship Specialty Start Date End Date [facility] [address] [place] [phone] PCP - General Family Medicine 03/14/25
--- OUTSIDE RECORDS SUMMARY | 2025-03-25 16:04 | XMS_ITS | Encounter Summary ---
Author Organization [employer] Address [address] [facility] 7 [place] [address] Care Team Providers Care Laborer Filter Plant Name Role Phone [facility] Primary Care Provider [phone] Reason for Visit * Reason Onset Date Comments Med Refill 08/13/2023 Encounter Details Date Type Department Care Team (Late st Contact Info) Description 08/13/2023 Refill [facility] MED & PEDS [address] [place], [place] [phone] [facility] [address] [place], [place] [phone] Type 2 diabetes mellitus without complication, without long-term current use of insulin ([facility]) Social History Tobacco Use Types [...] documented as of this encounter Care Teams Laborer Filter Plant Relationship Specialty Start Date End Date Kala Rizzo FNP [address] [place] [phone] PCP - General Family Medicine 10/22/21 documented as of this encounter
--- OUTSIDE RECORDS SUMMARY | 2025-03-25 16:04 | XMS_ITS | Encounter Summary ---
Author Organization [employer] Address [address] [facility] 7 [place] [address] Care Team Providers Care Electrical Engineering Manager Name Role Phone [facility] Primary Care Provider [phone] Reason for Visit * Reason Onset Date Comments Med Refill 03/24/2024 Encounter Details Date Type Department Care Team (Late st Contact Info) Description 03/24/[address] [facility] MEDICINE [address] [place], [place] [phone] [facility] [address] [place], [place] [phone] Mixed hyperlipidemia; Type 2 diabetes mellitus without complication, without long-term current use of insulin ([facility]); Erectile dysfunction, unspecified erectile [...] without long-term current use of insulin (HCC) Erectile dysfunction, unspecified erectile dysfunction type documented in this encounter Additional Health Concerns Assessment Noted Time PHQ-9 Depression Total Score: 0 01/26/20 24 9:15 AM EDT documented as of this encounter Care Teams Electrical Engineering Manager Relationship Specialty Start Date End Date Kaal Rizzo FNP [address] [place] [id number] PCP - General Family Medicine 10/22/21 documented as of this encounter
--- OUTSIDE RECORDS SUMMARY | 2025-03-25 16:04 | XMS_ITS | Encounter Summary ---
Author Organization [employer] Address [address] [facility] 7 [place] [address] Care Team Providers Care Die Trouble Shooter Name Role Phone [facility] Primary Care Provider [phone] Reason for Visit * Reason Onset Date Comments Med Refill 06/29/2024 Encounter Details Date Type Department Care Team (Late st Contact Info) Description 06/29/2024 Refill [facility] MEDICINE [address] [place], [place] [phone] [facility] [address] [place], [place] [phone] Social History Tobacco Use Types Packs/Day Years [...] documented as of this encounter Care Teams Die Trouble Shooter Relationship Specialty Start Date End Date Kala Rizzo FNP [address] [place] [id number] PCP - General Family Medicine 10/22/21 documented as of this encounter
== END 2025-03-25 15:20 | disposition home or self-care (01) ==
LOC: HO.HUSH 14:23
PROVIDERS: PCP Registered Nurse; Visit Provider Nurse Practitioner Family
DX: R68.82 Decreased libido (principal); E29.1 Testicular hypofunction
CPT/HCPCS: 99213